=== PATIENT | female | born 1970 | race Caucasian/White ===

== ENCOUNTER 2024-01-16 22:45 | Inpatient (IN) | payer BC, SELFPAY ==
[2024-01-16 18:53] VITALS: BP 130/67
--- NOTE | 2024-01-16 19:43 | ED.GENMED ---
History of Present Illness
General
Chief Complaint: Breathing Problem
Source: patient and family
Time Seen by Provider: 01/16/24 19:30
Travel History
Have you had any contact with someone who has COVID-19?: No
Do you have any symptoms of coronavirus? Fever > 100 degrees, chills, cough, shortness of breath, sore throat, loss of taste or smell, muscle aches, or headache?: No
History of Present Illness
History of Present Illness:
53-year-old female with past medical history of hypertension, pancreatitis, anxiety presenting to the emergency department for evaluation after she started feeling unwell over the weekend with URI-like symptoms, the last 2 days has had 2 separate
episodes of transient shortness of breath stating that yesterday she was walking outside trying to avoid heavy rain fall when she started to feel the shortness of breath and lasted for about 10 minutes or so and then resolved. Again today patient
experiences symptoms again while she was sitting on a bench with symptoms lasting again for a few minutes and then resolving. Patient notes a persistent cough without any sputum production but does feel as if she is wheezing often. Patient has not
attempted any medications for relief. She has no known history of asthma/COPD. Does note a previous history of pneumonia following a surgical procedure due to aspiration. Social history was significant for smoking 1 pack/day for at least 10
years. Patient denies any chest pain, palpitations, diaphoresis, exertional dyspnea, orthopnea, lower extremity edema.
Past History
Past History
ED Past Medical History: HTN and Other (chronic abdominal pain; pancreatitis, )
ED Past Surgical History: Cholecystectomy and Other (gastric bypass, hernia)
Social History
Tobacco: Non-smoker
Alcohol: None
Drug: None
Personal:
Living: with family
Review of Systems
Review of Systems
All Other Systems: ROS reviewed and negative except as documented in HPI and ROS
Phy Exam
Physical Exam
Physical Exam:
GENERAL: Alert , in no apparent distress
EYE: conjunctiva clear
NECK: Supple, no significant adenopathy.
ENT: o/p clr, mmm.
CARDIAC: Regular rate and rhythm
LUNGS: End expiratory phase wheeze mid bilateral posterior lung barraza. Rhonchorous lung sounds right mid to lower lung zone as well. No accessory muscle use. Speaking full sentences. No acute respiratory distress.
NEUROLOGICAL: Alert and oriented
SKIN: Warm and dry, skin intact.
MUSCULOSKELETAL: well perfused.
PSYCH: Normal and appropriate interaction.
Scores
Heart Failure Risk
Heart Failure Risk Score: Not Applicable
Heart Score for Chest Pain Patients
STEMI patient?: Not applicable
Withdrawal Assessment of Alcohol
Withdrawal Assessment Completed?: Not applicable
Course
Orders/Labs/Results
Orders:
Orders
01/16/24 18:56
EKG [Electrocardiogram (*1)] Urgent
Reason for Study: Shortness of Breath
EKG- Treatment ONCE
01/16/24 19:40
Ipratropium/Albuterol Sulfate [Duoneb] 3 ml INH R NOW ONE
Prednisone [Deltasone] 50 mg PO NOW STA
CR Chest - 2 Views Urgent
Comment:
Reason For Exam: URI like symptoms, cough, no fever
01/16/24 21:24
Albuterol Sulfate [Ventolin Nebules] 10 mg INH R NOW STA
01/16/24 21:42
Basic Metabolic Panel Urgent
COVID-19 Antigen Urgent
Source: Nasal Swab
Complete Blood Count/With Diff Urgent
Influenza A+B Rapid Molecular Urgent
GERALD Source: Nasal Swab
Specimen Description:
01/16/24 21:58
Azithromycin [Zithromax] 500 mg PO NOW STA
CefTRIAXone [Rocephin] 1,000 mg IV NOW STA
01/16/24 22:03
Sterile Water [Sterile Water For Injection] 10 ml .ROUTE .STK-MED ONE
01/16/24 22:29
Admit/Transfer Patient As Directed
Co-Sign Provider:
Level of Care: Inpatient admission
Assign to:: Medical/Surgical
Physician / Group: leia
Diagnosis: pneumonia
Reason for Hospitalization: pneumonia
Expected length of stay greater than two midnights?: Yes
ELOS- Estimated Length of Stay in days: 2
I certify the patient meets the requirements for IP care: Yes
01/16/24 22:30
Code Status As Directed
Resuscitation Status: Full Code
Abnormal Lab Results
01/16/24
21:42
Hgb 11.5 L g/dL
(12.0-16.0)
Hct 34.9 L %
(37.0-47.0)
MPV 11.0 H fL
(7.4-10.4)
Absolute Neuts (auto) 8.9 H 10^3/uL
(1.4-6.5)
Neutrophils % 83.1 H %
(42.2-75.2)
Lymphocytes % 12.0 L %
(20.5-51.1)
Sodium 129 L mmol/L
(135-145)
Chloride 97 L mmol/L
(98-107)
Glucose 144 H mg/dl
(70-99)
01/16/24 21:42
01/16/24 21:42
Vital Signs
Initial and Last Documented VS:
Initial Vital Signs
Temp Pulse Resp BP Pulse Ox
98.9 F 95 22 130/67 97
01/16/24 18:53 01/16/24 18:53 01/16/24 18:53 01/16/24 18:53 01/16/24 18:53
Last Documented Vital Signs
Temp Pulse Resp BP Pulse Ox
98.9 F 91 22 122/70 86
01/16/24 18:53 01/16/24 21:45 01/16/24 21:45 01/16/24 21:00 01/16/24 21:45
MDM/Problems Addressed
Differential Diagnosis Includes:
Pneumonia, viral URI, bronchitis, undiagnosed asthma/COPD exacerbation given patient's smoking history
MDM/Problems Addressed:
53-year-old female presenting to the emergency department for evaluation following a recent upper respiratory infection, now with lingering cough. Wheezing noted on exam but no acute respiratory distress will obtain chest x-ray to rule out
pneumonia. Will order DuoNeb and prednisone. Reassessment following with ENT discharge home. Also of note, Patient is currently taking amoxicillin for an infected tooth as part of recent dental work.
*Radiology
Radiology exam reviewed: radiology read reviewed
*Pulse Oximetry
Patient hypoxic: yes
*EKG
Interpreted by ED Provider?: Yes
Heart Rate: 93
Rate: normal
Rhythm: sinus
Ischemia: no ischemia
*Hand Painter Interpretation
Rate: normal
Rhythm: sinus
*Critical Care Note
Total Time (30-74mins, 75-104mins- exclusive of procedures): Not Applicable
Comment
Comment:
Prior to receiving the DuoNeb informed by nurse that patient's oxygen saturation went down to 87% while she was in room with patient and was placed on 2 L via nasal cannula with good response to 97%. Patient completed DuoNeb without much difficulty
however she remains with wheezing and rhonchi on reevaluation. Chest x-ray was read by radiology as subtle bilateral infiltrates. Will treat with additional albuterol nebulizer given her continued wheezing and reassess following. If patient
remains hypoxic she will require admission.
Patient Management
Discussion with other providers: Hospitalist
Escalation/DeEscalation of care consider admission/obs:
Patient's oxygen off of 2 L via nasal cannula dropped again into the mid to upper 80s. This was turned back on and decision was ultimately made to admit patient due to her pneumonia with mild hypoxia. Patient is in agreement with this plan.
Rocephin and Zithromax ordered for community-acquired pneumonia. She is continuing on her continuous albuterol neb at present. Hospitalist team is aware and accepts for continued evaluation and treatment.
ED Attending Note
-
Portions of this chart may have been created with voice recognition software.� Occasional wrong word or��sound alike� substitutions may have occurred due to the inherent limitations of voice recognition software.
Discharge Plan
Departure
Patient Disposition: Admit
Date of Disposition: 01/16/24
Time of Disposition: 21:58
Presentation/result/management discussed w/ accepting MD/DO: Hospitalist
Discharge Problem:
Pneumonia, Hypoxia
Prescriptions:
No Action
amoxicillin 500 mg Capsule
500 mg PO TID
Patient Comments:
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
atorvastatin [Lipitor] 40 mg Tablet
40 mg PO DAILY
clonazepam 0.5 mg Tablet
0.5 mg PO HS
clonazepam 0.5 mg Tablet
0.5 mg PO DAILYPRN PRN (Reason: anxiety)
lisinopril 10 mg Tablet
10 mg PO DAILY
escitalopram oxalate [Lexapro] 20 mg Tablet
20 mg PO DAILY
Referrals:
Cassius Cruz DO [Family Provider] -
Interventions
Interventions:
*Risk Screen - Suicide Last Done: 01/16/24 18:53
*General Assessment Last Done: 01/16/24 18:53
*Neglect/Abuse Screening Last Done: 01/16/24 18:53
*ED COVID-19 Vaccine History Last Done: 01/16/24 18:53
ED- Cardiac Assessment Last Done: 01/16/24 20:20
ED- Pulmonary Assessment Last Done: 01/16/24 20:20
Discharge Date and Time
Print Language: POLISH
[2024-01-16] MEDS: DUONEB 3 ML INH (20:13)
[2024-01-16] MEDS: DELTASONE 50 MG PO (20:13)
[2024-01-16 20:15] VITALS: BP 109/64
[2024-01-16 21:00] VITALS: BP 122/70
[2024-01-16] MEDS: VENTOLIN NEBULES 10 MG INH (21:43)
[2024-01-16 21:53] LABS: % Basophils 0.3 % (0-2); % Eosinophils 0.7 % (0-6); % Immature Granulocytes 0.4 % (0-0.5); % Monocytes 3.5 % (1.7-9.3); % Neutrophils 83.1 % (42.2-75.2); Absolute Eosinophils 0.1 10^3/uL (0-0.7); Absolute Lymphocytes 1.3 10^3/uL (1.2-3.4); Absolute Monocytes 0.4 10^3/uL (0.1-0.6); Absolute Neutrophils 8.9 10^3/uL (1.4-6.5); Hematocrit 34.9 % (37.0-47.0); Hemoglobin 11.5 g/dL (12.0-16.0); Mean Corpuscular Hgb 27.1 pg (27.0-31.0); Mean Corpuscular Volume 82.1 fL (81.0-99.0); Nucleated Red Blood Cells % 0 %; Platelet Count 180 10^3/uL (130-400); Red Blood Cell Count 4.25 10^6/uL (4.20-5.40); Red Cell Dist. Width 14.2 % (11.5-14.5); White Blood Cell Count 10.7 10^3/uL (4.8-10.8)
[2024-01-16] MEDS: ZITHROMAX 500 MG PO (22:10)
[2024-01-16] MEDS: ROCEPHIN 1000 MG IV (22:10)
[2024-01-16 22:11] LABS: COVID-19 Antigen Negative (Negative)
[2024-01-16 22:12] LABS: Blood Urea Nitrogen 13 mg/dl (7-17); Calcium 8.4 mg/dl (8.4-10.2); Carbon Dioxide 22 mmol/L (22-30); Chloride 97 mmol/L (98-107); Glucose 144 mg/dl (70-99); Potassium 4.2 mmol/L (3.5-5.1); Sodium 129 mmol/L (135-145); eGFR > 60.00
--- NOTE | 2024-01-16 22:34 | HPS.HSE ---
Family Physician
-
Family Physician: Cassius Cruz
Chief Complaint
-
shortness of breath
History of Present Illness
53-year-old female past medical history of hypertension, pancreatitis, anxiety, gastric bypass, presented to the emergency room after having URI-like symptoms over the weekend. She has been having cough over the past 3 days without sputum
production but with wheezing. Denies sore throat or runny nose. She has had transient shortness of breath while she was walking yesterday lasted 10 minutes and then resolved. Today she had similar symptoms while she was sitting lasting a few
minutes and then resolved. Today she had severe charley horses all over her body. She has not taken any medications. She denies any chest pain, fevers or chills. She has chronic lower extremity edema. She did have some nausea but denies any
vomiting. Patient's family notes that she has been more confused and lethargic today.
She had tooth removal 3 days ago and since then she has been taking amoxicillin. She did have an episode of diarrhea today.
She smokes a pack of cigarettes a day. She denies alcohol use.
Medical History
Past Medical History
Past Medical History: Reports Other ( hypertension, pancreatitis, anxiety, gastric bypass,)
Past Surgical History: Reports Other (Cholecystectomy, hernia repair, gastric bypass, breast reduction surgery, bilateral shoulder surgeries, tonsillectomy, rummy tuck )
Social History
Tobacco: Smoker
Alcohol: None
Drug: None
Family History
Family History: Not pertinent
Allergies / Home Medications
Allergies reflects when Allergies were last updated in [employer].
Home Medications with original date entered in [employer]
Allergy/Medication List:
Allergies
Allergy/AdvReac Type Severity Reaction Status Date / Time
ciprofloxacin [From Cipro] Allergy Rash Verified 12/07/22 21:58
Home Medications
amoxicillin 500 mg capsule 500 mg PO TID 01/16/24
atorvastatin 40 mg tablet (Lipitor) 40 mg PO DAILY 01/16/24
clonazepam 0.5 mg tablet 0.5 mg PO DAILYPRN PRN anxiety 01/16/24
clonazepam 0.5 mg tablet 0.5 mg PO HS 01/16/24
escitalopram oxalate 20 mg tablet (Lexapro) 20 mg PO DAILY 01/16/24
lisinopril 10 mg tablet 10 mg PO DAILY 01/16/24
Review of Systems
-
History Source: Patient
A 12 point ROS was completed and negative except as noted: Yes
Constitutional: Reports No Symptoms
EENT: Reports No Symptoms
Respiratory: Reports See HPI
Cardiac: Reports No Symptoms
Abdomen/GI: Reports No Symptoms
: Reports No Symptoms
Musculoskeletal: Reports No Symptoms
Skin: Reports No Symptoms
Neurological: Reports No Symptoms
Endocrine: Reports No Symptoms
Hematologic/Lymphatic: Reports No Symptoms
Psych: Reports No Symptoms
Physical Exam
Vital Signs
Vital Signs
Temp Pulse Resp BP Pulse Ox
98.9 F 91 22 122/70 86
01/16/24 18:53 01/16/24 21:45 01/16/24 21:45 01/16/24 21:00 01/16/24 21:45
Physical Exam
General: Well Developed, Well Nourished and No Apparent Distress
HEENT: NormoCephalic, Moist mucous membranes and Atraumatic
Respiratory: Wheezes
Cardiac: S1/S2 and Regular Rhythm; No Murmur or Rub
GI: Soft, Non Tender, Non Distended and Normal Bowel Sounds; No Organomegaly
Rectal: Deferred by Provider
Musculoskeletal: No Clubbing, No Cyanosis and No Edema
Skin: No Rash
Neuro: Nonfocal/grossly intact
Laboratory Results
-
01/16/24 21:42
01/16/24 21:42
Data Reviewed
-
Lab Data: Labs Reviewed by me
Old Records: Reviewed
Impression/Plan
-
IMPRESSION:
PLAN:
# Community-acquired pneumonia
-COVID-negative
-Influenza negative
-IV fluids
-Ceftriaxone/azithromycin
-Significant bilateral wheezing on examination
-DuoNebs every 6 hours
-Prednisone 40 mg daily
-Mucinex
# Antibiotic associated diarrhea
-Check C. difficile, stool culture, norovirus if recurrent diarrhea although appears to have resolved
# Hyponatremia likely due to GI loss/poor p.o. intake
-Monitor with IV fluid
# Recent tooth extraction
-Stop amoxicillin while on IV antibiotics
Essential hypertension
-Continue lisinopril
Chronic venous insufficiency
-Swelling stable
Anxiety
-Continue Lexapro, clonazepam
Hyperlipidemia
-Continue statin
History of gastric bypass
History of pancreatitis
Active smoker
-Nicotine patch
Full code
DVT prophylaxis�heparin
Regular diet
[2024-01-16] MEDS: NSS 1000 IV (23:40)
[2024-01-17] MEDS: KLONOPIN 0.5 MG PO ×3 (00:31→22:43)
[2024-01-17] MEDS: LEXAPRO 20 MG PO ×2 (00:31→08:30)
[2024-01-17 06:13] LABS: % Basophils 0.1 % (0-2); % Immature Granulocytes 0.4 % (0-0.5); % Lymphocytes 7.5 % (20.5-51.1); Absolute Lymphocytes 0.5 10^3/uL (1.2-3.4); Absolute Monocytes 0.1 10^3/uL (0.1-0.6); Absolute Neutrophils 6.5 10^3/uL (1.4-6.5); Hematocrit 33.3 % (37.0-47.0); Hemoglobin 11.2 g/dL (12.0-16.0); Mean Corp Hgb Conc. 33.6 g/dL (33.0-37.0); Mean Corpuscular Hgb 27.3 pg (27.0-31.0); Mean Platelet Volume 11.2 fL (7.4-10.4); Nucleated Red Blood Cells % 0 %; Platelet Count 173 10^3/uL (130-400); Red Blood Cell Count 4.11 10^6/uL (4.20-5.40); Red Cell Dist. Width 14.4 % (11.5-14.5); White Blood Cell Count 7.2 10^3/uL (4.8-10.8)
[2024-01-17 06:45] LABS: Blood Urea Nitrogen 13 mg/dl (7-17); Calcium 8.1 mg/dl (8.4-10.2); Carbon Dioxide 20 mmol/L (22-30); Chloride 103 mmol/L (98-107); Glucose 295 mg/dl (70-99); Potassium 4.5 mmol/L (3.5-5.1); Sodium 130 mmol/L (135-145); eGFR > 60.00
[2024-01-17] MEDS: DUONEB 3 ML INH ×4 (08:29→20:34)
[2024-01-17] MEDS: DELTASONE 40 MG PO (08:30)
[2024-01-17] MEDS: MUCINEX 600 MG PO ×2 (08:30→11:23)
[2024-01-17] MEDS: LIPITOR 40 MG PO (08:30)
[2024-01-17] MEDS: ZESTRIL 10 MG PO (08:32)
[2024-01-17] MEDS: HEPARIN 5000 UNITS SC ×2 (08:32→19:43)
[2024-01-17] MEDS: NICODERM TRANSDERMAL TRANSDERM (08:34)
[2024-01-17 08:35] VITALS: BP 111/76
--- NOTE | 2024-01-17 09:45 | W.PN.HOSP.TC ---
Today's Communication/Plan
-
..
Assessment / Plan
Assessment / Plan
Physical Exam
General: Well Developed, Well Nourished and No Apparent Distress
HEENT: NormoCephalic, Moist mucous membranes and Atraumatic
Respiratory: Wheezes
Cardiac: S1/S2 and Regular Rhythm; No Murmur or Rub
GI: Soft, Non Tender, Non Distended and Normal Bowel Sounds; No Organomegaly
Rectal: Deferred by Provider
Musculoskeletal: No Clubbing, No Cyanosis and No Edema
Skin: No Rash
Neuro: Nonfocal/grossly intact
# Community-acquired pneumonia
-COVID-negative
-Influenza negative
-IV fluids
-Check urine for Legionella
-Ceftriaxone/azithromycin
-Significant bilateral wheezing on examination
-DuoNeb every 6 hours
-Start the patient on IV steroid
-Mucinex
-Appreciate pulmonary input
# Acute hypoxic respiratory failure. SaO2 86 on room air and 92% on 2 L sometimes dropped to 89% while talking
Continue to treat pneumonia and COPD exacerbation
# Hyponatremia
Mild. No confusion
#Suspected COPD/asthma with acute exacerbation
Continue steroid therapy, nebulizer, oxygen
Counseled to avoid smoking
# hyperglycemia, possibly induced by steroid. Will start the patient on insulin sign scale. Check hemoglobin A1c
# Antibiotic associated diarrhea
-Check C. difficile, stool culture, norovirus if recurrent diarrhea although appears to have resolved
# Hyponatremia likely due to GI loss/poor p.o. intake
-Monitor with IV fluid
# Recent tooth extraction
-Stop amoxicillin while on IV antibiotics
Essential hypertension
-Continue lisinopril
Chronic venous insufficiency
-Swelling stable
Anxiety
-Continue Lexapro, clonazepam
Hyperlipidemia
-Continue statin
History of gastric bypass
History of pancreatitis
Active smoker
-Nicotine patch
Full code
DVT prophylaxis�heparin
Regular diet
Total time spent to see the patient, examine the patient on the floor, review data and lab results, discuss treatment plan with patient, nursing staff around 55 minutes.
Anticipated Discharge: 24 - 48 hours
Subjective/Interval History
-
Date of Service: January 17, 2024
She feels better but still weak
less cough and sob
Objective Data
-
Labs:
Laboratory Results
01/16/24 01/17/24
21:42 05:58
WBC 10.7 7.2
Hgb 11.5 L 11.2 L
Hct 34.9 L 33.3 L
Plt Count 180 173
Sodium 129 L 130 L
Potassium 4.2 4.5
Chloride 97 L 103
Carbon Dioxide 22 20 L
BUN 13 13
Creatinine 0.9 0.8
Glucose 144 H 295 H
Calcium 8.4 8.1 L
Vital Signs:
Vital Signs
Temp Pulse Resp BP Pulse Ox
98.9 F 72 16 122/70 94
01/16/24 18:53 01/17/24 08:30 01/17/24 08:30 01/16/24 21:00 01/17/24 08:30
I&O
01/16/24 01/17/24 01/18/24
06:59 06:59 06:59
Intake Total 1120 / 1120
Balance 1120 / 1120
--- NOTE | 2024-01-17 09:49 | CON.PUL ---
Consultation
Consultation Request
Date/Time Consultation Requested: 01/17/2024-7 AM
Date/Time Consultation Performed: 01/17/2024-8 AM
Requesting Provider: Hospitalist
Performing Provider: Dr. Cerrato
Reason for Consultation: Pneumonia
Medical History
-
Chief Complaint: Shortness of breath
History of Present Illness:
53-year-old obese smoking female with history of hypertension, pancreatitis, gastric bypass, anxiety who has had covid twice in the past the last time a couple months ago presents with upper respiratory tract symptoms with progressive shortness of
breath, cough over the last 5 days-pulmonary consulted for pneumonia and shortness of breath 01/17/24. Patient states that her son gave her a respiratory tract infection last weekend. She had progressive nasal congestion but eventually chest
congestion. She had a nonproductive cough. No fevers chills or night sweats. She admitted to increasing shortness of breath, wheezing, and cough. She continues to smoke a pack of cigarettes daily. She has chronic mild lower extremity edema
which is not worsened. She did not complain of any abdominal pain nausea vomiting weakness or numbness. She has gained 60 pounds in the last 1 year. She does snore at nighttime.
Past Medical History
Past Medical History: None (Hypertension. Obesity-history of gastric bypass. History of pancreatitis. Anxiety. Cholecystectomy. Hernia repair. Breast reduction. Bilateral shoulder surgeries. Tummy tuck. Tonsillectomy.)
Social History
Tobacco: Smoker (1 pack/day x 35 years)
Alcohol: None
Drug: None
Personal:
Living: With Family
Occupational Exposures: No known asbestos exposure
Environmental Exposures: No known tuberculosis exposure
Family History
Family History: Reviewed & Not Pertinent
Allergies / Home Medications
Allergies
Allergy/AdvReac Type Severity Reaction Status Date / Time
ciprofloxacin [From Cipro] Allergy Rash Verified 12/07/22 21:58
Home Medications
�Medication �Instructions �Recorded �Confirmed �Last Taken �Type
amoxicillin 500 mg capsule 500 mg PO TID 01/16/24 01/16/24 01/16/24 History
atorvastatin 40 mg tablet (Lipitor) 40 mg PO DAILY 01/16/24 01/16/24 01/15/24 History
clonazepam 0.5 mg tablet 0.5 mg PO DAILYPRN PRN anxiety 01/16/24 01/16/24 01/16/24 History
clonazepam 0.5 mg tablet 0.5 mg PO HS 01/16/24 01/16/24 Unknown History
escitalopram oxalate 20 mg tablet 20 mg PO DAILY 01/16/24 01/16/24 01/15/24 History
(Lexapro)
lisinopril 10 mg tablet 10 mg PO DAILY 01/16/24 01/16/24 01/15/24 History
Review of Systems
-
Unable to Obtain full review of systems at this time due to: Other (Per HPI)
Vitals / Labs / Diagnostic Testing
Vital Signs
Temp Pulse Resp BP Pulse Ox
98.9 F 72 16 122/70 94
01/16/24 18:53 01/17/24 08:30 01/17/24 08:30 01/16/24 21:00 01/17/24 08:30
Lab Data
01/17/24 05:58
01/17/24 05:58
Microbiology
01/16/24 21:42 Nasal Swab Influenza Types A & B (GWENDOLYN) - Final
Negative for Influenza A & B, NAAT
Negative results must be combined with clinical observations
and patient history.
Nucleic Acid Amplification test (NAAT)performed on the
[employer] platform.
Diagnostic Testing:
Physical Exam
-
Exam:
Well-nourished and well-developed in no apparent distress
HEENT-atraumatic, normocephalic, thick neck
Neck-supple, no JVD, no bruit
Heart-regular rate and rhythm-no murmurs, rubs or gallops
Chest with diminished breath sounds, prolonged expiratory time, expiratory wheezes and rhonchi with crackles at both bases
Back without CVA tenderness
Abdomen-soft, nontender, nondistended, no hepatosplenomegaly
Extremities-no cyanosis, clubbing, trace lower extremity edema
Integument-intact, no rashes, lesions or ecchymosis
Neurology-alert and oriented, nonfocal motor and sensory exam
Assessment
-
53-year-old obese smoking female with history of hypertension, pancreatitis, gastric bypass, anxiety who has had covid twice in the past the last time a couple months ago presents with upper respiratory tract symptoms with progressive shortness of
breath, cough over the last 5 days-pulmonary consulted for pneumonia and shortness of breath 01/17/24.
Community-acquired pneumonia
Suspected COPD/asthma with acute exacerbation
Antibiotic associated diarrhea
Hyponatremia-serum sodium 129
Recent tooth extraction-treated with amoxicillin
Ljbtaw-wuzzlovvpc-ebmlyyazoe 11.2
Hyperglycemia-blood sugar 295
At risk for obstructive sleep apnea
Conditions present prior to admission:
Hypertension.
Obesity-history of gastric bypass-recently gained 60 pounds / 1 year
History of pancreatitis.
Anxiety.
Cholecystectomy. Hernia repair. Breast reduction. Bilateral shoulder surgeries. Tummy tuck. Tonsillectomy.
Plan
Respiratory decompensation likely related to respiratory tract infection and COPD/asthma exacerbation-significant wheezing on exam
Supplemental oxygen as needed
High flow oxygen if needed
Nebulizers
Mucolytic's
Placed on prednisone-try Decadron Decadron
Aspiration precautions
Check cultures
Urine Legionella and streptococcal antigen
Empiric antibiotics-Rocephin and azithromycin initiated
Replace electrolytes
Monitor hemoglobin
Monitor blood sugar
Insulin supplementation as needed
Smoking cessation counseling provided and will be ongoing
Nicotine patch
DVT prophylaxis-on subcu heparin
Nutrition
Early mobilization
Outpatient pulmonary/sleep disorders [id number], smoking cessation counseling, low-dose lung cancer screening CAT scans, etc.
Diagnostic data:
Chest x-ray 01/16/24-subtle pneumonia seen bilaterally
Data Reviewed
-
EKG: Report reviewed by me
Radiology: Image personally visualized and interpreted and Report reviewed by me
Medical Tests (Nuc Med, Echo etc): Report reviewed by me
Labs: Labs reviewed by me
Old Records: Reviewed
Total Time Spent with Patient (in minutes): 65
[2024-01-17] MEDS: DECADRON 4 MG IV ×2 (11:23→19:45)
[2024-01-17] MEDS: NSS 1000 IV ×2 (11:30→23:21)
[2024-01-17 12:07] LABS: Glucose - Point of Care 281 mg/dl (70-99)
[2024-01-17 15:05] VITALS: BP 88/53
[2024-01-17 17:34] LABS: Glucose - Point of Care 341 mg/dl (70-99)
[2024-01-17] MEDS: NOVOLOG FLEXPEN-MODERATE RESISTANCE 7 UNITS SC (18:01)
[2024-01-17] MEDS: MUCINEX 1200 MG PO (19:43)
[2024-01-17 19:55] VITALS: BP 111/65
[2024-01-17 22:33] LABS: Glucose - Point of Care 299 mg/dl (70-99)
[2024-01-17] MEDS: ROCEPHIN 1000 MG IV (22:43)
[2024-01-17] MEDS: STERILE WATER FOR INJECTION 10 ML IV (22:44)
[2024-01-17 23:00] VITALS: BP 132/70
[2024-01-17] MEDS: ZITHROMAX INFUSION 250 IV (23:20)
[2024-01-18] MEDS: PROTONIX 40 MG PO (00:55)
[2024-01-18] MEDS: KLONOPIN 0.5 MG PO ×2 (00:56→21:17)
--- NOTE | 2024-01-18 01:13 | PTCARENOTE ---
Pt reported feeling of 'heart burn,' pointing to center of chest and upward toward throat. Pt also reported feeling of a 'panic attack.' Pt stated they take 'clonazepam' for 'panic attacks.' Notified RODOLFO Uriarte. New orders placed.
Administered daily PRN clonazepam. Plan of care ongoing.
[2024-01-18] MEDS: DECADRON 4 MG IV (04:59)
[2024-01-18 07:00] VITALS: BP 111/67
[2024-01-18 07:16] LABS: Glucose - Point of Care 264 mg/dl (70-99)
[2024-01-18] MEDS: LIPITOR 40 MG PO (07:25)
[2024-01-18] MEDS: LEXAPRO 20 MG PO (07:25)
[2024-01-18] MEDS: MUCINEX 1200 MG PO ×2 (07:25→21:16)
[2024-01-18] MEDS: NOVOLOG FLEXPEN-MODERATE RESISTANCE 5 UNITS SC ×2 (07:26→12:14)
[2024-01-18] MEDS: NICODERM TRANSDERMAL 14 MG TRANSDERM (07:26)
[2024-01-18] MEDS: HEPARIN 5000 UNITS SC ×2 (07:26→21:16)
[2024-01-18] MEDS: ZESTRIL 10 MG PO (07:36)
[2024-01-18] MEDS: DUONEB 3 ML INH ×4 (08:14→21:42)
[2024-01-18 08:19] LABS: Blood Urea Nitrogen 19 mg/dl (7-17); Calcium 8.9 mg/dl (8.4-10.2); Carbon Dioxide 25 mmol/L (22-30); Chloride 104 mmol/L (98-107); Glucose 256 mg/dl (70-99); Potassium 5.3 mmol/L (3.5-5.1); Sodium 134 mmol/L (135-145); eGFR > 60.00
--- NOTE | 2024-01-18 10:35 | W.PN.HOSP.TC ---
Today's Communication/Plan
-
.
Assessment / Plan
Assessment / Plan
Physical Exam
General: Well Developed, Well Nourished and No Apparent Distress
HEENT: NormoCephalic, Moist mucous membranes and Atraumatic
Respiratory: much less wheezes
Cardiac: S1/S2 and Regular Rhythm; No Murmur or Rub
GI: Soft, Non Tender, Non Distended and Normal Bowel Sounds; No Organomegaly
Rectal: Deferred by Provider
Musculoskeletal: No Clubbing, No Cyanosis and No Edema
Skin: No Rash
Neuro: Nonfocal/grossly intact
# Community-acquired pneumonia
se is feeling better, less cough
trial to wean off O2 today
-COVID-negative
-Influenza negative
- no need for more IV fluids
-C/w Ceftriaxone/azithromycin
-DuoNeb every 6 hours
- IV steroid
-Mucinex
-Appreciate pulmonary input
# Acute hypoxic respiratory failure. SaO2 86 on room air with distress, sob and tachypnea/tachycardia and 92% on 2 L sometimes dropped to 89% while talking
Continue to treat pneumonia and COPD exacerbation
# Hyperkalemia
Already got lisinopril today, hold further doses.
will give Lokelma
# Hyponatremia, better today at 134
Mild. No confusion
#Suspected COPD/asthma with acute exacerbation
Continue steroid therapy, nebulizer, oxygen
Counseled to avoid smoking
# hyperglycemia, possibly induced by steroid. AM BS 264
Add Lantus at 10 units
c/w insulin sign scale. Check hemoglobin A1c
# Antibiotic associated diarrhea
-No diarrhea
No abd pain
# Recent tooth extraction
-Stop amoxicillin while on IV antibiotics
Essential hypertension
-Low normal
holding lisinopril with high K
Chronic venous insufficiency
-Swelling stable
Anxiety
-Continue Lexapro, clonazepam
Hyperlipidemia
-Continue statin
History of gastric bypass
History of pancreatitis
Active smoker
-Nicotine patch
Full code
DVT prophylaxis�heparin
Regular diet
Total time spent to see the patient, examine the patient on the floor, review data and lab results, discuss treatment plan with patient, nursing staff around 57 minutes.
Anticipated Discharge: 24 - 48 hours
Subjective/Interval History
-
Date of Service: January 18, 2024
She feels better
no fevers
less cough
trial of weaning off nasal O2
Objective Data
-
Labs:
Laboratory Results
01/18/24
07:08
Sodium 134 L
Potassium 5.3 H
Chloride 104
Carbon Dioxide 25
BUN 19 H
Creatinine 0.8
Glucose 256 H
Calcium 8.9
Vital Signs:
Vital Signs
Temp Pulse Resp BP Pulse Ox
97.5 F 73 16 111/67 96
01/18/24 07:00 01/18/24 08:15 01/18/24 08:15 01/18/24 07:36 01/18/24 08:15
I&O
01/17/24 01/18/24 01/19/24
06:59 06:59 06:59
Intake Total 1120 / 1120 1330 / 1330
Balance 1120 / 1120 1330 / 1330
[2024-01-18 11:05] LABS: Glycohemoglobin (HgbA1c) 7.7 % (4.0-5.6)
[2024-01-18 11:50] LABS: Glucose - Point of Care 297 mg/dl (70-99)
[2024-01-18] MEDS: LOKELMA 10 GRAM PO (12:06)
[2024-01-18] MEDS: NSS 1000 IV (13:07)
--- NOTE | 2024-01-18 14:39 | W.PN.PUL3 ---
Today's Communication / Plan
-
Transition to prednisone
Continue antibiotics
Continue nebulizer while in the hospital
Mucolytic's
Increase activity as able
Assessment
-
53-year-old obese smoking female with history of hypertension, pancreatitis, gastric bypass, anxiety who has had covid twice in the past the last time a couple months ago presents with upper respiratory tract symptoms with progressive shortness of
breath, cough over the last 5 days-pulmonary consulted for pneumonia and shortness of breath 01/17/24.
Community-acquired pneumonia
Suspected COPD/asthma with acute exacerbation
Antibiotic associated diarrhea
Hyponatremia-serum sodium 129
Recent tooth extraction-treated with amoxicillin
Rqqnlp-fkekkkbgfc-szculyhcai 11.2
Hyperglycemia-blood sugar 295
At risk for obstructive sleep apnea
Conditions present prior to admission:
Hypertension.
Obesity-history of gastric bypass-recently gained 60 pounds / 1 year
History of pancreatitis.
Anxiety.
Cholecystectomy. Hernia repair. Breast reduction. Bilateral shoulder surgeries. Tummy tuck. Tonsillectomy.
Plan
Respiratory decompensation likely related to respiratory tract infection and COPD/asthma exacerbation-significant wheezing on exam.
-
Not requiring oxygen
Nebulizers sfcidb-fwy-ryzsy continue while in the hospital
Mucolytic's
Transition to prednisone 30 mg. Not bronchospastic on exam 01/18/2024. Patient hyperglycemic as well. Decrease by 10 mg every 72 hours to off
Aspiration precautions
Check cultures negative so far
No sputum available.
Urine Legionella and streptococcal antigen negative so far
Empiric antibiotics-Rocephin and azithromycin continue for now. Hopefully can transition to oral antibiotics in the next 24 hours.
Monitor blood sugar, particularly on high-dose of steroids
Insulin supplementation as needed
Smoking cessation counseling provided and will be ongoing
Nicotine patch
DVT prophylaxis-on subcu heparin
Outpatient pulmonary/sleep disorders jocrti-gw-[id number], smoking cessation counseling, low-dose lung cancer screening CAT scans, etc.
If improved from the pulmonary perspective possible discharge tomorrow.
Diagnostic data:
Chest x-ray 01/16/24-subtle pneumonia seen bilaterally
Subjective Data
-
Date of Service:
Date of Service: January 18, 2024
Chief Complaint: Pulmonary Follow Up (Acute exacerbation COPD/pneumonia)
Subjective:
Patient feels much better, was able to ambulate around the levin without significant symptoms
No longer has any wheezing
No significant phlegm production
Denies hemoptysis
Review of Systems
Cardiopulmonary: Dyspnea on Exertion (n), Cough, Sputum Production (n) and Hemoptysis (n)
GI: Abdominal Pain (n), Nausea (n) and Vomiting (n)
Objective Data
Data Reviewed
Vital Signs / I&O / Oxygen:
Vital Signs
Temp Pulse Resp BP Pulse Ox
97.5 F 62 16 111/67 96
01/18/24 07:00 01/18/24 11:21 01/18/24 11:21 01/18/24 07:36 01/18/24 11:21
Intake and Output
01/17/24 01/18/24 01/19/24
06:59 06:59 06:59
Intake Total 1120 / 1120 1330 / 1330
Balance 1120 / 1120 1330 / 1330
SaO2 96
Nasal Cannula flow liters per 2
minute
Physical Exam
General: Respiratory Distress (n)
HEENT: Normocephalic
Cardiovascular: S1-S2 and Regular Rhythm
Respiratory: Wheeze and Non-Labored Respirations
GI: Soft and Non Distended
Neurology: Awake, Alert, Oriented and AO x 3
Skin: Warm
Labs/Micro/Reports
Lab Data
01/17/24 05:58
01/18/24 07:08
Microbiology
01/16/24 21:42 Nasal Swab Influenza Types A & B (GWENDOLYN) - Final
Negative for Influenza A & B, NAAT
Negative results must be combined with clinical observations
and patient history.
Nucleic Acid Amplification test (NAAT)performed on the
[employer] platform.
[2024-01-18 15:00] VITALS: BP 142/76
--- NOTE | 2024-01-18 15:13 | CM ---
Patient seen bedside, spouse present but left the room, initial assessment completed. Patient reports she lives with her and two sons in a multiple story home, 5 steps to enter. Patient denies DME, VN, or SNF. Patient confirms PCP Cassius
Anthony, pharmacy [facility], confirms she has prescription coverage. CM will continue to follow for discharge planning needs.
Plan; home no needs likely.
[2024-01-18 17:00] LABS: Glucose - Point of Care 348 mg/dl (70-99)
[2024-01-18] MEDS: MONISTAT-3 (MICONAZOLE) 200 MG VAG (17:18)
[2024-01-18] MEDS: NOVOLOG FLEXPEN-MODERATE RESISTANCE 9 UNITS SC (17:19)
[2024-01-18 21:17] LABS: Glucose - Point of Care 243 mg/dl (70-99)
[2024-01-18] MEDS: LANTUS 0.100000000000000006 UNITS SC (21:18)
[2024-01-18] MEDS: STERILE WATER FOR INJECTION 10 ML IV (21:19)
[2024-01-18] MEDS: ZITHROMAX INFUSION 250 IV (21:19)
[2024-01-18] MEDS: ROCEPHIN 1000 MG IV (21:19)
[2024-01-18 23:00] VITALS: BP 107/52
[2024-01-19 07:00] VITALS: BP 106/65
[2024-01-19 07:13] LABS: Blood Urea Nitrogen 20 mg/dl (7-17); Calcium 8.5 mg/dl (8.4-10.2); Chloride 109 mmol/L (98-107); Glucose 159 mg/dl (70-99); Potassium 4.2 mmol/L (3.5-5.1); Sodium 134 mmol/L (135-145); eGFR > 60.00
[2024-01-19 07:23] LABS: Carbon Dioxide 22 mmol/L (22-30)
[2024-01-19] MEDS: DUONEB 3 ML INH (07:26)
[2024-01-19 07:57] LABS: Glucose - Point of Care 153 mg/dl (70-99)
[2024-01-19] MEDS: NOVOLOG FLEXPEN-MODERATE RESISTANCE 1 UNITS SC ×2 (08:48→12:08)
[2024-01-19] MEDS: MUCINEX 1200 MG PO (08:49)
[2024-01-19] MEDS: DELTASONE 30 MG PO (08:49)
[2024-01-19] MEDS: LIPITOR 40 MG PO (08:49)
[2024-01-19] MEDS: LEXAPRO 20 MG PO (08:49)
[2024-01-19] MEDS: LANTUS 0.100000000000000006 UNITS SC (08:50)
[2024-01-19] MEDS: HEPARIN 5000 UNITS SC (08:51)
[2024-01-19] MEDS: NICODERM TRANSDERMAL TRANSDERM (08:52)
--- NOTE | 2024-01-19 09:26 | W.PN.HOSP.TC ---
Today's Communication/Plan
-
.
Assessment / Plan
Assessment / Plan
Physical Exam
General: Well Developed, Well Nourished and No Apparent Distress
HEENT: NormoCephalic, Moist mucous membranes and Atraumatic
Respiratory: much less wheezes
Cardiac: S1/S2 and Regular Rhythm; No Murmur or Rub
GI: Soft, Non Tender, Non Distended and Normal Bowel Sounds; No Organomegaly
Rectal: Deferred by Provider
Musculoskeletal: No Clubbing, No Cyanosis and No Edema
Skin: No Rash
Neuro: Nonfocal/grossly intact
# Community-acquired pneumonia
se is feeling better, less cough
SaO2 94-96% on RA while resting but dropped to 87% upon ambulation
-COVID-negative
-Influenza negative
- no need for more IV fluids
-C/w Ceftriaxone/azithromycin
-DuoNeb every 6 hours
- IV steroid, changed to oral prednisone and taper.
-Mucinex
-Appreciate pulmonary input
# Newly diagnosed DM
HGB A1c 7.7
Hx of gestation diabetes in past
Will start the patient on Metformin
c/w Accu-checks, AM BS 153. Taper steroid quickly.
Consult computer systems hardware analyst on Saturday.
# Acute hypoxic respiratory failure. SaO2 86 on room air with distress, sob and tachypnea/tachycardia and 92% on 2 L sometimes dropped to 89% while talking
Continue to treat pneumonia and COPD exacerbation
# Hyperkalemia, resolved
holding lisinopril today,
Lokelma given 4/
# Hyponatremia, better today at 134
Mild. No confusion
#Suspected COPD/asthma with acute exacerbation
Continue steroid therapy, nebulizer, oxygen
Counseled to avoid smoking
# hyperglycemia, possibly induced by steroid. AM BS 264
Add Lantus at 10 units
c/w insulin sign scale. Check hemoglobin A1c
# Antibiotic associated diarrhea
-No diarrhea
No abd pain
# Recent tooth extraction
-Stopped amoxicillin while on IV antibiotics
Essential hypertension
-Low normal. AM BP 106/65
Chronic venous insufficiency
-Swelling stable
Anxiety
-Continue Lexapro, clonazepam
Hyperlipidemia
-Continue statin
History of gastric bypass
History of pancreatitis
Active smoker
-Nicotine patch
Full code
DVT prophylaxis�heparin
Regular diet
Total time spent to see the patient, examine the patient on the floor, review data and lab results, discuss treatment plan with patient, nursing staff around 59 minutes.
Anticipated Discharge: 24 - 48 hours
Subjective/Interval History
-
Date of Service: January 19, 2024
No chest pain
No sob
Less cough
Objective Data
-
Labs:
Laboratory Results
01/19/24
06:18
Sodium 134 L
Potassium 4.2
Chloride 109 H
Carbon Dioxide 22
BUN 20 H
Creatinine 0.9
Glucose 159 H
Calcium 8.5
Vital Signs:
Vital Signs
Temp Pulse Resp BP Pulse Ox
97.7 F 62 16 106/65 94
01/19/24 07:00 01/19/24 07:27 01/19/24 07:27 01/19/24 07:00 01/19/24 07:27
I&O
01/18/24 01/19/24 01/20/24
06:59 06:59 06:59
Intake Total 1330 / 1330 1800 / 1800 1010 / 1010
Balance 1330 / 1330 1800 / 1800 1010 / 1010
[2024-01-19 12:01] LABS: Glucose - Point of Care 165 mg/dl (70-99)
--- NOTE | 2024-01-19 13:02 | W.PN.UPDATE ---
Update Note
Progress Note Update
the patient came and wanted to talk to me to discharge the patient home today
I went up to see the patient and her . They would like to go home and not wait for breastfeeding educator. Explained reasoning to stay in addition to diabetic education, we can monitor blood sugar while using new medicine that was introduced
today, metformin. Patient expressed her wishes to go home and felt safe to do that. She reported that she was going to get an appointment with her primary care doctor tomorrow on Saturday as primary care office is usually accommodating to her.
Patient was given work note to be off work for 2 days which will help her follow-up with her primary care doctor. She was given instructions and prescription for glucometer. Home oxygen evaluation showed good oxygenation with no need for home
oxygen.
Discussed with nursing staff
Total discharge time spent to see the patient, examine the patient on the floor, review data and lab results, discuss discharge plan with patient, nursing staff around 65 minutes.
--- NOTE | 2024-01-19 13:10 | CM ---
CM reviewed chart, patient discharging home with , no needs. Home O2 evaluation completed, does not require home O2. CM will continue to follow for discharge planning needs.
Plan; home no needs.
[2024-01-19 13:34] VITALS: BP 110/75
--- NOTE | 2024-01-19 13:44 | W.DCSUMMARY ---
Discharge Summary
Discharge Data
Date of Admission: 01/16/24
Date of Discharge: 01/19/24
-
Pending Results: No
Hospital Course
53 years old female presented with cough and shortness of breath. Patient was found to have community-acquired pneumonia, with small parenchymal bilateral opacity seen on chest radiography. She had elevated white count. She did not have fevers.
Patient was evaluated by pulmonary doctor. Patient had history of tobacco use. She possibly had underlying chronic obstructive pulmonary disease/asthma exacerbation. Patient had mild hyponatremia without confusion. She had mild hyperkalemia and
was treated with Lokelma. Patient was started on intravenous antibiotic in addition to steroid therapy and nebulizer therapy. She had hypoxia but resolved. She started to improve with resolution of shortness of breath. Cough became less
prominent and she was able to sleep and eat well. Patient was found to have hyperglycemia. She had history of gestational diabetes. Hemoglobin A1c came back 7.7. Patient was treated with insulin sliding scale and was started on metformin
therapy. Patient expressed her wishes to avoid insulin therapy. Patient wanted to follow-up with her primary care doctor and did not want to stay further in the hospital to monitor blood glucose while on oral diabetic medication. Patient was
offered to to meet with clinical educator on Saturday. Patient wanted to go home. Pulmonary doctor recommended outpatient follow-up. Patient was advised to avoid to smoking. Home oxygen therapy revealed no need for oxygen. Patient was ambulating
independently without shortness of breath or dizziness. She remained hemodynamically stable. Patient was discharged in a stable condition. Patient was going to make appointment with her primary care doctor next day for further management of
diabetes and blood work.
Discharge Plan
-
Patient Disposition: Home (Routine Discharge)
Discharge Diagnosis/Procedures: Community-acquired pneumonia. You received intravenous antibiotics. Finish the course of antibiotic at home.
Suspected COPD/asthma with acute exacerbation. You are given an inhaler and prednisone to finish the course. Please follow with pulmonary doctor. Avoid tobacco use.
Antibiotic associated diarrhea
Hyponatremia, sodium at 134. Improved.
Hyperkalemia, resolved
Recent tooth extraction-treated with amoxicillin
Bhgelt-ojtrrcokvz-uzxgtnmttj 11.2
Hyperglycemia- Hemoglobin A1C 7.7 , you were started on Metformin. Please follow with your family doctor for further management.
Diet: As tolerated and Diabetic, Carb Controlled
Activity: No restrictions
Bathing Restrictions: None
Referrals:
Cassius Cruz DO [Family Provider] - in one day
Harlan Cerrato MD [Active] - in one to two weeks (Dr. Cerrato or [facility]-needs PFTs, smoking cessation counseling, home sleep study)
Prescriptions:
New
metformin 1,000 mg Tablet
1,000 mg PO BID@0800,1700 Qty: 60 0RF
guaifenesin 600 mg Tablet Extended Release 12hr
1,200 mg PO Q12 Qty: 8 0RF
nicotine 14 mg/24 hr Patch 24 Hour
14 mg transdermal DAILY Qty: 30 0RF
budesonide-formoterol [Symbicort] 160-4.5 mcg/actuation Hfa Aerosol Inhaler
2 puff inhalation R BID Qty: 10.2 0RF
cefdinir 300 mg capsule
300 mg PO BID Qty: 8 0RF
prednisone 20 mg tablet
20 mg PO DAILY Qty: 2 0RF
Continued
atorvastatin [Lipitor] 40 mg Tablet
40 mg PO DAILY
clonazepam 0.5 mg Tablet
0.5 mg PO HS
clonazepam 0.5 mg Tablet
0.5 mg PO DAILYPRN PRN (Reason: anxiety)
lisinopril 10 mg Tablet
10 mg PO DAILY
escitalopram oxalate [Lexapro] 20 mg Tablet
20 mg PO DAILY
Discontinued
amoxicillin 500 mg Capsule
500 mg PO TID
Patient Comments:
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
Discharge Orders:
Discharge Patient (As Directed); Ordered 01/19/24
Ordered By: Teodoro Mcwilliams
Discharge Date and Time
Discharge Date/Time: 01/19/24 13:42
Print Language: SOMALI
--- NOTE | 2024-01-21 11:32 | PTCARENOTE ---
Diabetes Education- Spoke with Chen this morning to offer diabetes education/glucometer instructions. She had her PCP appointment yesterday and has purchased an Accu-Chek Guide Me glucometer. Chen had hx of GDM and feels that she will be
able to self teach on this meter. Discussed testing pattern and expected results. Will send her information on outpt DSME classes for Jun. She is aware to call if she has trouble with the glucometer.
== END 2024-01-19 13:42 | disposition home or self-care (01) | DRG 193 ==
LOC: 4 WEST ACU 22:45
PROVIDERS: Physician Assistant Medical; ADMITTING PHYSICIAN Hospitalist; ATTENDING PHYSICIAN Internal Medicine; CONSULT PHYSICIAN Internal Medicine Critical Care Medicine; EMERGENCY PHYSICIAN Emergency Medicine; FAMILY PHYSICIAN Family Medicine Adult Medicine
DX: J18.9 Pneumonia, unspecified organism (principal); J96.01 Acute respiratory failure with hypoxia; K52.1 Toxic gastroenteritis and colitis; E87.1 Hypo-osmolality and hyponatremia; J44.0 Chronic obstructive pulmonary disease with (acute) lower respiratory infection; J45.901 Unspecified asthma with (acute) exacerbation; J44.1 Chronic obstructive pulmonary disease with (acute) exacerbation; I10 Essential (primary) hypertension; F41.9 Anxiety disorder, unspecified; F17.210 Nicotine dependence, cigarettes, uncomplicated; K04.7 Periapical abscess without sinus; E11.65 Type 2 diabetes mellitus with hyperglycemia; E87.5 Hyperkalemia; T36.95XA Adverse effect of unspecified systemic antibiotic, initial encounter; E78.5 Hyperlipidemia, unspecified; I87.2 Venous insufficiency (chronic) (peripheral); Z98.84 Bariatric surgery status; Z87.01 Personal history of pneumonia (recurrent); Z88.1 Allergy status to other antibiotic agents; Z11.52 Encounter for screening for COVID-19
CPT/HCPCS: 71046; 80048; 82962; 83036; 85025; 87502; 87811; 93005; 94640; 96374; 99285; 99406

== ENCOUNTER 2024-03-18 21:09 | Emergency (ER) | payer BC, SELFPAY ==
[2024-03-18 21:26] VITALS: BP 127/74
[2024-03-18 21:49] LABS: % Basophils 0.6 % (0-2); % Eosinophils 3.9 % (0-6); % Immature Granulocytes 0.3 % (0-0.5); % Lymphocytes 41.4 % (20.5-51.1); % Monocytes 7.8 % (1.7-9.3); Absolute Eosinophils 0.1 10^3/uL (0-0.7); Absolute Lymphocytes 1.4 10^3/uL (1.2-3.4); Absolute Monocytes 0.3 10^3/uL (0.1-0.6); Absolute Neutrophils 1.5 10^3/uL (1.4-6.5); Hematocrit 34.1 % (37.0-47.0); Hemoglobin 11.4 g/dL (12.0-16.0); Mean Corp Hgb Conc. 33.4 g/dL (33.0-37.0); Mean Corpuscular Hgb 27.5 pg (27.0-31.0); Mean Corpuscular Volume 82.2 fL (81.0-99.0); Mean Platelet Volume 10.7 fL (7.4-10.4); Nucleated Red Blood Cells % 0 %; Platelet Count 140 10^3/uL (130-400); Red Blood Cell Count 4.15 10^6/uL (4.20-5.40); White Blood Cell Count 3.3 10^3/uL (4.8-10.8)
[2024-03-18 21:58] LABS: Lactic Acid 1.3 mmol/L (0.7-2.0)
[2024-03-18 21:59] LABS: ALT (SGPT) 42 U/L (0-35); AST (SGOT) 46 U/L (14-36); Albumin 3.7 g/dl (3.5-5.0); Alkaline Phosphatase 109 U/L (38-126); Blood Urea Nitrogen 15 mg/dl (7-17); Calcium 8.5 mg/dl (8.4-10.2); Carbon Dioxide 25 mmol/L (22-30); Chloride 100 mmol/L (98-107); Glucose 142 mg/dl (70-99); Lipase 47 U/L (23-300); Potassium 4.4 mmol/L (3.5-5.1); Sodium 132 mmol/L (135-145); Total Bilirubin 0.4 mg/dl (0.2-1.3); Total Protein 6.2 g/dl (6.3-8.2); eGFR 59.34
[2024-03-18] MEDS: OMNIPAQUE 50 ML PO (23:09)
--- NOTE | 2024-03-18 23:12 | ED.GENMED ---
History of Present Illness
General
Chief Complaint: Abdominal Symptoms
Source: patient and family
Exam Limitations: none
Time Seen by Provider: 03/18/24 22:54
Travel History
Have you had any contact with someone who has COVID-19?: No
Do you have any symptoms of coronavirus? Fever > 100 degrees, chills, cough, shortness of breath, sore throat, loss of taste or smell, muscle aches, or headache?: No
History of Present Illness
History of Present Illness:
54-year-old female started with nausea and vomiting recently. Then developed abdominal bloating and distention. Some vague abdominal comfort. No back pain no fever. Very irregular bowel movements but this is not unusual. No urinary symptoms.
Symptoms are mild to moderate in nature.
Past History
Past History
ED Past Medical History: HTN and Other (chronic abdominal pain; pancreatitis, )
ED Past Surgical History: Cholecystectomy, Gynecological and Other (gastric bypass, hernia)
Social History
Tobacco: Non-smoker
Alcohol: None
Drug: None
Personal:
Living: with family
Phy Exam
Physical Exam
Physical Exam:
GENERAL: Alert and oriented in no apparent distress
EYE: Orbits normal.
NECK: Supple
CARDIAC: Regular rate and rhythm without any obvious murmurs.
LUNGS: Clear breath sounds,normal
ABDOMEN: Distended. Bowel sounds present but slightly hypoactive. Mildly tympanitic. No point tenderness no rebound or guarding no mass or hernia.
NEUROLOGICAL: Alert and oriented , grossly non-focal
SKIN: Warm and dry, no rash or lesion, no discoloration, skin intact.
MUSCULOSKELETAL: Chronic appearing lower extremity edema
PSYCH: Normal and appropriate interaction.
Course
Orders/Labs/Results
Orders:
Orders
03/18/24 21:37
Complete Blood Count/With Diff Urgent
Comprehensive Metabolic Panel Urgent
Lactic Acid Urgent
Lipase Urgent
03/18/24 23:04
Iohexol [Omnipaque] See Protocol PO NOW STA
03/18/24 23:05
0.9% Sodium Chloride 500 ml [Nss] 500 ml IV BOLUS
03/19/24 01:00
CT Abd/pel W Iv And Oral Contr Urgent
Reason For Exam: Pain/distention/gastric bypass
03/19/24 02:14
EKG [Electrocardiogram (*1)] Urgent
Reason for Study: Abdominal Pain
03/19/24 02:15
EKG- Treatment ONCE
0.9% Sodium Chloride 1000 ml [Nss] 1,000 ml IV BOLUS
03/19/24 02:20
Urinalysis Reflex To Culture Urgent
Date Specimen was Collected: 03/19/24
Time Specimen was Collected: 02:19
03/19/24 02:31
Add On- LAB Urgent
Comments:: tsh refles t4
Tests Added?: tsh reflex t4
Abnormal Lab Results
03/18/24
21:37
WBC 3.3 L 10^3/uL
(4.8-10.8)
RBC 4.15 L 10^6/uL
(4.20-5.40)
Hgb 11.4 L g/dL
(12.0-16.0)
Hct 34.1 L %
(37.0-47.0)
RDW 16.0 H %
(11.5-14.5)
MPV 10.7 H fL
(7.4-10.4)
Sodium 132 L mmol/L
(135-145)
Creatinine 1.1 H mg/dL
(0.6-1.0)
Glucose 142 H mg/dl
(70-99)
AST 46 H U/L
(14-36)
ALT 42 H U/L
(0-35)
Total Protein 6.2 L g/dl
(6.3-8.2)
03/18/24 21:37
03/18/24 21:37
Vital Signs
Initial and Last Documented VS:
Initial Vital Signs
Temp Pulse Resp BP Pulse Ox
98.3 F 78 18 127/74 98
03/18/24 21:26 03/18/24 21:26 03/18/24 21:26 03/18/24 21:26 03/18/24 21:26
Last Documented Vital Signs
Temp Pulse Resp BP Pulse Ox
98.3 F 78 18 116/58 96
03/18/24 21:26 03/18/24 21:26 03/18/24 21:26 03/19/24 02:33 03/19/24 02:33
MDM/Problems Addressed
Differential Diagnosis Includes:
Differential would include enteritis/partial SBO. Doubt full SBO. Internal hernia. Sigmoid volvulus. Labs are stable. CT scan pending.
*Radiology
Radiology exam reviewed: radiology read reviewed (No acute findings thank you yeah just polyp.)
*Pulse Oximetry
Patient hypoxic: no
*EKG
Interpreted by ED Provider?: Yes
Interpretation: normal
Comparison EKG: no changes
Heart Rate: 78
Rate: normal
Rhythm: sinus
Independence: normal axis
Interval: long QT
QRS Pattern: normal QRS
Ischemia: non-specific ST changes
Data Reviewed
Review of Other/Old Records Reveals: Labs, Testing and Discharge Summary
Update Note
Update Note:
0210.... Patient CT is unremarkable. She has a slightly low white count but have a relatively normal differential. Mild elevation in LFTs. Would be most consistent with a viral syndrome. She has a nonsurgical abdomen. Her blood pressure is
reading low on the monitor however manual blood pressure was 110/70. We will give her another liter of fluids send her urinalysis for completeness and get an EKG although clinically very low suspicion for cardiac. She clearly is describing
abdominal symptoms. If all this is stable I see no indication for admission and patient is comfortable with light diet and close follow-up with her primary care
ED Attending Note
-
Portions of this chart may have been created with voice recognition software.� Occasional wrong word or��sound alike� substitutions may have occurred due to the inherent limitations of voice recognition software.
Discharge Plan
Departure
Patient with high blood pressure during this ER visit?: No
Discharge Problem:
Abdominal pain/distention, Mildly long QT interval
Instructions: Abdominal Pain
Prescriptions:
No Action
atorvastatin [Lipitor] 40 mg Tablet
40 mg PO DAILY
clonazepam 0.5 mg Tablet
0.5 mg PO HS
clonazepam 0.5 mg Tablet
0.5 mg PO DAILYPRN PRN (Reason: anxiety)
lisinopril 10 mg Tablet
10 mg PO DAILY
escitalopram oxalate [Lexapro] 20 mg Tablet
20 mg PO DAILY
metformin 1,000 mg Tablet
1,000 mg PO BID@0800,1700 Qty: 60 0RF
guaifenesin 600 mg Tablet Extended Release 12hr
1,200 mg PO Q12 Qty: 8 0RF
nicotine 14 mg/24 hr Patch 24 Hour
14 mg transdermal DAILY Qty: 30 0RF
budesonide-formoterol [Symbicort] 160-4.5 mcg/actuation Hfa Aerosol Inhaler
2 puff inhalation R BID Qty: 10.2 0RF
cefdinir 300 mg capsule
300 mg PO BID Qty: 8 0RF
prednisone 20 mg tablet
20 mg PO DAILY Qty: 2 0RF
Referrals:
Cassius Cruz DO [Family Provider] - Follow up in 2-3 days
Activity Restrictions/Additional Instructions:
Your QT interval under EKG is minimally lengthened. This would have nothing to do with your abdominal symptoms. However if you are started on medications you should mention that this interval is minimally elevated.
Return sooner with worsening symptoms including progressive distention abdominal pain vomiting fever or any other concerning symptoms
Interventions
Interventions:
*Risk Screen - Suicide Last Done: 03/18/24 21:26
*General Assessment Last Done: 03/18/24 21:26
*Neglect/Abuse Screening Last Done: 03/18/24 21:26
ED- Fall Risk Assessment Last Done: 03/18/24 23:13
*ED COVID-19 Vaccine History Last Done: 03/18/24 23:13
FA-Xwmmut-Qballpucca Assessment Last Done: 03/18/24 23:13
Discharge Date and Time
Print Language: HUNGARIAN
[2024-03-18 23:13] VITALS: BMI 42.3
[2024-03-18 23:19] VITALS: BP 105/68
[2024-03-18] MEDS: NSS 500 IV (23:31)
[2024-03-19] VITALS: BP 94/61
[2024-03-19 02:06] VITALS: BP 95/74
[2024-03-19] MEDS: NSS 1000 IV (02:24)
[2024-03-19 02:33] VITALS: BP 116/58
[2024-03-19 02:33] LABS: Urine Albumin Negative (Neg - Trace); Urine Bilirubin Negative (Negative); Urine Character Clear (Clear); Urine Color Yellow; Urine Glucose Negative (Negative); Urine Ketone Negative (Negative); Urine Leukocyte Negative (Negative); Urine Nitrite Negative (Negative); Urine Occult Blood Negative (Negative); Urine Urobilinogen Negative (Neg - 1+)
[2024-03-19 03:07] VITALS: BP 126/71
[2024-03-19 04:00] VITALS: BP 133/73
[2024-03-19 04:12] LABS: TSH Reflex To Free T4 2.22 uIU/ml (0.47-4.68)
[2024-03-19 04:21] VITALS: BP 128/81
== END 2024-03-19 04:31 | disposition home or self-care (01) ==
LOC: EMR 21:09
PROVIDERS: EMERGENCY PHYSICIAN Emergency Medicine; FAMILY PHYSICIAN Family Medicine Adult Medicine
DX: R10.9 Unspecified abdominal pain (principal); R14.0 Abdominal distension (gaseous); I45.81 Long QT syndrome; I10 Essential (primary) hypertension; Z98.84 Bariatric surgery status
CPT/HCPCS: 99284; 96360; 74177; 80053; 81003; 83605; 83690; 84443; 85025; 93005; Q9967

== ENCOUNTER 2025-01-16 16:21 | Emergency (ER) | payer BC, SELFPAY ==
[2025-01-16 16:27] VITALS: BP 132/82
[2025-01-16 16:50] LABS: Hematocrit 34.4 % (37.0-47.0); Mean Corp Hgb Conc. 34.9 g/dL (33.0-37.0); Mean Corpuscular Hgb 28.9 pg (27.0-31.0); Mean Corpuscular Volume 82.9 fL (81.0-99.0); Mean Platelet Volume 10.6 fL (7.4-10.4); Platelet Count 197 10^3/uL (130-400); Red Blood Cell Count 4.15 10^6/uL (4.20-5.40); Red Cell Dist. Width 14.6 % (11.5-14.5); White Blood Cell Count 6.2 10^3/uL (4.8-10.8)
[2025-01-16 16:57] LABS: ALT (SGPT) 17 U/L (0-35); AST (SGOT) 21 U/L (14-36); Albumin 3.2 g/dl (3.5-5.0); Alkaline Phosphatase 131 U/L (38-126); Blood Urea Nitrogen 10 mg/dl (7-17); Carbon Dioxide 25 mmol/L (22-30); Chloride 103 mmol/L (98-107); Glucose 95 mg/dl (70-99); Potassium 2.9 mmol/L (3.5-5.1); Sodium 135 mmol/L (135-145); Total Protein 5.6 g/dl (6.3-8.2); eGFR 44.43
[2025-01-16 17:27] LABS: % Basophils 0.6 % (0-2); % Eosinophils 1.1 % (0-6); % Immature Granulocytes 0.3 % (0-0.5); % Lymphocytes 30.9 % (20.5-51.1); % Monocytes 3.7 % (1.7-9.3); % Neutrophils 63.4 % (42.2-75.2); Absolute Eosinophils 0.1 10^3/uL (0-0.7); Absolute Lymphocytes 1.9 10^3/uL (1.2-3.4); Absolute Monocytes 0.2 10^3/uL (0.1-0.6); Nucleated Red Blood Cells % 0 %
[2025-01-16 20:18] VITALS: BP 119/76
[2025-01-16 20:21] VITALS: BMI 29.6
--- NOTE | 2025-01-16 20:27 | EDRN ---
Pt complains of 'extreme' nausea and says she cannot eat 'any time I put something in my mouth, including medications, I throw it up. There's a lot of dry heaving going on.' Pt has not eaten in a 'long time.' says it has been about 2
months, pt says it has not been that long. Pt denies cp, sob, abd pain, fever/chills/cough, urinary symptoms, dizziness, weakness. Pt notes her potassium level has been low recently. Pt adds when mounjaro was increased to 10mg her symptoms
started so she called her doctor and it was decreased to 7.5mg.
--- NOTE | 2025-01-16 20:28 | ED.GENMED ---
History of Present Illness
General
Chief Complaint: Abdominal Symptoms
Source: patient and spouse
Exam Limitations: none
Time Seen by Provider: 01/16/25 20:19
Nursing documentation reviewed up to this point in time: agreed with
History of Present Illness
History of Present Illness:
54-year-old female presents with nausea decreased p.o. intake 100 pound weight loss status post gastric bypass in 2003 she takes Mounjaro, atorvastatin, Lexapro,
Send her gallbladder out, she believes that her symptoms started after oral surgery she started losing her teeth for 5 months ago, she sips on soda, her dose of Mounjaro has been decreased recently from 10-7.5 denies any abdominal pain, she had
outpatient blood work showed potassium was low
Past History
Past History
ED Past Medical History: HTN and Other (chronic abdominal pain; pancreatitis, )
ED Past Surgical History: Cholecystectomy, Gynecological and Other (gastric bypass, hernia)
Social History
Tobacco: Non-smoker
Alcohol: None
Drug: None
Personal:
Living: with family
Review of Systems
Review of Systems
All Other Systems: Not applicable
Constitutional: Reports fatigue; Denies fever
EENT: Reports no symptoms
Respiratory: Reports no symptoms
ABD/GI: Reports nausea; Denies abdominal pain, diarrhea or black stools
: Reports no symptoms
Musculoskeletal: Reports no symptoms
Skin: Reports no symptoms
Neurological: Reports weakness
Phy Exam
Physical Exam
Physical Exam:
Physical Exam
General: 54 female somewhat chronically ill-appearing
Neck: Dry lips
Heart: s1/s2 regular rate and rhythm, no murmur. equal radial pulses.
Lungs: no acute respiratory distress. clear bilaterally
Abdomen: Nontender
Neuro: alert and oriented. no focal neurological deficits
Skin: no rash
Psychiatric: well kept. interactive and cooperative
Extremities: no edema.
Course
Orders/Labs/Results
Orders:
Orders
01/16/25 16:33
Complete Blood Count/With Diff Urgent
Comprehensive Metabolic Panel Urgent
Lipase Urgent
Comment: ADD ON
Magnesium Urgent
Comment: ADD ON
01/16/25 20:19
Add On- LAB Urgent
Tests Added?: MAGNESIUM
01/16/25 20:26
Pantoprazole [Protonix IV] 40 mg IV NOW STA
Potassium Chloride 10% Elixir [KCl Elixir] 40 meq PO NOW STA
01/16/25 20:27
Electrocardiogram (*1) Urgent
Reason for Study: QTc Monitoring
01/16/25 20:28
EKG- Treatment ONCE
01/16/25 20:31
Add On- LAB Urgent
Tests Added?: Lipase
01/16/25 20:53
Promethazine [Phenergan] 25 mg 0.9% Sodium Chloride 50 ml [Nss] 50 ml IV NOW
01/16/25 22:41
0.9% Sodium Chloride 1000 ml [Nss] 1,000 ml IV BOLUS
Potassium Chloride [KCl] 40 meq PO NOW STA
Abnormal Lab Results
01/16/25
16:33
RBC 4.15 L 10^6/uL
(4.20-5.40)
Hct 34.4 L %
(37.0-47.0)
RDW 14.6 H %
(11.5-14.5)
MPV 10.6 H fL
(7.4-10.4)
Potassium 2.9 L mmol/L
(3.5-5.1)
Creatinine 1.4 H mg/dL
(0.6-1.0)
Alkaline Phosphatase 131 H U/L
(38-126)
Total Protein 5.6 L g/dl
(6.3-8.2)
Albumin 3.2 L g/dl
(3.5-5.0)
01/16/25 16:33
01/16/25 16:33
Vital Signs
Initial and Last Documented VS:
Initial Vital Signs
Temp Pulse Resp BP Pulse Ox
98.2 F 68 16 132/82 95
01/16/25 16:27 01/16/25 16:27 01/16/25 16:27 01/16/25 16:27 01/16/25 16:27
Last Documented Vital Signs
Temp Pulse Resp BP Pulse Ox
97.4 F 67 16 113/72 95
01/16/25 20:21 01/17/25 00:00 01/17/25 00:00 01/17/25 00:00 01/16/25 16:27
MDM/Problems Addressed
Differential Diagnosis Includes:
Gastritis, duodenitis, medication effect psychiatric affect, other
MDM/Problems Addressed:
Weight loss nausea
Chronic conditions affecting care: Previous abdomnial surgery
Acute Exacerbation and/or Progression of Chronic Illness: Previous abdomnial surgery
*Pulse Oximetry
Patient hypoxic: no
*EKG
Interpreted by ED Provider?: Yes
Interpretation: normal
Comparison EKG: no comparison EKG present
Heart Rate: 78
Rate: normal
Rhythm: sinus
Ischemia: no ischemia
*Extruder Operator Helper Interpretation
Rate: normal
Interpretation: normal
Heart Rate: 78
Rhythm: sinus
*Critical Care Note
Total Time (30-74mins, 75-104mins- exclusive of procedures): Not Applicable
Update Note
Update Note:
Update prior records briefly reviewed prior labs noted K is down creatinine is up will check magnesium started on saline antiemetics PPI
Update 10:10 PM patient apparently refused potassium here EKG noted, downsloping T wave inversions, in the setting of hypokalemia borderline hypomagnesemia
Update patient feeling better after Phenergan, and she will now take her p.o. potassium pill as opposed to liquid
Will give her a liter saline
ED Attending Note
-
Portions of this chart may have been created with voice recognition software.� Occasional wrong word or��sound alike� substitutions may have occurred due to the inherent limitations of voice recognition software.
Discharge Plan
Departure
Patient Disposition: Home (Routine Discharge)
Date of Disposition: 01/16/25
Time of Disposition: 22:47
Patient with high blood pressure during this ER visit?: No
Condition: Good
Covid-19: Not Applicable
Discharge Problem:
Dehydration
Instructions: Hypokalemia, Dehydration, Adult (DC), Nausea and Vomiting, Adult (DC)
Prescriptions:
New
promethazine 25 mg tablet
25 mg PO QID PRN (Reason: nausea and vomiting) Qty: 10 0RF
potassium chloride 20 mEq tablet extended release
20 meq PO BID Qty: 14 0RF
No Action
clonazepam 0.5 mg Tablet
0.5 mg PO BIDPRN PRN (Reason: anxiety)
escitalopram oxalate [Lexapro] 20 mg Tablet
20 mg PO DAILY
atorvastatin 20 mg Tablet
20 mg PO DAILY
Linzess 72 mcg Capsule
72 mcg PO DAILY
Mounjaro 7.5 mg/0.5 mL Pen Injector
7.5 mg SC BLAKELY
Referrals:
UNKNOWN - PT NOT,INTERVIEWE [Unknown Provider] -
Interventions
Interventions:
*Risk Screen - Suicide Last Done: 01/16/25 16:30
*General Assessment Last Done: 01/16/25 20:21
*Neglect/Abuse Screening Last Done: 01/16/25 16:30
*ED- Fall Risk Assessment Last Done: 01/16/25 22:58
*ED COVID-19 Vaccine History Last Done: 01/16/25 20:21
*Nursing Disposition Last Done: 01/17/25 00:55
ME-Synblb-Xxxzdjisin Assessment Last Done: 01/16/25 20:21
Discharge Date and Time
Discharge Date/Time: 01/17/25 00:55
Print Language: VIETNAMESE
[2025-01-16 20:52] LABS: Lipase 26 U/L (23-300); Magnesium 1.8 mg/dl (1.6-2.3)
--- NOTE | 2025-01-16 20:52 | EDRN ---
Called pharmacy for phenergan
--- NOTE | 2025-01-16 21:04 | EDRN ---
Pt given crackers to eat with potassium drink but she states she cannot eat anything because she does not have her teeth in. This RN attempted iv access x 2 without success.
--- NOTE | 2025-01-16 21:17 | EDRN ---
Charge nurse, Morales Avelar RN attempted iv insertion without success - VAT at bedside
[2025-01-16] MEDS: PROTONIX IV 40 MG IV (21:28)
[2025-01-16] MEDS: PHENERGAN 51 MG IV (21:30)
--- NOTE | 2025-01-16 21:35 | EDRN ---
Pt was given PO potassium and offered crackers. When Kary from [facility] came out of pt room after IV insertion, she said pt will not drink the PO potassium. Pt told this RN she will not drink it because she cannot. Dr Huff informed.
[2025-01-16 22:00] VITALS: BP 125/63
[2025-01-16] MEDS: KCL 40 MEQ PO (22:50)
[2025-01-16] MEDS: NSS 1000 IV (22:50)
[2025-01-16 23:00] VITALS: BP 131/81
[2025-01-17] VITALS: BP 113/72
--- NOTE | 2025-01-17 00:44 | EDRN ---
Pt unable to determine if her nausea is gone/better or if she feels better after ivf because she says she will not know the answer until she moves around. Pt does not have nausea while sitting on stretcher.
== END 2025-01-17 00:55 | disposition home or self-care (01) ==
LOC: EMR 16:21
PROVIDERS: EMERGENCY PHYSICIAN Emergency Medicine; FAMILY PHYSICIAN Family Medicine Adult Medicine
DX: E86.0 Dehydration (principal); E83.42 Hypomagnesemia; E87.6 Hypokalemia; I10 Essential (primary) hypertension; Z98.84 Bariatric surgery status; Z79.899 Other long term (current) drug therapy
CPT/HCPCS: 96365; 96375; 96361; 99284; 80053; 83690; 83735; 85025; 93005

== ENCOUNTER 2025-05-02 00:08 | Inpatient (IN) | payer BC, SELFPAY ==
[2025-05-01 17:09] VITALS: BP 112/66
[2025-05-01 17:52] LABS: Hematocrit 33.2 % (37.0-47.0); Hemoglobin 11.7 g/dL (12.0-16.0); Mean Corp Hgb Conc. 35.2 g/dL (33.0-37.0); Mean Corpuscular Volume 85.1 fL (81.0-99.0); Nucleated Red Blood Cells % 0 %; Platelet Count 392 10^3/uL (130-400); Red Cell Dist. Width 16.1 % (11.5-14.5)
[2025-05-01 18:01] LABS: ALT (SGPT) 34 U/L (0-35); AST (SGOT) 28 U/L (14-36); Albumin 2.6 g/dl (3.5-5.0); Alkaline Phosphatase 156 U/L (38-126); Blood Urea Nitrogen 30 mg/dl (7-17); Calcium 8.1 mg/dl (8.4-10.2); Carbon Dioxide 37 mmol/L (22-30); Chloride 86 mmol/L (98-107); Glucose 97 mg/dl (70-99); Lipase 14 U/L (23-300); Potassium 2.8 mmol/L (3.5-5.1); Sodium 126 mmol/L (135-145); Total Protein 5.5 g/dl (6.3-8.2); eGFR 34.98
[2025-05-01 20:07] LABS: Magnesium 1.9 mg/dl (1.6-2.3)
[2025-05-01 21:05] LABS: TSH 2.39 uIU/ml (0.47-4.68)
[2025-05-01 21:40] LABS: Folate 3.9 ng/ml (2.76-20); Vitamin B12 888 pg/ml (239-931)
[2025-05-01] MEDS: KCL 270 MEQ IV (21:45)
[2025-05-01] MEDS: NSS 1000 IV (21:45)
--- NOTE | 2025-05-01 22:13 | ED.GENMED ---
History of Present Illness
General
Chief Complaint: Failure to Thrive
Source: patient and spouse
Time Seen by Provider: 05/01/25 19:23
History of Present Illness
History of Present Illness:
Note:
CHIEF COMPLAINT(S)
Significant and unexplained weight loss, weakness, difficulty walking, and inability to eat.
HISTORY OF PRESENT ILLNESS
The patient is a 55-year-old female presenting with significant and unexplained weight loss of approximately 150 pounds over less than a year. This weight loss has been accompanied by an inability to eat, weakness, impaired balance, and difficulty
walking, to the extent that the patient cannot climb stairs or comfortably get in and out of a car. The patient has experienced poor concentration and mental capacity, reporting difficulty forming cohesive thoughts. She mentions attempting to
consume nutritional shakes (Ensure) over the past two weeks without improvement. The patient sees a Primary Care Provider (PCP) who had previously halted her Monjaro (tirzepatide) treatment, as the weight loss had become excessively rapid. Since
stopping Monjaro, weight loss continued at an alarming rate. The patient reports extensive dental issues leading to her edentulous state over the past year and a half. She also reports nausea, vomiting, and swallowing difficulties contributing to
her inability to eat, live on her couch due to exhaustion, and poor sleep. She has previously undergone gastric bypass surgery several years ago, leading to past weight loss, but never as severe as the current episode. Medications were adjusted by
her PCP, but improvement was not noted. Recent lab work showed kidney function aberrations and low potassium levels. It is noted that the patient has experienced peripheral edema, which was discussed with her cast associate who reported normal blood
pressure and cardiac status.
ADDITIONAL HISTORY OBTAINED FROM SOURCES OTHER THAN THE PATIENT
Her spouse provided additional information regarding her poor appetite, lack of eating despite knowing the need to consume food, and significant decline in ability to function leading to her inability to work or drive.
CHRONIC MEDICAL CONDITIONS SIGNIFICANTLY AFFECTING CARE
Includes a history of gastric bypass surgery.
SOCIAL HISTORY
The patient ceased the use of opioids such as Percocet with the assistance of a treatment program where she underwent treatment with Suboxone (buprenorphine) and Sublocade (buprenorphine injection) one year ago. She has not resumed opioid use
outside of a brief postoperative course after dental procedures.
MEDICATIONS
- Losartan 25 mg
- Hydroxyzine 20 mg
- Omeprazole (for gastric protection post-bypass surgery)
- Monjaro (tirzepatide) is discontinued approximately eight months to a year ago.
REVIEW OF SYSTEMS
- General: Severe unexplained weight loss.
- Neurological: Difficulty with concentration, mental capacity, and motor function.
- Musculoskeletal: Impaired balance, weakness, difficulty in ambulation.
- Gastrointestinal: Nausea, vomiting, dysphagia.
- Psychiatric: Poor appetite, inability to initiate eating despite hunger awareness.
- Nutritional: Details appetite issues and nutritional deficits highlighted by poor intake.
PHYSICAL EXAM
General: Cachectic appearance observed.
CONSTITUTIONAL Patient alert and oriented to person, place and time. Well-appearing. Vital signs reviewed.
HEAD atraumatic, normocephalic.
EYES eyelids normal to inspection, Extraocular muscles intact, Conjunctiva normal, Sclera normal.
NECK normal range of motion, Trachea midline, no jugular venous distention.
RESPIRATORY CHEST No respiratory distress noted, Chest expansion equal, Bilateral breath sounds clear.
CARDIOVASCULAR regular rate and rhythm, Heart sounds normal.
ABDOMEN abdomen nontender, Bowel sounds normal. No distention.
BACK normal inspection, no obvious deformities
UPPER EXTREMITY range of motion normal, Motor strength normal, no cyanosis, no edema.
LOWER EXTREMITY range of motion normal, Motor strength normal, no cyanosis, bilateral edema noted.
NEURO Speech normal, No focal motor deficits, [place] coma scale 15, Memory normal, Cranial Nerves intact to screening exam.
SKIN skin warm, dry, and normal in color.
PROBLEM LIST
Acute Problems:
- Unexplained significant weight loss
- Severe weakness and motor impairment
- Inability to sustain adequate nutritional intake
- Electrolyte imbalances (low potassium)
PLAN
1. Hospital admission for overnight observation to correct electrolyte imbalances, including potassium levels, which are critically low.
2. Administer IV fluids to address dehydration and replenishment of essential electrolytes.
3. Conduct further laboratory tests including vitamin levels and electrolyte panels to ascertain deficiencies.
4. Obtain a urine sample to assess for proteins and further investigate potential renal dysfunction.
5. Consider EKG due to low potassium levels impacting cardiac function.
6. Monitor and manage symptoms with a multifaceted approach, allowing for evaluation by GI if gastritis or other anatomical concerns persist. Plan for potential endoscopy pending stabilization.
DIFFERENTIAL DIAGNOSIS
The Differential Diagnosis includes, in no particular order and is not limited to:
1. Malabsorption syndrome
2. Hyperthyroidism
3. Chronic gastrointestinal disease or post-surgical complications
4. Eating disorder or severe nutritional deficiency
5. Depression leading to anorexia
6. Chronic kidney disease
7. Occult malignancy
8. Severe anemia
9. Medication side effects, notably from prior Monjaro use
10. Neurological disorder impacting feeding and balance
Disposition:
SUMMARY OF ENCOUNTER
The patient, a 55-year-old female with a history including gastric bypass surgery and past treatment with tirzepatide, presented with significant and progressive weight loss. She was found to have critical electrolyte imbalances including
hypokalemia, with a potassium level leading to a prolonged QT interval on EKG. Additionally, an acute kidney injury was noted with a creatinine level of 1.7. Other lab results indicated low sodium at 126, low chloride at 86, mild alkalosis with
bicarbonate at 37, and hypoalbuminemia with albumin at 2.6. A chest x-ray independently interpreted showed patchy opacity on the left, but the patient was afebrile with no respiratory symptoms. Given her smoking history and weight loss, further
evaluation is considered necessary. Antibiotics were withheld pending further assessment, and QT-prolonging medications were avoided.
PLAN
The plan includes correcting the hypokalemia and monitoring electrolyte levels closely. Consideration for further workup of the chest x-ray findings is noted. Medications that could prolong the QT interval are to be held, and potassium levels
addressed immediately.
INDEPENDENT REVIEW OF LABS AND INTERPRETATION OF TESTS
My independent review of EKG shows normal sinus rhythm with non-specific ST and T-wave changes and a QTC of 644.
My independent review of the BMP reveals acute kidney injury with a creatinine of 1.7, hypokalemia (value not specifically mentioned in transcripts), low sodium at 126, and low chloride at 86.
My independent review of the CBC indicates mild anemia with hemoglobin at 11.7.
My independent chest x-ray interpretation shows patchy opacity on the left side.
MEDICAL DECISION MAKING
-Complexity of Data Reviewed: Chronic conditions affecting care including history of gastric bypass surgery and previous treatment with tirzepatide. Differential diagnosis includes malabsorption syndrome, hyperthyroidism, chronic gastrointestinal
disease or post-surgical complications, eating disorder or severe nutritional deficiency, depression leading to anorexia, chronic kidney disease, occult malignancy, severe anemia, medication side effects, and neurological disorder.
-Data:
Category 1
Non-emergency department records reviewed, revealing a prior potassium of 2.9 and creatinine of 1.4 from three months ago.
Clinical information was obtained from an independent historian (spouse provided additional information regarding poor appetite and functionality).
Category 2
My independent interpretation of chest x-ray shows patchy opacity on the left.
EKG shows normal sinus rhythm with non-specific ST and T-wave changes, with a QTC of 644.
-Risk:
Care is significantly affected by social determinants due to the patients history of opioid cessation with buprenorphine treatment and significant difficulty with nutritional intake and daily functioning.
DIAGNOSIS
1. Acute kidney injury (ICD-10: N17.9)
2. Hypokalemia (ICD-10: E87.6)
3. Unexplained weight loss (ICD-10: R63.4)
4. Hypoalbuminemia (ICD-10: E88.09)
5. Anemia, unspecified (ICD-10: D64.9)
Past History
Past History
ED Past Medical History: HTN and Other (chronic abdominal pain; pancreatitis, )
ED Past Surgical History: Cholecystectomy, Gynecological and Other (gastric bypass, hernia)
Social History
Tobacco: Non-smoker
Alcohol: None
Drug: None
Personal:
Living: with family
Phy Exam
Physical Exam
Physical Exam:
.
Course
Orders/Labs/Results
Orders:
Orders
05/01/25 17:26
Complete Blood Count/With Diff Urgent
Comprehensive Metabolic Panel Urgent
Folate Urgent
Comment: ADD ON
Lipase Urgent
Magnesium Urgent
Comment: ADD ON
Phosphorus Urgent
Comment: ADD ON
TSH Urgent
Comment: ADD ON
Vitamin B12 Urgent
Comment: ADD ON
05/01/25 19:26
Add On- LAB Urgent
Tests Added?: magnesium
05/01/25 20:18
Add On- LAB Urgent
Tests Added?: B12, Folate, TSH
Urinalysis Reflex To Culture Urgent
Urine Drug Abuse Screen Urgent
05/01/25 20:19
Electrocardiogram (*1) Urgent
Reason for Study: QTc Monitoring
EKG- Treatment ONCE
05/01/25 21:00
Add On- LAB Urgent
Tests Added?: phos
0.9% Sodium Chloride 1000 ml [Nss] 1,000 ml IV BOLUS
Potassium Chloride [KCl] 40 meq 0.9% Sodium Chloride 250 ml [Nss] 250 ml IV NOW
05/01/25 21:03
CR Chest - 2 Views Urgent
Comment:
Reason For Exam: weakness
05/01/25 21:11
Potassium Chloride [KCl] 40 meq 0.9% Sodium Chloride 250 ml [Nss] 250 ml IV NOW
Abnormal Lab Results
05/01/25
17:26
RBC 3.90 L 10^6/uL
(4.20-5.40)
Hgb 11.7 L g/dL
(12.0-16.0)
Hct 33.2 L %
(37.0-47.0)
RDW 16.1 H %
(11.5-14.5)
Abs Immat Gran (auto) 0.1 H 10^3/uL
(0-0.05)
Absolute Neuts (auto) 8.8 H 10^3/uL
(1.4-6.5)
Immature Gran % 0.6 H %
(0-0.5)
Neutrophils % 81.3 H %
(42.2-75.2)
Lymphocytes % 13.5 L %
(20.5-51.1)
Sodium 126 L mmol/L
(135-145)
Potassium 2.8 L mmol/L
(3.5-5.1)
Chloride 86 L mmol/L
(98-107)
Carbon Dioxide 37 H mmol/L
(22-30)
BUN 30 H mg/dl
(7-17)
Creatinine 1.7 H mg/dL
(0.6-1.0)
Calcium 8.1 L mg/dl
(8.4-10.2)
Total Bilirubin 2.3 H mg/dl
(0.2-1.3)
Alkaline Phosphatase 156 H U/L
(38-126)
Total Protein 5.5 L g/dl
(6.3-8.2)
Albumin 2.6 L g/dl
(3.5-5.0)
Lipase 14 L U/L
(23-300)
05/01/25 17:26
05/01/25 17:26
Vital Signs
Initial and Last Documented VS:
Initial Vital Signs
Temp Pulse Resp BP Pulse Ox
98.5 F 84 16 112/66 98
05/01/25 17:09 05/01/25 17:09 05/01/25 17:09 05/01/25 17:09 05/01/25 17:09
Last Documented Vital Signs
Temp Pulse Resp BP Pulse Ox
98.5 F 84 16 112/66 98
05/01/25 17:09 05/01/25 17:09 05/01/25 17:09 05/01/25 17:09 05/01/25 17:09
*Pulse Oximetry
SaO2: 98
Oxygen Mode of Delivery: Room air
Patient hypoxic: no
*Critical Care Note
Total Time (30-74mins, 75-104mins- exclusive of procedures): Not Applicable
ED Attending Note
-
Portions of this chart may have been created with voice recognition software.� Occasional wrong word or��sound alike� substitutions may have occurred due to the inherent limitations of voice recognition software.
Discharge Plan
Departure
Patient Disposition: Admit
Date of Disposition: 05/01/25
Time of Disposition: 22:16
Admit to: Telemetry
Presentation/result/management discussed w/ accepting MD/DO: Hospitalist
Discharge Problem:
Cachexia, Acute hypokalemia, Long QT interval, Hypoalbuminemia, Abnormal chest x-ray
Prescriptions:
No Action
clonazepam 0.5 mg Tablet
0.5 mg PO BIDPRN PRN (Reason: anxiety)
escitalopram oxalate [Lexapro] 20 mg Tablet
20 mg PO DAILY
atorvastatin 20 mg Tablet
20 mg PO DAILY
Linzess 72 mcg Capsule
72 mcg PO DAILY
Mounjaro 7.5 mg/0.5 mL Pen Injector
7.5 mg SC BLAKELY
promethazine 25 mg tablet
25 mg PO QID PRN (Reason: nausea and vomiting) Qty: 10 0RF
potassium chloride 20 mEq tablet extended release
20 meq PO BID Qty: 14 0RF
Referrals:
Cassius Cruz DO [Family Provider, Family Practice]
Interventions
Interventions:
*Risk Screen - Suicide Last Done: 05/01/25 17:09
*General Assessment Last Done: 05/01/25 17:09
*Neglect/Abuse Screening Last Done: 05/01/25 17:09
*ED- Fall Risk Assessment Last Done: 05/01/25 17:09
*ED COVID-19 Vaccine History Last Done: 05/01/25 17:09
Discharge Date and Time
Print Language: UZBEK
[2025-05-01 22:21] VITALS: BP 96/65
--- NOTE | 2025-05-01 23:03 | HPS.HSE ---
Family Physician
-
Family Physician: Cassius Cruz
Chief Complaint
-
Failure to thrive
History of Present Illness
This is a 55-year-old female with past medical history significant for abs-aymxbwf-pbljeksvp diabetes, history of gastric bypass and weight loss, questionable history of asthma/COPD presenting to the emergency department with failure to thrive and
at 150 pound weight loss over the last 1 year.
Patient reported that weight loss began initially in the setting of Mounjaro use. She was on 7.5 for the Mounjaro and this was doubled at some point. He had intensive weight loss and when he followed up with PCP she was told to discontinue the
Mounjaro. Despite discontinued Mounjaro the patient still continued to have rapid weight loss. She states she is lost about more and 50 pounds over the last 1 year and this is the lowest weight she has ever been. At the same time she has had
significant dental issues and had extraction of all of her teeth. She has been having trouble chewing and swallowing secondary to this dental issues. She has also developed intermittent nausea and vomiting and decreased appetite. She attempts to
cook but she is unable to eat the food and then when she tries to eat he has nausea and vomiting.
She has been seen by GI and has had a gastric emptying study, EGD which showed no acute findings. She states that she was supposed to get a PET scan but has not been able to get this. She is a smoker but denies any history of malignancy. She
reported that earlier on she did have diarrhea but this was markedly diminished and despite improvement in her diarrhea she still has ongoing weight loss.
Patient reported that she has had episodes of lower extremity edema in the past and has had them again in the last few days. She reports that she is only taking as needed diuretic once in the last 2 weeks denies taking diuretics on a regular basis.
She reports decreased concentration and difficulty to walk. She has stopped antihypertensives.
She denies any cough. She denies any fevers or chills. She denies any urinary symptoms. There has been no night sweats.
In the emergency department blood pressure was 96/60 with a pulse of 70 and she was satting 98% on room air.
Chest x-ray shows patchy lingular opacification. CBC was unremarkable. Electrolytes notable for sodium of 126, potassium of 2.8, BUN of 30 and creatinine of 1.7. Magnesium was 1.9 total bili 2.3. Total albumin 1 was 2.6 with alk phos of 180.
ECG shows a normal sinus rhythm at a rate of 68 with QTc of 644.
TSH, B12 and folate in the normal range.
Medical History
Past Medical History
Past Medical History: Reports Other ( hypertension, pancreatitis, anxiety, gastric bypass,)
Past Surgical History: Reports Other (Cholecystectomy, hernia repair, gastric bypass, breast reduction surgery, bilateral shoulder surgeries, tonsillectomy, rummy tuck )
Social History
Tobacco: Smoker
Alcohol: None
Drug: None
Family History
Family History: Not pertinent
Allergies / Home Medications
Allergies reflects when Allergies were last updated in [employer].
Home Medications with original date entered in [employer]
Allergy/Medication List:
Allergies
Allergy/AdvReac Type Severity Reaction Status Date / Time
ciprofloxacin (From Cipro) Allergy Rash Verified 01/16/25 20:25
Home Medications
clonazepam 0.5 mg tablet 0.5 mg PO BIDPRN PRN anxiety 01/16/24
escitalopram oxalate 20 mg tablet (Lexapro) 20 mg PO DAILY Mental Health/Anxiety 01/16/24
atorvastatin 20 mg tablet 20 mg PO DAILY 01/16/25
linaclotide 72 mcg capsule (Linzess) 72 mcg PO DAILY 01/16/25
potassium chloride 20 mEq tablet,extended release 20 meq PO BID #14 tabs 01/16/25
promethazine 25 mg tablet 25 mg PO QID PRN nausea and vomiting #10 tabs 01/16/25
tirzepatide 7.5 mg/0.5 mL subcutaneous pen injector (Mounjaro) 7.5 mg SC BLAKELY 01/16/25
Review of Systems
-
Constitutional: Reports Weight Loss and Sleep Disturbance
EENT: Reports No Symptoms
Respiratory: Reports No Symptoms
Cardiac: Reports No Symptoms
Abdomen/GI: Reports Nausea, Vomiting and Anorexia
: Reports No Symptoms
Musculoskeletal: Reports No Symptoms
Skin: Reports No Symptoms
Neurological: Reports Weakness
Endocrine: Reports No Symptoms
Hematologic/Lymphatic: Reports No Symptoms
Psych: Reports No Symptoms
Physical Exam
Vital Signs
Vital Signs
Temp Pulse Resp BP Pulse Ox
98.5 F 70 18 96/65 98
05/01/25 17:09 05/01/25 22:21 05/01/25 22:21 05/01/25 22:21 05/01/25 22:21
Physical Exam
General: Well Developed, Well Nourished and No Apparent Distress
HEENT: NormoCephalic, Moist mucous membranes and Atraumatic
Respiratory: Wheezes
Cardiac: S1/S2 and Regular Rhythm; No Murmur or Rub
GI: Soft, Non Tender, Non Distended and Normal Bowel Sounds; No Organomegaly
Rectal: Deferred by Provider
Musculoskeletal: No Clubbing, No Cyanosis, Edema, Left Lower Extremity and Edema, Right Lower Extremity
Skin: No Rash
Neuro: AO x 3 and Nonfocal/grossly intact
Psych: Calm
Laboratory Results
-
05/01/25 17:26
05/01/25 17:26
Laboratory Results
Total Bilirubin 2.3 mg/dl (0.2-1.3) H 05/01/25 17:26
AST 28 U/L (14-36) 05/01/25 17:26
ALT 34 U/L (0-35) 05/01/25 17:26
Alkaline Phosphatase 156 U/L (38-126) H 05/01/25 17:26
Lipase 14 U/L (23-300) L 05/01/25 17:26
Data Reviewed
-
Diagnostic Radiology: Image Personally Visualized and interpreted
Medical Tests (Nuc Med, Echo, EKG etc): Image Personally Visualized and interpreted
Lab Data: Labs Reviewed by me
Old Records: Reviewed
Impression/Plan
-
IMPRESSION:
55-year-old with past medical history significant for anxiety/depression, hyperlipidemia, history of diabetes and obesity at 1 point will is undergone Mounjaro treatment and has been having weight loss over the last 1 month now with associated
nausea vomiting trouble with p.o. intake and episode of diarrhea. She comes into the Emergency Department with weakness and was found to be significantly hyponatremic and hypokalemic. She also has KAREN with a creatinine of 1.7. She does appear to
have some cachexia.
PLAN:
1. Hyponatremia - Na 126, low BPs, h/o weightloss and poor po intake. Suspect hypovolemic hyponatremia. TSH wnl. KAREN. Denies diuretics. On lexapro.
- admit to telemetry
- fluid resuscitation with NS for now, 100ml/hr + 20 kcl
- orthostatic vs
- urine osm and sodium
- check am cortisol
- holding escitalopram for now
- nephrology consult
2. Hypokalemia w/ metabolic alkalosis- Hypokalemia, alkalosis suggest GI losses or diuretic use surreptitiously. Denies etoh. Again h/o weightloss and poor oral intake. Denies diuretics. Complicated by Qtc prolongation
- replete K as above also to correct alkalosis
- hold qt prolonging meds
- 1 g magsulfate
- vbg in am
- ecg daily
3. KAREN - Prerenal azotemia suspected. Hypoalbuminemia
- u/a and protein/cr ratio
- iv fluids as above
- monitor i/os
4. N/V/Weightloss - Unclear if functional. Hx of significant GI outpatient w/u
- antiemetics
- nutritional supplemenation
- check pre-albumin
- GI consult
5. Patchy lingula opacity. No cough, wheezing, sob or hypoxia. Afebrile
- no abx indicated, monitor
DVT PPX - heparin sq
Code status - Full Code
[2025-05-02] VITALS (38 sets, daily range): BP systolic 67–109; BP diastolic 47–89; PULSE 66; BMI 27.8
[2025-05-02] MEDS: HEPARIN SC (01:42)
[2025-05-02] MEDS: MAGNESIUM SULFATE 102 GRAMS IV (01:52)
[2025-05-02] MEDS: KCL 1010 MEQ IV ×3 (02:41→22:47)
[2025-05-02] MEDS: NSS 500 IV (03:43)
[2025-05-02] MEDS: FLEXBUMIN 100 IV ×3 (05:03→22:07)
[2025-05-02] MEDS: LEVOPHED 250 IV (06:09)
[2025-05-02 07:12] LABS: Venous Blood Gas B.E. 13.3 mmol/L (-4 to +4); Venous Blood Gas O2 Sat % 71.6 %
--- NOTE | 2025-05-02 07:25 | W.PN.HOSP.TC ---
Today's Communication/Plan
-
wean pressor support as tolerated
replete K
IVF support
avoid QT prolonging agents
Hep gtt
diet as per GI
Assessment / Plan
Assessment / Plan
Physical Exam
General: No acute distress, appears comfortable at this time.
HEENT: NormoCephalic, Moist mucous membranes and Atraumatic
Respiratory: Clear to auscultation b/l, stable respiratory status on room air
Cardiac: S1/S2 and Regular Rhythm; No Murmur or Rub
GI: Soft, Non Tender, Non Distended and Normal Bowel Sounds; No Organomegaly
Musculoskeletal: +2 pitting edema lower ext's b/l
Skin: No Rash
Neuro: AO x 3 Conversant coherent
Psych: Calm
55F anxiety/depression, hyperlipidemia, history of diabetes and hx obesity significant wt loss following gastric bypass and Mounjaro treatment since developed intermittent nausea vomiting trouble with p.o. intake and episodes of diarrhea for past
month. Profound weakness, ED eval significant for hyponatremia, hypokalemia, and KAREN. Venous Doppler evaluation LE's would also find acute DVT RLE.
PLAN:
# Hyponatremia low BPs, h/o weightloss and poor po intake. Suspect hypovolemic hyponatremia. TSH wnl. KAREN. Denies diuretics. On lexapro.
#Hypoalbuminemia likely due to malnutrition poor oral intake
#Requiring low dose pressor support
- IMU admit
- fluid resuscitation with NS 100ml/hr + 20 kcl
- urine osm and sodium
- am cortisol wnl
- holding escitalopram for now
- nephrology consult
-wean off pressor support as tolerated
-IV albumin infusions
# Hypokalemia w/ metabolic alkalosis- Hypokalemia, alkalosis suggest GI losses or diuretic use surreptitiously. Denies etoh. Again h/o weightloss and poor oral intake. Denies diuretics. Complicated by Qtc prolongation
- monitor and replete K as necessary
- hold/avoid qt prolonging meds
- Mg supplemented
- vbg relatively unremarkable
- ecg daily
# KAREN - Prerenal azotemia suspected. Hypoalbuminemia
- u/a and protein/cr ratio
- iv fluids as above
- monitor i/os
-nephro eval
#N/V/Weightloss - Unclear if functional. Hx of significant GI outpatient w/u
- antiemetics prn (Tigan prn at this time due to significant QT prolongation)
- nutritional supplemenation
- check pre-albumin
- GI consult
#LE swelling likely edema 2/2 hypoalbuminemia
#RLE confirmed DVT as noted on Venous duplex
hep gtt for now, avoiding Lovenox d/t karen, eventual transition to DOAC
# Patchy lingula opacity. No cough, wheezing, sob or hypoxia. Afebrile
- no abx indicated, monitor
PT/OT appreciated SNF rehab
DVT PPX - heparin gtt
Code status - Full Code
Discussed with patient and patient's sons Jesus and Tim at bedside
I spent a total of 55 minutes with the patient or on the floor. More than 50% of this time involved counseling and coordination of care.
Anticipated Discharge: > 48 hours
Subjective/Interval History
-
Date of Service: May 02, 2025
No acute distress, sitting up comfortably in bed, overall reports feeling well though appetite remains poor. Denies current pain nausea.
Objective Data
-
Labs:
Laboratory Results
05/02/25
06:51
WBC Pending
Hgb Pending
Hct Pending
Plt Count Pending
Sodium Pending
Potassium Pending
Chloride Pending
Carbon Dioxide Pending
BUN Pending
Creatinine Pending
Glucose Pending
Calcium Pending
Vital Signs:
Vital Signs
Temp Pulse Resp BP Pulse Ox
98.5 F 66 13 92/55 100
05/01/25 17:09 05/02/25 06:45 05/02/25 06:45 05/02/25 06:45 05/02/25 06:30
[2025-05-02 07:35] LABS: Prealbumin (Transthyretin) 3.3 mg/dl (17.6-36.0)
[2025-05-02 07:41] LABS: Blood Urea Nitrogen 25 mg/dl (7-17); Calcium 7.4 mg/dl (8.4-10.2); Carbon Dioxide 36 mmol/L (22-30); Chloride 90 mmol/L (98-107); Glucose 75 mg/dl (70-99); Magnesium 2.5 mg/dl (1.6-2.3); Potassium 2.7 mmol/L (3.5-5.1); Sodium 131 mmol/L (135-145); eGFR 34.98
[2025-05-02 07:43] LABS: Hematocrit 28.3 % (37.0-47.0); Hemoglobin 9.5 g/dL (12.0-16.0); Mean Corp Hgb Conc. 33.6 g/dL (33.0-37.0); Mean Corpuscular Volume 87.6 fL (81.0-99.0); Platelet Count 312 10^3/uL (130-400); Red Cell Dist. Width 16.2 % (11.5-14.5)
[2025-05-02 07:56] LABS: Procalcitonin 0.12 ng/ml (0.0-0.25)
[2025-05-02 08:06] LABS: Cortisol, Random 9.9 ug/dl
[2025-05-02] MEDS: KCL ELIXIR 40 MEQ PO (08:20)
[2025-05-02] MEDS: HEPARIN 5000 UNITS SC (08:20)
--- NOTE | 2025-05-02 09:07 | W.CON.NEPH ---
Consultation
-
Date/Time Consultation Requested: 05/02/2025 7:30 AM
Date/Time Consultation Performed: 05/02/2025 9:00 AM
Requesting Provider: Dr. Mahan
Performing Provider: Dr. Weber
Reason for Consultation: Acute kidney injury hyponatremia
Medical History
-
Chief Complaint: Acute kidney injury hyponatremia
History of Present Illness:
The patient is a 55-year-old female with an apparent history of CKD as noted by creatinine of 1.4 from 01/16/2025. She has a history of dyslipidemia maintained on statin therapy and is maintained on Lexapro for anxiety. She also is maintained on
intermittent diuretic therapy for edema.She has past medical history significant for eqh-bqwlukh-idefujejt diabetes, history of gastric bypass and weight loss, questionable history of asthma/COPD presenting to the emergency department with failure
to thrive and at 150 pound weight loss over the last 1 year.
Patient reported that weight loss began initially in the setting of Mounjaro use. She was on 7.5 for the Mounjaro and this was doubled at some point. He had intensive weight loss and when he followed up with PCP she was told to discontinue the
Mounjaro. Despite discontinued Mounjaro the patient still continued to have rapid weight loss. She states she is lost about more and 50 pounds over the last 1 year and this is the lowest weight she has ever been. At the same time she has had
significant dental issues and had extraction of all of her teeth. She has been having trouble chewing and swallowing secondary to this dental issues. She has also developed intermittent nausea and vomiting and decreased appetite. She attempts to
cook but she is unable to eat the food and then when she tries to eat he has nausea and vomiting.
She has been seen by GI and has had a gastric emptying study, EGD which showed no acute findings. She states that she was supposed to get a PET scan but has not been able to get this. She is a smoker but denies any history of malignancy. She
reported that earlier on she did have diarrhea but this was markedly diminished and despite improvement in her diarrhea she still has ongoing weight loss.
Patient reported that she has had episodes of lower extremity edema in the past and has had them again in the last few days. She reports that she is only taking as needed diuretic once in the last 2 weeks denies taking diuretics on a regular basis.
She reports decreased concentration and difficulty to walk. She has stopped antihypertensives.
She denies any cough. She denies any fevers or chills. She denies any urinary symptoms. There has been no night sweats.
In the emergency department blood pressure was 96/60 with a pulse of 70 and she was satting 98% on room air.
Past Medical History
Past Medical History: Reports Other ( hypertension, pancreatitis, anxiety, gastric bypass,)
Past Surgical History: Reports Other (Cholecystectomy, hernia repair, gastric bypass, breast reduction surgery, bilateral shoulder surgeries, tonsillectomy, tummby tuck )
Social History
Tobacco: Smoker
Alcohol: None
Drug: None
Allergies / Home Medications
Allergy/AdvReac Type Severity Reaction Status Date / Time
ciprofloxacin (From Cipro) Allergy Rash Verified 01/16/25 20:25
�Medication �Instructions �Recorded �Confirmed �Type
clonazepam 0.5 mg tablet 0.5 mg PO BIDPRN PRN anxiety 01/16/24 05/02/25 History
escitalopram oxalate 20 mg tablet 20 mg PO DAILY Mental 01/16/24 05/02/25 History
(Lexapro) Health/Anxiety
atorvastatin 20 mg tablet 20 mg PO DAILY 01/16/25 05/02/25 History
potassium chloride 20 mEq 20 meq PO BID #14 tabs 01/16/25 05/02/25 Rx
tablet,extended release
brexpiprazole 2 mg tablet (Rexulti) 2 mg PO DAILY 05/02/25 05/02/25 History
famotidine 40 mg tablet 40 mg PO DAILY 05/02/25 05/02/25 History
furosemide 80 mg tablet 80 mg PO DAILY 05/02/25 05/02/25 History
omeprazole 40 mg capsule,delayed 40 mg PO DAILY 05/02/25 05/02/25 History
release
ondansetron HCl 4 mg tablet 4 mg PO Q8H PRN nausea 05/02/25 05/02/25 History
Review of Systems
-
History Source: Patient
All other systems: Negative unless noted
Constitutional: Weight Loss and Fatigue
Abdomen/GI: Anorexia
Musculoskeletal: Edema
Hematologic/Lymphatic: No Symptoms
Physical Exam
Vital Signs
Vital Signs
Temp Pulse Resp BP Pulse Ox
98.5 F 66 14 94/60 98
05/01/25 17:09 05/02/25 08:15 05/02/25 08:15 05/02/25 08:15 05/02/25 08:00
Lab Results
05/02/25 06:51
WBC 7.9 10^3/uL (4.8-10.8) 05/02/25 06:51
RBC 3.23 10^6/uL (4.20-5.40) L 05/02/25 06:51
Hgb 9.5 g/dL (12.0-16.0) L 05/02/25 06:51
Hct 28.3 % (37.0-47.0) L 05/02/25 06:51
Plt Count 312 10^3/uL (130-400) D 05/02/25 06:51
eGFR 34.98 05/02/25 06:51
Albumin 2.6 g/dl (3.5-5.0) L 05/01/25 17:26
Physical Exam
General: AOx3, Nontoxic , cachexia
HEENT: PERRL, EOMI, Anicteric, Conjunctivae Clear, Ear/Nose Intact, Hearing Normal, Oropharynx Clear/Moist, Dentition Intact, Facial Symmetry, Neck Supple, Neck: Trachea Midline, No JVD and No Thyromegaly, no Bruits
Respiratory: Clear to auscultation bilaterally with normal lung exersion
Cardiac: S1/S2 and Regular Rate/Rhythm
Breast: Deferred by me
Abdomen: Soft, Nontender, Nondistended, Normal Bowel Sounds and No Hepatosplenomegaly
Rectal: Deferred by Provider
Genito-urinary: No Costovertebral Tenderness
Extremities: No Clubbing, No Cyanosis and plus one edema
Skin: No Rash or open lesions
Neuro: Nonfocal/Grossly Intact, CN II-XII (Intact) and Strength (Musculoskeletal exam 5 out of 5 both upper and lower extremities)
Hematologic/Lymphatic: No Cervical Lymphadenopathy, No Submandibular Lymphadenopathy and No Supraclavicular Lymphadenopathy
Psych: Mood/afflect pleasant, Insight/judgement good and Appropriate
Vascular: plus 2 pedal and radial pulses
Data Reviewed
-
Radiology: Image Personally Visualized and interpreted (Chest x-ray personally reviewed by myself I did not appreciate an infiltrate or congestive heart failure)
Labs: Labs Reviewed by me (BMP CBC urinalysis)
Old Records: Reviewed (Old labs previously reviewed from date 01/16/2025 in electronic medical record creatinine 1.4)
Assessment/Plan
-
Impression:
KAREN
CKD 3a (1.4)
Hyponatremia
Hypokalemia
Metabolic alkalosis
Hypoalbuminemia
Admission for nausea vomiting/ weightloss
Plan:
-Concur with IV fluid resuscitation and electrolyte replacement K
-IVfs to support hypotension
-Suspect acute kidney injury is likely prerenally mediated in setting of hypoalbuminemia and compromised volume status
- Follow-up urine sodium urine creatinine urine osmolality re: KAREN and hyponatremia
- withhold diiuretics
-Hypokalemia exacerbated by likely underlying contraction alkalosis
-recheck UA, urine sodium and urine creatinine
[2025-05-02] MEDS: KCL 270 MEQ IV (09:37)
[2025-05-02 10:14] LABS: Urine Character Clear (Clear)
[2025-05-02 10:39] LABS: Urine Red Blood Cell 0-2 /HPF (0-2); Urine Squamous Cell 16-20 /LPF (Few)
[2025-05-02 12:09] LABS: Iron 36 ug/dl (37-170)
[2025-05-02 12:23] LABS: Total Iron Binding Capacity 101 ug/dl (265-497)
[2025-05-02] MEDS: THERAGRAN 1 TABLET PO (12:27)
[2025-05-02 12:48] LABS: Ferritin 358.0 ng/ml (11.1-264.0)
[2025-05-02 12:51] LABS: APTT 31.7 Sec (23.4-35.0)
--- NOTE | 2025-05-02 13:06 | PTCARENOTE ---
Pt arrived to floor in stretcher from ED. IVF & Levo infusing into RAC; LFA int unable to flush - IV removed. Pt denies pain/nausea. AAO x 3, slow speech; [facility]. Lungs CTA; Small skin tear noted on LFA and abrasion on L
great toe; Pt children at bedside. Pt oriented to room, call merino within reach. WIll continue to monitor and assess.
[2025-05-02 13:14] LABS: Blood Urea Nitrogen 24 mg/dl (7-17); Calcium 7.8 mg/dl (8.4-10.2); Carbon Dioxide 38 mmol/L (22-30); Chloride 94 mmol/L (98-107); Estimated Creatinine Clearance 41 ml/min; Glucose 93 mg/dl (70-99); Magnesium 2.3 mg/dl (1.6-2.3); Potassium 3.4 mmol/L (3.5-5.1); Sodium 131 mmol/L (135-145); eGFR 37.62
--- NOTE | 2025-05-02 13:30 | CON.GI ---
Addendum entered and electronically signed by Arelis Avelar Do, MD 05/02/25 15:34:
I saw and evaluated the patient. I reviewed the resident�s note and agree with findings and plan as documented in the resident�s note.
Chen is a 55yo W with h/o RNY gastric bypass, chronic pain previously on suboxone, and DM who presents with poor PO intake, nausea and electrolyte abnormalities. She states her normal weight is 170-190. She was on GLP1 for DM and wt loss. She
lost weight stopped GLP1 7 months ago but continues to have poor appetite. She had extensive GI workup in [facility] including EGD/colon and UGI series. Gastric emptying study not able to be done due to her gastric bypass history. She also recently
lost all her teeth. She does not wear dentures because they do not fit her well. She also has baseline constipation. She is not on linzess due to diarrhea. Vitals stable. Exam appears much older than stated age, LE edema, NTTP, hypoactive BS.
Labs reviewed anemia with mix iron panel.
Impression
- Weight loss and poor oral intake
Extensive GI workup at [facility] per pt includes EGD/colon and UGI
Suspect recent loss of all teeth, constipation and gastroparesis may be contributor
- Electrolyte abnormalities
- Recent loss of all teeth
- Recent GLP1 use last 6mo ago
- Chronic constipation
- H/o RNY gastric bypass 20yrs ago
- KAREN
- H/o opioid abuse on suboxone
- HTN
- H/o pancreatitis
- Anxiety
- s/p CYY
Recommendations
- Per RN eating 100% of mechanical soft diet without issue
- Adv to regular diet
- Recommend she bring in dentures
- C/w PPI IV
- Miralax daily basis
- Discussed trial of reglan but given improvement in oral intake so quickly would hold on that for now
- Per pt she has PET scheduled OP basis
Will follow with you
Original Note:
Consultation
-
Date/Time Consultation Requested: 05/02/2025
Date/Time Consultation Performed: 05/02/2025
Medical History
Chief Complaint / HPI
Chief Complaint: Failure to thrive
History of Present Illness:
Patient is a 55-year-old female with history of gastric bypass surgery, chronic opioid use, constipation, diabetes mellitus, history of GLP agonist use who presents to the ER with early satiety, nausea and decrease in appetite. She had a gastric
bypass surgery 20 years ago, following that she had chronic back ache and pain which she was started on opioids, followed by opioid dependence and treatment with Suboxone and Sublocade, as per the patient she came off Percocet about 2 years ago. In
addition, she started having dental issues with a lot of extractions and now she has noted which has affected her eating habits as well.. She also had chronic constipation for which she was started on Linzess. About 2 years ago she was gaining
weight and was started on Mounjaro for diabetes with weight gain. She came off Mounjaro about 7 months ago but ever since she had issues with appetite and early satiety. She has lost 156 pounds in the last year.
She denies any NSAID use, supplement use, heartburn, indigestion, reflux. She had upper and lower GI scopes done that did not reveal any cause. She could not do gastric emptying study because of her gastric bypass surgery but she is supposed to
have a PET scan that was scheduled by her terrapin fisher. She has had an upper GI series for which the report is pending .
Past Medical History
Past Medical History: Other (hypertension, pancreatitis, anxiety, gastric bypass, chronic opioid dependence, diabetes mellitus)
Past Surgical History: Other (Cholecystectomy, hernia repair, gastric bypass, breast reduction surgery, bilateral shoulder surgeries, tonsillectomy, rummy tuck)
Social History
Tobacco: Smoker
Alcohol: Occasional
Drug: None
Living: With Family
Family History
Family History: Reviewed & Not Pertinent (Denies any family history of colon cancer, gastric cancer, IBD)
Allergies / Home Medications
Allergy/AdvReac Type Severity Reaction Status Date / Time
ciprofloxacin (From Cipro) Allergy Rash Verified 01/16/25 20:25
�Medication �Instructions �Recorded
clonazepam 0.5 mg tablet 0.5 mg PO BIDPRN PRN anxiety 01/16/24
escitalopram oxalate 20 mg tablet 20 mg PO DAILY Mental 01/16/24
(Lexapro) Health/Anxiety
atorvastatin 20 mg tablet 20 mg PO DAILY 01/16/25
potassium chloride 20 mEq 20 meq PO BID #14 tabs 01/16/25
tablet,extended release
brexpiprazole 2 mg tablet (Rexulti) 2 mg PO DAILY 05/02/25
famotidine 40 mg tablet 40 mg PO DAILY 05/02/25
furosemide 80 mg tablet 80 mg PO DAILY 05/02/25
omeprazole 40 mg capsule,delayed 40 mg PO DAILY 05/02/25
release
ondansetron HCl 4 mg tablet 4 mg PO Q8H PRN nausea 05/02/25
Review of Systems
-
All other systems: A 12 pt ROS was Negative except as stated above in HPI
Vital Signs
Temp Pulse Resp BP Pulse Ox
98.5 F 70 16 95/60 98
05/01/25 17:09 05/02/25 09:45 05/02/25 09:45 05/02/25 08:45 05/02/25 08:00
Physical Exam
Exam
General: Other (Appears cachectic, chronically ill and pale appearing)
HEENT: Other (Dry mucous membranes)
Respiratory: Clear
Cardiac: S1/S2 and Regular Rhythm
GI: Soft, Non Tender, Non Distended and Normal Bowel Sounds
Musculoskeletal: Other (Bilateral pedal edema)
Skin: Warm and Dry
Neuro: Awake and Oriented
Psych: Calm
Results
WBC 7.9 10^3/uL (4.8-10.8) 05/02/25 06:51
Hgb 9.5 g/dL (12.0-16.0) L 05/02/25 06:51
Hct 28.3 % (37.0-47.0) L 05/02/25 06:51
MCV 87.6 fL (81.0-99.0) 05/02/25 06:51
Plt Count 312 10^3/uL (130-400) D 05/02/25 06:51
Absolute Neuts (auto) 8.8 10^3/uL (1.4-6.5) H 05/01/25 17:26
APTT 31.7 Sec (23.4-35.0) 05/02/25 12:32
Sodium 131 mmol/L (135-145) L 05/02/25 12:32
Potassium 3.4 mmol/L (3.5-5.1) L D 05/02/25 12:32
Chloride 94 mmol/L (98-107) L 05/02/25 12:32
Carbon Dioxide 38 mmol/L (22-30) H 05/02/25 12:32
BUN 24 mg/dl (7-17) H 05/02/25 12:32
Creatinine 1.6 mg/dL (0.6-1.0) H 05/02/25 12:32
Calcium 7.8 mg/dl (8.4-10.2) L 05/02/25 12:32
Total Bilirubin 2.3 mg/dl (0.2-1.3) H 05/01/25 17:26
AST 28 U/L (14-36) 05/01/25 17:26
ALT 34 U/L (0-35) 05/01/25 17:26
Alkaline Phosphatase 156 U/L (38-126) H 05/01/25 17:26
Lipase 14 U/L (23-300) L 05/01/25 17:26
Diagnostic Image Results:
Peripheral vascular ultrasound 05/02/2025
IMPRESSION: Occlusive thrombus in the right peroneal and posterior tibial veins.
No findings to suggest deep venous thrombosis of the left lower extremity.
Abdomen/pelvis CT 03/19/2024
Abdomen and pelvis: The liver, spleen, gallbladder and pancreas are unremarkable aside from hepatic fatty infiltration. There is postsurgical change about the stomach consistent with previous gastric bypass surgery The adrenal glands and kidneys are
unremarkable. The abdominal aorta is normal caliber. No significant lymphadenopathy is noted. Bowel loops are normal caliber. The terminal ileum and appendix are within normal limits. There is moderate fecal material throughout the colon.
Prior GI Procedures:
EGD:
Done at [place] in 2023-normal as per the patient
Colonoscopy:
Done at [place] 2023-polyps as per the patient
Assessment / Plan
-
Impression
Gastroparesis
History of diabetes, GLP agonist use, and gastric bypass surgery
History of cholecystectomy
Hyperlipidemia
Anxiety
Chronic constipation-on Linzess 72 mcg
Hypokalemia
Hyponatremia
Hypoalbuminemia
KAREN
On heparin infusion for occlusive thrombus in right peroneal and posterior tibial veins
Assessment/plan
Most likely patient has no gastric obstruction as her endoscopy was normal-try to get records from [place]
Gastric emptying study cannot be done in the patient due to gastric bypass surgery
Start clear liquid diet
Replete electrolytes
Add Reglan before meals to help with gastric motility
GI will continue to follow
-
-
Thank you for consultation and allowing me to participate in the patient's care. Please call the sanitation engineer GI physician during the after hours with any questions or concerns.
[2025-05-02] MEDS: HEPARIN 25000 UNITS/250 ML IV (15:32)
--- NOTE | 2025-05-02 17:22 | VATNOTE ---
Rt. Picc inserted today, tip read as atrium. Per Radiology, tip retracted 4 cm's per policy to place tip SVC. hog trader aware.
[2025-05-02] MEDS: REGLAN 5 MG IV ×2 (18:06→22:47)
[2025-05-02] MEDS: POTASSIUM PHOSPHATE 259.0909 MEQ IV (18:07)
[2025-05-02 22:10] LABS: APTT 62.9 Sec (23.4-35.0)
[2025-05-03] VITALS (48 sets, daily range): BP systolic 75–138; BP diastolic 45–99; BMI 25.1
[2025-05-03] MEDS: LEVOPHED 250 IV ×2 (00:36→14:16)
--- NOTE | 2025-05-03 00:43 | PTCARENOTE ---
assisted pt to [facility] - he had a large formed bm mixed with urine- levo and hep gtts per orders. fluids through picc- picc with good return. sinus afebrile- ax3 but sometimes slow to respond but overall good understanding of her currently situation
regarding health
[2025-05-03 04:59] LABS: Hematocrit 24.7 % (37.0-47.0); Hemoglobin 8.5 g/dL (12.0-16.0); Mean Corp Hgb Conc. 34.4 g/dL (33.0-37.0); Mean Corpuscular Volume 87.6 fL (81.0-99.0); Platelet Count 340 10^3/uL (130-400); Red Cell Dist. Width 17.3 % (11.5-14.5)
[2025-05-03] MEDS: FLEXBUMIN 100 IV ×3 (05:02→20:51)
[2025-05-03 05:17] LABS: APTT > 200 Sec (23.4-35.0)
[2025-05-03 05:29] LABS: ALT (SGPT) 21 U/L (0-35); AST (SGOT) 20 U/L (14-36); Albumin 2.7 g/dl (3.5-5.0); Alkaline Phosphatase 110 U/L (38-126); Blood Urea Nitrogen 18 mg/dl (7-17); Calcium 7.3 mg/dl (8.4-10.2); Carbon Dioxide 30 mmol/L (22-30); Chloride 99 mmol/L (98-107); Estimated Creatinine Clearance 39 ml/min; Glucose 123 mg/dl (70-99); Magnesium 2.1 mg/dl (1.6-2.3); Potassium 3.1 mmol/L (3.5-5.1); Sodium 134 mmol/L (135-145); Total Protein 4.7 g/dl (6.3-8.2); eGFR 40.65
--- NOTE | 2025-05-03 05:37 | PTCARENOTE ---
hep gtt stopped for high ptt- to be restarted at 0730 at 1400 units/hr
--- NOTE | 2025-05-03 05:43 | PTCARENOTE ---
am k is 3.1- inpatient services rn ordered po k and k rider see mar
[2025-05-03] MEDS: KCL 40 MEQ PO (05:54)
[2025-05-03] MEDS: KCL 1010 MEQ IV (08:25)
[2025-05-03] MEDS: PROTONIX 40 MG PO (08:26)
[2025-05-03] MEDS: KCL ELIXIR 40 MEQ PO (08:26)
[2025-05-03] MEDS: THERAGRAN 1 TABLET PO (08:26)
--- NOTE | 2025-05-03 08:47 | W.PN.GI.CBS2 ---
Today's Communication / Plan
-
Tolerating regular diet and denies any active GI complaints
GI will sign off please call for ?
Assessment / Plan
-
Chen is a 55yo W with h/o RNY gastric bypass, chronic pain previously on suboxone, and DM who presents with poor PO intake, nausea and electrolyte abnormalities. She states her normal weight is 170-190. She was on GLP1 for DM and wt loss. She
lost weight stopped GLP1 7 months ago but continues to have poor appetite. She had extensive GI workup in [facility] including EGD/colon and UGI series. Gastric emptying study not able to be done due to her gastric bypass history. She also recently
lost all her teeth. She does not wear dentures because they do not fit her well. She also has baseline constipation.
Impression
- Weight loss and poor oral intake
Extensive GI workup at [facility] per pt includes EGD/colon and UGI
Suspect recent loss of all teeth, constipation and gastroparesis may be contributor
- Electrolyte abnormalities
- Recent loss of all teeth
- Recent GLP1 use last 6mo ago
- Chronic constipation
- H/o RNY gastric bypass 20yrs ago
- KAREN
- H/o opioid abuse on suboxone
- HTN
- H/o pancreatitis
- Anxiety
- s/p CYY
Recommendations
- Per RN eating 100% of mechanical soft diet and now regular without issue
- Recommend she bring in dentures
- C/w PPI IV
- Miralax daily basis
- Discussed trial of reglan but given improvement in oral intake so quickly would hold on that for now
- Per pt she has PET scheduled OP basis
- Given recent EGD/colon UGI done by her GI outpatient basis and rapid improvement with correction of electrolytes would not repeat EGD at this juncture
GI will sign off please call for ?
She will FU with her GI in [facility]
Subjective
Subjective
Date of Service: May 03, 2025
Per RN ate 100% of puree diet then regular meal. She denies abd pain nausea or vomiting. Passed large non bloody BM yesterday
Objective
Data Reviewed
Laboratory Data:
Laboratory Results
05/03/25 04:36
05/03/25 04:36
Laboratory Results
APTT > 200 Sec (23.4-35.0) H* 05/03/25 04:36
Phosphorus 3.7 mg/dl (2.5-4.5) 05/03/25 04:36
Magnesium 2.1 mg/dl (1.6-2.3) 05/03/25 04:36
Total Bilirubin 2.0 mg/dl (0.2-1.3) H 05/03/25 04:36
AST 20 U/L (14-36) 05/03/25 04:36
ALT 21 U/L (0-35) 05/03/25 04:36
Alkaline Phosphatase 110 U/L (38-126) 05/03/25 04:36
Lipase 14 U/L (23-300) L 05/01/25 17:26
Vital Signs and I&O:
Vital Signs
Temp Pulse Resp BP Pulse Ox
98.0 F 63 15 113/68 95
05/03/25 07:41 05/03/25 06:00 05/03/25 06:00 05/03/25 06:00 05/02/25 16:34
I&O
05/02/25 05/03/25 05/04/25
06:59 06:59 06:59
Intake Total 2410 / 2410
Output Total 600 / 600
Balance 1809 / 1809
Physical Exam
Physical Exam
GEN: No acute distress, appears older than stated age.
HEENT: anicteric, extraocular movements intact, clear oropharynx without exudates
GI: soft, obese mildly-distended, not tender to palpation, normal active bowel sounds, no hepatosplenomegaly
EXT: warm, well perfused, trace edema bilaterally
NEURO: AAOx3, non-focal
--- NOTE | 2025-05-03 09:13 | W.PN.HOSP.TC ---
Addendum entered and electronically signed by Ziyad Mahan MD 05/04/25 12:55:
Likely anemia of chronic disease
Possible hemodilution contributing to current anemia, on IVF
monitor H&H, Type and screen
Original Note:
Today's Communication/Plan
-
see a/p
Assessment / Plan
Assessment / Plan
Physical Exam
General: No acute distress, appears comfortable at this time.
HEENT: NormoCephalic, Moist mucous membranes and Atraumatic
Respiratory: Clear to auscultation b/l, stable respiratory status on room air
Cardiac: S1/S2 and Regular Rhythm; No Murmur or Rub
GI: Soft, Non Tender, Non Distended and Normal Bowel Sounds; No Organomegaly
Musculoskeletal: +2 pitting edema lower ext's b/l
Skin: No Rash
Neuro: AO x 3 Conversant coherent
Psych: Calm
55F anxiety/depression, hyperlipidemia, history of diabetes and hx obesity significant wt loss following gastric bypass and Mounjaro treatment since developed intermittent nausea vomiting trouble with p.o. intake and episodes of diarrhea for past
month. Profound weakness, ED eval significant for hyponatremia, hypokalemia, and KAREN. Venous Doppler evaluation LE's would also find acute DVT RLE.
PLAN:
# Hyponatremia low BPs, h/o weightloss and poor po intake. Suspect hypovolemic hyponatremia. TSH wnl. KAREN. Denies diuretics. On lexapro.
#Hypoalbuminemia likely due to malnutrition poor oral intake
#Requiring low dose pressor support
- IMU admit
- fluid resuscitation with NS 100ml/hr + 20 kcl
- urine osm and sodium
- am cortisol wnl
- nephrology consult appreciated
-wean off pressor support as tolerated
-IV albumin infusions
-Scheduled Midodrine w/ holding parameters started
# Hypokalemia w/ metabolic alkalosis- Hypokalemia, alkalosis suggest GI losses or diuretic use surreptitiously. Denies etoh. Again h/o weightloss and poor oral intake. Denies diuretics. Complicated by Qtc prolongation
- monitor and replete K as necessary
- QT prolongation since improved
- Mg supplemented
- vbg relatively unremarkable
- cont patient monitor
-minimize use QT prolonging medications
# KAREN - Prerenal azotemia suspected. Hypoalbuminemia
#Suspect underlying CKD III
- iv fluids as above
- monitor i/os
-nephro eval
-Cr improved since admission, initial 1.7 trended down
#N/V/Weightloss - Unclear if functional. Hx of significant GI outpatient w/u
- antiemetics prn (Tigan prn at this time due to significant QT prolongation)
- nutritional supplementation
- GI consult appreciated
#LE swelling likely edema 2/2 hypoalbuminemia
#RLE confirmed DVT as noted on Venous duplex
avoided Lovenox d/t karen
hep gtt to transition to Eliquis tonight
# Patchy lingula opacity. No cough, wheezing, sob or hypoxia. Afebrile
- no abx indicated, monitor
PT/OT appreciated SNF rehab
DVT PPX - heparin gtt
Code status - Full Code
Discussed with patient and patient's son Jesus at bedside and patient's sister Tish over phone
I spent a total of 50 minutes with the patient or on the floor. More than 50% of this time involved counseling and coordination of care.
Anticipated Discharge: > 48 hours
Subjective/Interval History
-
Date of Service: May 03, 2025
No acute distress sitting up comfortably in bed. Denies significant pain at this time. Tolerating diet.
Objective Data
-
Labs:
Laboratory Results
05/02/25 05/02/25 05/03/25
21:35 21:51 04:36
WBC 10.2
Hgb 8.5 L
Hct 24.7 L
Plt Count 340
APTT Cancelled 62.9 H > 200 H*
Sodium 134 L
Potassium 3.1 L
Chloride 99
Carbon Dioxide 30
BUN 18 H
Creatinine 1.5 H
Glucose 123 H
Calcium 7.3 L
Total Bilirubin 2.0 H
AST 20
ALT 21
Alkaline Phosphatase 110
05/03/25
13:30
WBC
Hgb
Hct
Plt Count
APTT Pending
Sodium
Potassium
Chloride
Carbon Dioxide
BUN
Creatinine
Glucose
Calcium
Total Bilirubin
AST
ALT
Alkaline Phosphatase
Vital Signs:
Vital Signs
Temp Pulse Resp BP Pulse Ox
98.0 F 63 15 113/68 95
05/03/25 07:41 05/03/25 06:00 05/03/25 06:00 05/03/25 06:00 05/02/25 16:34
I&O
05/02/25 05/03/25 05/04/25
06:59 06:59 06:59
Intake Total 2410 / 2410
Output Total 600 / 600
Balance 1810 / 1810
[2025-05-03 09:20] LABS: Vitamin D, 25-OH*** < 12.8 ng/mL (30-80)
--- NOTE | 2025-05-03 10:47 | W.PN.NEPH.PH ---
Today's Communication / Plan
-
IV fluids/albumin
Assessment/Plan
-
Impression:
KAREN
CKD 3a (1.4)
Hyponatremia
Hypokalemia
Metabolic alkalosis
Hypoalbuminemia
Admission for nausea vomiting/ weightloss
Plan:
-Concur with IV fluid resuscitation and electrolyte replacement K
-IVfs to support hypotension
-Suspect acute kidney injury is likely prerenally mediated in setting of hypoalbuminemia and compromised volume status
- albumin support
-Hypokalemia exacerbated by likely underlying contraction alkalosis
-recheck UA, urine sodium and urine creatinine= consistent with decreased effective arterial blood volume
-
-
Date of Service: May 03, 2025
CC / HPI / ROS
-
Chief Complaint:
Acute kidney injury
History of Present Illness:
Acute kidney injury on CKD failure to thrive decreased p.o. intake hypoalbuminemia
Review of Systems:.
No chest pain or shortness of breath
Labs
-
Labs:
WBC 10.2 10^3/uL (4.8-10.8) 05/03/25 04:36
RBC 2.82 10^6/uL (4.20-5.40) L 05/03/25 04:36
Hgb 8.5 g/dL (12.0-16.0) L 05/03/25 04:36
Hct 24.7 % (37.0-47.0) L 05/03/25 04:36
Plt Count 340 10^3/uL (130-400) 05/03/25 04:36
Sodium 134 mmol/L (135-145) L 05/03/25 04:36
Potassium 3.1 mmol/L (3.5-5.1) L 05/03/25 04:36
Chloride 99 mmol/L (98-107) 05/03/25 04:36
Carbon Dioxide 30 mmol/L (22-30) 05/03/25 04:36
BUN 18 mg/dl (7-17) H 05/03/25 04:36
Creatinine 1.5 mg/dL (0.6-1.0) H 05/03/25 04:36
eGFR 40.65 05/03/25 04:36
Glucose 123 mg/dl (70-99) H 05/03/25 04:36
Calcium 7.3 mg/dl (8.4-10.2) L 05/03/25 04:36
Phosphorus 3.7 mg/dl (2.5-4.5) 05/03/25 04:36
Albumin 2.7 g/dl (3.5-5.0) L 05/03/25 04:36
Physical Exam
-
Vital Signs:
Vital Signs
Temp Pulse Resp BP Pulse Ox
98.0 F 73 27 138/95 95
05/03/25 07:41 05/03/25 09:00 05/03/25 09:00 05/03/25 09:00 05/02/25 16:34
Respiratory:: Bilateral: CTA
Lung Excursion:: Normal
Abdomen:: Soft
Bowel Sounds:: Normal
Extremity Edema:: +1: Bilateral:
Vega Catheter: No
[2025-05-03] MEDS: HEPARIN 25000 UNITS/250 ML IV (11:36)
--- NOTE | 2025-05-03 12:21 | CM ---
Initial assessment completed with patient and son. Patient lives with her and 2 sons (21, 25 y/o) in a 2 story plus basement home with B/B on 2nd and 1/2 bath on 1st, 3 steps to enter. For the past 5 months SOLE BLACKER, patient had become extremely
weak, unable to eat and having difficulty ambulating due to malnourishment and excessive weight loss (150 lbs in less than 1 year). Patient does drive. She recently purchased a 4 prong cane. No other DME. No in home services. No HC-POA. No
psychiatric hospitalizations, no service. PCP is Dr. Cassius Cruz. Pharmacy is [facility] in [place]. Discharge POC: TBD. Anticipate home with no needs vs home with HH RN, PT/OT vs SNF.
CM consult for moreira of Eliquis 5mg BID. CM called [facility] ([phone]). Patient does not have a co-pay. Cost is zero.
[2025-05-03] MEDS: LEXAPRO 20 MG PO (12:30)
--- NOTE | 2025-05-03 14:58 | PN.CDI ---
CDI
- -
CDI:
Physician Documentation Request
Admit Date: 05/02/25 00:08
Dear Doctor Kalli,
Please review the following and provide your response in the progress notes.
Clinical Indicators:
hawk missile air defense artillery, 05/03
#Current BW: (05/03) 155 lbs 6.814 oz BMI: 25.1 (overweight).
#...Weight history (03/18/24) 269 lbs. This is a 42.4% BW loss over 13 months (significant).
#...meets AND and ASPEN criteria for severe protein calorie malnutrition of chronic illness
#...due to a loss of more than 20% BW in one year and
#...less than 75% of estimated nutrient needs met for over one month.
Based on the above information and your assessment, which of the following most accurately represents the patient's nutritional status?
Severe Protein Calorie Malnutrition of chronic illness
Other (please specify)
[place] Criteria (ACP Hospitalist 2017)
2 or more criteria must be present for either
non severe or severe malnutrition
Note that the criteria differs related to the
presence of an acute or chronic illness
Chronic Illness
Energy Intake Non Severe: <75% for >1 month
Severe: <75% for >1 month
Weight Loss Non Severe: 5% over 1 month
7.5% over 3 months
10% over 6 months
20% over 1 year
Severe: >5% over 1 month
>7.5% over 3 months
>10% over 6 months
>20% over 1 year
Body Fat Non Severe: Mild Loss
Severe: Severe Loss
Muscle Mass Non Severe: Mild Loss
Severe: Severe Loss
Use of terms such as suspected, likely, concern for, or probable (associated with a specific diagnosis that is being evaluated, monitored, or treated as if it exists) are acceptable and can be coded in the inpatient setting, when documented at the
time of discharge.
Thank you,
Radha Rodney RN BSN CCDS
CDI Specialist
Please contact via tiger text
Please use your independent medical judgment in providing your response.
--- NOTE | 2025-05-03 15:03 | PN.CDI ---
CDI
- -
CDI:
Physician Documentation Request
Admit Date: 05/02/25 00:08
Dear Doctor Kalli,
Please review the following and provide your response in the progress notes.
Clinical Indicators:
PN, 05/02
#LE swelling likely edema 2/2 hypoalbuminemia
#RLE confirmed DVT as noted on Venous duplex
#...hep gtt for now, avoiding Lovenox d/t mayra, eventual transition to DOAC
Please clarify which of the following accurately represents the acuity of the RLE DVT:
Acute RLE DVT
Acute on Chronic RLE DVT
Chronic RLE DVT
Other(please specify)
Use of terms such as suspected, likely, concern for, or probable (associated with a specific diagnosis that is being evaluated, monitored, or treated as if it exists) are acceptable and can be coded in the inpatient setting, when documented at the
time of discharge.
Thank you,
Radha Rodney RN BSN CCDS
CDI Specialist
Please contact via tiger text
Please use your independent medical judgment in providing your response.
--- NOTE | 2025-05-03 15:06 | PN.CDI ---
CDI
- -
CDI:
Physician Documentation Request
Admit Date: 05/02/25 00:08
Dear Doctor Kalli,
Please review the following and provide your response in the progress notes.
Current documentation includes a diagnosis of hypotension.
Clinical Indicators:
PN, 05/02
#Requiring low dose pressor support
#...- IMU admit
#...- fluid resuscitation with NS 100ml/hr + 20 kcl
Please clarify which of the following is the most likely etiology of the above symptoms and treatment rendered:
Hypovolemic shock - indicate if due to surgery, trauma or other etiology
Shock, unknown type
Hypotension - indicate type/etiology, such as idiopathic, neurogenic or orthostatic, post-procedural, postoperative, due to hemodialysis, chronic, drug induced (indicate drug), etc.
Hypotension - unknown type/etiology
Other(please specify)
Use of terms such as suspected, likely, concern for, or probable (associated with a specific diagnosis that is being evaluated, monitored, or treated as if it exists) are acceptable and can be coded in the inpatient setting, when documented at the
time of discharge.
Thank you,
Radha Rodney RN BSN CCDS
CDI Specialist
Please contact via tiger text
Please use your independent medical judgment in providing your response.
--- NOTE | 2025-05-03 15:10 | PN.CDI ---
CDI
- -
CDI:
Physician Documentation Request
Admit Date: 05/02/25 00:08
Dear Doctor Kalli,
Please review the following and provide your response in the progress notes.
Clinical Indicators:
Laboratory Tests
05/01/25 05/02/25 05/03/25
17:26 06:51 04:36
Hgb 11.7 L 9.5 L 8.5 L
Hct 33.2 L 28.3 L 24.7 L
Based on the above and your clinical assessment,please clarify the most likely condition/diagnosis evaluated, monitored and/or treated?
Acute blood loss anemia
Acute blood loss anemia with baseline chronic anemia (Specify type)
Anemia of chronic disease - indicate if neoplastic disease, CKD or other
Precipitous drop in hematocrit
Abnormal lab value, clinically insignificant
Other(please specify)
Use of terms such as suspected, likely, concern for, or probable (associated with a specific diagnosis that is being evaluated, monitored, or treated as if it exists) are acceptable and can be coded in the inpatient setting, when documented at the
time of discharge.
Thank you,
Radha Rodney RN BSN CCDS
CDI Specialist
Please contact via tiger text
Please use your independent medical judgment in providing your response.
[2025-05-03 15:34] LABS: APTT 134.9 Sec (23.4-35.0)
[2025-05-03] MEDS: DRISDOL (VITAMIN D2) 50000 UNITS PO (16:39)
[2025-05-03] MEDS: NSS with KCL 20 MEQ 1000 IV (16:40)
[2025-05-03 16:58] LABS: Blood Urea Nitrogen 15 mg/dl (7-17); Calcium 7.6 mg/dl (8.4-10.2); Carbon Dioxide 29 mmol/L (22-30); Chloride 100 mmol/L (98-107); Estimated Creatinine Clearance 45 ml/min; Glucose 208 mg/dl (70-99); Magnesium 2.0 mg/dl (1.6-2.3); Potassium 4.1 mmol/L (3.5-5.1); Sodium 130 mmol/L (135-145); eGFR 48.26
[2025-05-03] MEDS: VITAMIN B1 100 MG PO (20:51)
[2025-05-03] MEDS: ELIQUIS 10 MG PO (20:51)
[2025-05-03] MEDS: PEPCID 20 MG PO (20:53)
--- NOTE | 2025-05-03 22:59 | PTCARENOTE ---
Pt remains AAOx3, but drowsy. Denies complaints at this time. Heparin gtt d/c'd per MD orders. First dose eliquis given per DEC. Maintained on levo, see worklist for titrations. IVF maintained per MAR. Pt able to take medications whole in applesauce
without complications. Call merino within reach. Care ongoing.
[2025-05-04] VITALS (49 sets, daily range): BP systolic 83–109; BP diastolic 48–81; PULSE 62–63; O2SAT 99; BMI 25.9
[2025-05-04] MEDS: NSS with KCL 20 MEQ 1000 IV (04:02)
[2025-05-04] MEDS: FLEXBUMIN 100 IV (04:05)
[2025-05-04 04:25] LABS: Hematocrit 23.4 % (37.0-47.0); Hemoglobin 7.9 g/dL (12.0-16.0); Mean Corp Hgb Conc. 33.8 g/dL (33.0-37.0); Mean Corpuscular Volume 90.0 fL (81.0-99.0); Platelet Count 287 10^3/uL (130-400); Red Cell Dist. Width 17.5 % (11.5-14.5)
[2025-05-04 04:49] LABS: ALT (SGPT) 17 U/L (0-35); AST (SGOT) 16 U/L (14-36); Albumin 3.0 g/dl (3.5-5.0); Alkaline Phosphatase 97 U/L (38-126); Blood Urea Nitrogen 13 mg/dl (7-17); Calcium 8.1 mg/dl (8.4-10.2); Carbon Dioxide 28 mmol/L (22-30); Chloride 103 mmol/L (98-107); Estimated Creatinine Clearance 45 ml/min; Glucose 118 mg/dl (70-99); Magnesium 1.9 mg/dl (1.6-2.3); Potassium 4.3 mmol/L (3.5-5.1); Sodium 134 mmol/L (135-145); Total Protein 4.8 g/dl (6.3-8.2); eGFR 48.26
[2025-05-04] MEDS: LR 1000 IV ×2 (06:36→17:08)
[2025-05-04] MEDS: LEVOPHED 250 IV (06:43)
[2025-05-04] MEDS: ELIQUIS 10 MG PO ×2 (09:11→19:21)
[2025-05-04] MEDS: LEXAPRO 20 MG PO (09:11)
[2025-05-04] MEDS: PROTONIX 40 MG PO (09:11)
[2025-05-04] MEDS: THERAGRAN 1 TABLET PO (09:11)
[2025-05-04] MEDS: KCL ELIXIR 40 MEQ PO (09:11)
[2025-05-04] MEDS: VITAMIN B1 100 MG PO ×2 (09:11→19:21)
--- NOTE | 2025-05-04 09:41 | W.PN.HOSP.TC ---
Today's Communication/Plan
-
wean pressor support as tolerated
midodrine increased to 5 mg TID
IVF switched to LR
PT/OT
Eliquis
monitor H&H
Assessment / Plan
Assessment / Plan
Physical Exam
General: No acute distress, appears comfortable at this time.
HEENT: NormoCephalic, Moist mucous membranes and Atraumatic
Respiratory: Clear to auscultation b/l, stable respiratory status on room air
Cardiac: S1/S2 and Regular Rhythm; No Murmur or Rub
GI: Soft, Non Tender, Non Distended and Normal Bowel Sounds; No Organomegaly
Musculoskeletal: +1 pitting edema lower ext's b/l
Skin: No Rash
Neuro: AO x 3 Conversant coherent
Psych: Calm
55F anxiety/depression, hyperlipidemia, history of diabetes and hx obesity significant wt loss following gastric bypass and Mounjaro treatment since developed intermittent nausea vomiting trouble with p.o. intake and episodes of diarrhea for past
month. Profound weakness, ED eval significant for hyponatremia, hypokalemia, and KAREN. Venous Doppler evaluation LE's would also find acute DVT RLE.
PLAN:
# Hyponatremia low BPs, h/o weightloss and poor po intake. Suspect hypovolemic hyponatremia. TSH wnl. KAREN. Denies diuretics. On lexapro.
#Requiring low dose pressor support, Hypovolemic shock suspect d/t poor oral intake, malnourishment, hypoalbuminemia
#Severe Protein Calorie Malnutrition of chronic illness
- IMU admit
- fluid resuscitation with NS 100ml/hr + 20 kcl, hypokalemia since resolved, IVF switched to LR
- urine osm and sodium
- am cortisol wnl
- nephrology consult appreciated
-wean pressor support as tolerated
-IV albumin infusions
-Scheduled Midodrine w/ holding parameters started titrated up to 5 mg TID
-Multivitamin, thiamine supplementation
-nutrition eval appreciated
# Hypokalemia w/ metabolic alkalosis- Hypokalemia, alkalosis suggest GI losses or diuretic use surreptitiously. Denies etoh. Again h/o weight loss and poor oral intake.
#mild hypophosphatemia
#QT prolongation
- monitor and replete K as necessary
- Neutra-phos Powder Packets [facility]
- QT prolongation since improved
- Mg supplemented
- vbg relatively unremarkable
- cont case monitor
- minimize use QT prolonging medications
#Likely anemia of chronic disease
Possible hemodilution contributing to current anemia, on IVF
monitor H&H, Type and screen
# KAREN - Prerenal azotemia suspected. Hypoalbuminemia
#Suspect underlying CKD III
- iv fluids as above
- monitor i/os
-nephro eval
-Cr improved since admission, initial 1.7 trended down
#N/V/Weightloss - Unclear if functional. Hx of significant GI outpatient w/u
- antiemetics prn compazine (QT prolongation improved), Tigan
- nutritional supplementation
- GI consult appreciated
#LE swelling likely edema 2/2 hypoalbuminemia
#Probable Acute RLE DVT noted on Venous Duplex
avoided Lovenox d/t karen
hep gtt to transition to Eliquis 10 mg BID 7 days loading dose started evening 05/03 to cont through 05/10 morning then reduce to maintenance dose 5 mg BID
# Patchy lingula opacity. No cough, wheezing, sob or hypoxia. Afebrile
- no abx indicated, monitor
PT/OT appreciated SNF rehab
DVT PPX - Eliquis
Code status - Full Code
Discussed with patient and patient's sister Tish
I spent a total of 45 minutes with the patient or on the floor. More than 50% of this time involved counseling and coordination of care.
Anticipated Discharge: > 48 hours
Subjective/Interval History
-
Date of Service: May 04, 2025
Seen and examined at bedside in no acute distress sitting up comfortably bed. Overall reports feeling well. Tolerating diet, limited by lack of dentures.
Objective Data
-
Labs:
Laboratory Results
05/04/25
04:13
WBC 10.1
Hgb 7.9 L
Hct 23.4 L
Plt Count 287
Sodium 134 L
Potassium 4.3
Chloride 103
Carbon Dioxide 28
BUN 13
Creatinine 1.3 H
Glucose 118 H
Calcium 8.1 L
Total Bilirubin 1.2
AST 16
ALT 17
Alkaline Phosphatase 97
Vital Signs:
Vital Signs
Temp Pulse Resp BP Pulse Ox
98.0 F 63 14 92/61 99
05/04/25 07:25 05/04/25 09:00 05/04/25 09:00 05/04/25 09:10 05/04/25 09:00
I&O
05/03/25 05/04/25 05/05/25
06:59 06:59 06:59
Intake Total 2410 / 2410 2940 / 2940
Output Total 600 / 600 225 / 225
Balance 1810 / 1810 2715 / 2715
--- NOTE | 2025-05-04 10:11 | PTCARENOTE ---
Pt received from material handler 1st shift RN. She is Ox3 and appropriate, slightly drowsy this morning but quickly perked up. NSR on tele. Generalized edema, trace in the R arm, +2 in the L arm, +2 in the LLE and +3 in the RLE. She is 100% on RA. Urinating
without issue. She feels that her appetite iis better but still has room for improvement. She has been a one person assist to get onto the [facility], had a BM last night. R DL PICC intact. Pt makes needs known.
--- NOTE | 2025-05-04 10:50 | W.PN.NEPH.PH ---
Today's Communication / Plan
-
Continue LR
Assessment/Plan
-
Impression:
KAREN
CKD 3a (1.4)
Hyponatremia
Hypokalemia
Metabolic alkalosis
Hypoalbuminemia
Admission for nausea vomiting/ weightloss
Plan:
-Concur with IV fluid resuscitation and electrolyte replacement K
-Suspect acute kidney injury is likely prerenally mediated in setting of hypoalbuminemia and compromised volume status
- albumin support discontinue
-Hypokalemia normalized
-recheck UA, urine sodium and urine creatinine= consistent with decreased effective arterial blood volume
Creatinine stable at 1.3 based
Midodrine
Remains on low-dose Levophed
On standing order of potassium
Continue LR
-
-
Date of Service: May 04, 2025
CC / HPI / ROS
-
Chief Complaint:
Acute kidney injury
History of Present Illness:
Acute kidney injury on CKD failure to thrive decreased p.o. intake hypoalbuminemia
Review of Systems:.
No chest pain or shortness of breath
Labs
-
Labs:
WBC 10.1 10^3/uL (4.8-10.8) 05/04/25 04:13
RBC 2.60 10^6/uL (4.20-5.40) L 05/04/25 04:13
Plt Count 287 10^3/uL (130-400) 05/04/25 04:13
Sodium 134 mmol/L (135-145) L 05/04/25 04:13
Potassium 4.3 mmol/L (3.5-5.1) 05/04/25 04:13
Chloride 103 mmol/L (98-107) 05/04/25 04:13
Carbon Dioxide 28 mmol/L (22-30) 05/04/25 04:13
BUN 13 mg/dl (7-17) 05/04/25 04:13
Creatinine 1.3 mg/dL (0.6-1.0) H 05/04/25 04:13
eGFR 48.26 05/04/25 04:13
Glucose 118 mg/dl (70-99) H 05/04/25 04:13
Calcium 8.1 mg/dl (8.4-10.2) L 05/04/25 04:13
Phosphorus 2.4 mg/dl (2.5-4.5) L 05/04/25 04:13
Albumin 3.0 g/dl (3.5-5.0) L 05/04/25 04:13
Physical Exam
-
Vital Signs:
Vital Signs
Temp Pulse Resp BP Pulse Ox
98.0 F 63 14 92/61 99
05/04/25 07:25 05/04/25 09:00 05/04/25 09:00 05/04/25 09:10 05/04/25 09:00
Respiratory:: Bilateral: CTA
Lung Excursion:: Normal
Abdomen:: Soft
Bowel Sounds:: Normal
Extremity Edema:: +1: Bilateral:
Vega Catheter: No
[2025-05-04] MEDS: NEUTRA-PHOS POWDER PACKET 250 MG PO ×4 (11:03→21:07)
[2025-05-04 11:04] LABS: Hematocrit 24.3 % (37.0-47.0); Hemoglobin 8.2 g/dL (12.0-16.0)
[2025-05-04] MEDS: NON-FORMULARY ITEM 2 MG PO (17:08)
--- NOTE | 2025-05-04 19:05 | VATNOTE ---
called due to picc line somewhat kinked and pump occluding. Pt bending right arm and on the bend, the 4cm ecl is bending/kinking too. redirected picc and stat lock and redressed with 4cm ecl going different direction. PCN, Pat, at bedside while
this VAT RN redressed.
[2025-05-04] MEDS: PEPCID 20 MG PO (21:07)
--- NOTE | 2025-05-04 23:20 | PTCARENOTE ---
Levophed gtt maintained, unable to titrate down at this time d/t borderline SBPs. Will continue to assess throughout shift. Pt remains drowsy, but arouses to verbal stimuli. R duel lumen PICC maintained. IVF maintained. Call merino within reach. Care
ongoing
[2025-05-05] VITALS (46 sets, daily range): BP systolic 75–132; BP diastolic 49–91; BMI 28.0
[2025-05-05] MEDS: LR 1000 IV ×3 (02:53→22:25)
[2025-05-05 04:42] LABS: Hematocrit 23.6 % (37.0-47.0); Hemoglobin 7.9 g/dL (12.0-16.0); Mean Corp Hgb Conc. 33.5 g/dL (33.0-37.0); Mean Corpuscular Volume 90.8 fL (81.0-99.0); Platelet Count 257 10^3/uL (130-400); Red Cell Dist. Width 17.8 % (11.5-14.5)
[2025-05-05 05:05] LABS: ALT (SGPT) 16 U/L (0-35); AST (SGOT) 16 U/L (14-36); Albumin 2.6 g/dl (3.5-5.0); Alkaline Phosphatase 74 U/L (38-126); Blood Urea Nitrogen 13 mg/dl (7-17); Calcium 8.1 mg/dl (8.4-10.2); Carbon Dioxide 28 mmol/L (22-30); Chloride 104 mmol/L (98-107); Estimated Creatinine Clearance 51 ml/min; Glucose 84 mg/dl (70-99); Magnesium 1.6 mg/dl (1.6-2.3); Potassium 4.8 mmol/L (3.5-5.1); Sodium 132 mmol/L (135-145); Total Protein 4.3 g/dl (6.3-8.2); eGFR 48.26
[2025-05-05 05:35] LABS: Cortisol, Random 9.2 ug/dl
--- NOTE | 2025-05-05 07:25 | W.PN.HOSP.TC ---
Today's Communication/Plan
-
wean pressor as tolerated
Midodrine titrated up to 10 mg TID
Albumin supplementation
cont Eliquis loading dose
monitor H&H
Neutra-phos completed monitor off
PT/OT
Assessment / Plan
Assessment / Plan
Physical Exam
General: No acute distress, appears comfortable at this time.
HEENT: NormoCephalic, Moist mucous membranes and Atraumatic
Respiratory: Clear to auscultation b/l, stable respiratory status on room air
Cardiac: S1/S2 and Regular Rhythm; No Murmur or Rub
GI: Soft, Non Tender, Non Distended and Normal Bowel Sounds; No Organomegaly
Musculoskeletal: +1 pitting edema lower ext's b/l
Skin: No Rash
Neuro: AO x 3 Conversant coherent
Psych: Calm
55F anxiety/depression, hyperlipidemia, history of diabetes and hx obesity significant wt loss following gastric bypass and Mounjaro treatment since developed intermittent nausea vomiting trouble with p.o. intake and episodes of diarrhea for past
month. Profound weakness, ED eval significant for hyponatremia, hypokalemia, and KAREN. Venous Doppler evaluation LE's would also find acute DVT RLE.
PLAN:
# Hyponatremia low BPs, h/o weightloss and poor po intake. Suspect hypovolemic hyponatremia. TSH wnl. KAREN. Denies diuretics. On lexapro.
#Requiring low dose pressor support, Hypovolemic shock suspect d/t poor oral intake, malnourishment, hypoalbuminemia
#Severe Protein Calorie Malnutrition of chronic illness
- IMU admit
- fluid resuscitation with NS 100ml/hr + 20 kcl, hypokalemia since resolved, IVF switched to LR
- urine osm and sodium
- am cortisol wnl x2
- nephrology consult appreciated
- wean pressor support as tolerated
- IV albumin infusions
- Scheduled Midodrine w/ holding parameters started titrated up to 10 mg TID
- Multivitamin, thiamine supplementation
- nutrition eval appreciated
# Hypokalemia w/ metabolic alkalosis- Hypokalemia, alkalosis suggest GI losses or diuretic use surreptitiously. Denies etoh. Again h/o weight loss and poor oral intake.
#mild hypophosphatemia
#QT prolongation
- monitor and replete K as necessary
- Mg supplemented
- QT prolongation since improved
- Neutra-phos Powder Packets [facility] completed monitor off
- vbg relatively unremarkable
- cont trawl net maker
- minimize use QT prolonging medications
#Likely anemia of chronic disease
Possible hemodilution contributing to current anemia, on IVF
monitor H&H, Type and screen
# KAREN - Prerenal azotemia suspected. Hypoalbuminemia
#Suspect underlying CKD III
- iv fluids as above
- monitor i/os
-nephro eval
-Cr improved since admission, initial 1.7 trended down
#N/V/Weightloss - Unclear if functional. Hx of significant GI outpatient w/u
- antiemetics prn compazine (QT prolongation improved), Tigan
- nutritional supplementation
- GI consult appreciated
#LE swelling likely edema 2/2 hypoalbuminemia
#Probable Acute RLE DVT noted on Venous Duplex
avoided Lovenox d/t karen
hep gtt to transition to Eliquis 10 mg BID 7 days loading dose started evening 05/03 to cont through 05/10 morning then reduce to maintenance dose 5 mg BID
# Patchy lingula opacity. No cough, wheezing, sob or hypoxia. Afebrile
- no abx indicated
-outpt follow CXR
PT/OT appreciated SNF rehab
DVT PPX - Eliquis
Code status - Full Code
Discussed with patient and patient's sister Tish
I spent a total of 45 minutes with the patient or on the floor. More than 50% of this time involved counseling and coordination of care.
Anticipated Discharge: > 48 hours
Subjective/Interval History
-
Date of Service: May 05, 2025
No acute distress, sitting up comfortably in chair. Denies new acute issues at this time.
Objective Data
-
Labs:
Laboratory Results
05/05/25 05/05/25
04:28 04:29
WBC 8.7
Hgb 7.9 L
Hct 23.6 L
Plt Count 257
Sodium 132 L
Potassium 4.8
Chloride 104
Carbon Dioxide 28
BUN 13
Creatinine 1.3 H
Glucose 84
Calcium 8.1 L
Total Bilirubin 1.1
AST 16
ALT 16
Alkaline Phosphatase 74
Vital Signs:
Vital Signs
Temp Pulse Resp BP Pulse Ox
98.1 F 67 15 95/59 99
05/05/25 03:00 05/05/25 06:30 05/05/25 06:30 05/05/25 06:30 05/04/25 20:21
I&O
05/04/25 05/05/25 05/06/25
06:59 06:59 06:59
Intake Total 2940 / 2940 1200 / 1200
Output Total 225 / 225 300 / 300
Balance 2715 / 2715 900 / 900
--- NOTE | 2025-05-05 09:57 | W.PN.NEPH.PH ---
Today's Communication / Plan
-
Follow BMP
Hyponatremia likely exacerbated by poor effective circulating volume and subsequent hemodynamic compromise
Assessment/Plan
-
Impression:
KAREN
CKD 3a (1.4)
Hyponatremia
Hypokalemia
Metabolic alkalosis
Hypoalbuminemia
Admission for nausea vomiting/ weightloss
Plan:
-Concur with IV fluid resuscitation and electrolyte replacement K
-Creatinine at baseline
-Sodium at baseline 132
-Suspect acute kidney injury is likely prerenally mediated in setting of hypoalbuminemia and compromised volume status
- albumin support discontinue
-Hypokalemia normalized
-rechecked UA, urine sodium and urine creatinine= consistent with decreased effective arterial blood volume
Creatinine stable at 1.3 based
Midodrine
Remains on low-dose Levophed
On standing order of potassium
Continue LR
-
-
Date of Service: May 05, 2025
CC / HPI / ROS
-
Chief Complaint:
Acute kidney injury
History of Present Illness:
Acute kidney injury on CKD failure to thrive decreased p.o. intake hypoalbuminemia
Creatinine down to 1 point 3
Sodium up to 132
Review of Systems:.
Urine output recorded at 300 cc
No chest pain or shortness of breath
Weights
Labs
-
Labs:
WBC 8.7 10^3/uL (4.8-10.8) 05/05/25 04:29
RBC 2.60 10^6/uL (4.20-5.40) L 05/05/25 04:29
Hgb 7.9 g/dL (12.0-16.0) L 05/05/25 04:29
Hct 23.6 % (37.0-47.0) L 05/05/25 04:29
Plt Count 257 10^3/uL (130-400) 05/05/25 04:29
Sodium 132 mmol/L (135-145) L 05/05/25 04:28
Potassium 4.8 mmol/L (3.5-5.1) 05/05/25 04:28
Chloride 104 mmol/L (98-107) 05/05/25 04:28
Carbon Dioxide 28 mmol/L (22-30) 05/05/25 04:28
BUN 13 mg/dl (7-17) 05/05/25 04:28
Creatinine 1.3 mg/dL (0.6-1.0) H 05/05/25 04:28
eGFR 48.26 05/05/25 04:28
Glucose 84 mg/dl (70-99) 05/05/25 04:28
Calcium 8.1 mg/dl (8.4-10.2) L 05/05/25 04:28
Phosphorus 3.1 mg/dl (2.5-4.5) 05/05/25 04:28
Albumin 2.6 g/dl (3.5-5.0) L 05/05/25 04:28
Physical Exam
-
Vital Signs:
Vital Signs
Temp Pulse Resp BP Pulse Ox
98.4 F 71 16 93/64 94
05/05/25 07:32 05/05/25 08:33 05/05/25 08:53 05/05/25 08:33 05/05/25 08:53
Respiratory:: Bilateral: CTA
Lung Excursion:: Normal
Abdomen:: Soft
Bowel Sounds:: Normal
Extremity Edema:: +1: Bilateral:
Vega Catheter: No
[2025-05-05] MEDS: VITAMIN B1 100 MG PO ×2 (10:58→19:57)
[2025-05-05] MEDS: THERAGRAN 1 TABLET PO (10:58)
[2025-05-05] MEDS: LEXAPRO 20 MG PO (10:58)
[2025-05-05] MEDS: ELIQUIS 10 MG PO ×2 (10:58→19:57)
[2025-05-05] MEDS: PROTONIX 40 MG PO (10:58)
[2025-05-05] MEDS: NON-FORMULARY ITEM 2 MG PO (10:59)
[2025-05-05] MEDS: NEUTRA-PHOS POWDER PACKET 250 MG PO (11:03)
[2025-05-05] MEDS: FLEXBUMIN 100 IV ×2 (12:13→19:58)
[2025-05-05] MEDS: LEVOPHED 250 IV (14:50)
--- NOTE | 2025-05-05 15:08 | PTCARENOTE ---
Pt still requires levo for SBP > 90, oob to chair for breakfast and lunch. She ate 25% of her lunch, voiding via commode. She is oriented x3 this shift, denies any pain. See MAR/flowsheets for further care details.
--- NOTE | 2025-05-05 16:26 | CM ---
Patient with Dx Hyponatremia, hypokalemia, KAREN, N/V/Weight loss, Probable Acute RLE DVT. Room air. Receiving IVF, Levophed gtt. Regular diet. PT/OT recommend skilled rehab. Per nurse; A/O.
Spoke with patient and Nilton; both are interested in short term SNF for rehab. Provided SNF list at bedside- coming in today and will review/select some facilities of interest.
Plan follow up with patient/huband tomorrow for SNF preferences.
--- NOTE | 2025-05-05 20:00 | PTCARENOTE ---
Resumed care of pt laying in bed sleeping. Pt arousable to voice, AAOx3. HR in the high 50's' SB on the monitor. POX 98% on RA. Lungs dec t/o. Hypo bowel, round abd. +3 pitting B/L LE edema. weak peripheral pulses present. Pale skin. +1 B/L UE
edema. Pt denies any complaints of pain or discomfort. Right dual picc in place infusing LR @100ml/hr and Levophed to keep SBP >90. Pt positioned per comfort. Call merino in reach. Will continue to monitor.
[2025-05-05] MEDS: PEPCID 20 MG PO (22:25)
[2025-05-06] VITALS (53 sets, daily range): BP systolic 78–124; BP diastolic 49–92; BMI 28.7
[2025-05-06] MEDS: FLEXBUMIN 100 IV (04:23)
[2025-05-06 04:26] LABS: Hematocrit 21.9 % (37.0-47.0); Hemoglobin 7.6 g/dL (12.0-16.0); Mean Corp Hgb Conc. 34.7 g/dL (33.0-37.0); Mean Corpuscular Volume 90.1 fL (81.0-99.0); Platelet Count 242 10^3/uL (130-400); Red Cell Dist. Width 17.6 % (11.5-14.5)
[2025-05-06 04:54] LABS: ALT (SGPT) 14 U/L (0-35); AST (SGOT) 16 U/L (14-36); Albumin 2.7 g/dl (3.5-5.0); Alkaline Phosphatase 72 U/L (38-126); Blood Urea Nitrogen 14 mg/dl (7-17); Calcium 8.1 mg/dl (8.4-10.2); Carbon Dioxide 28 mmol/L (22-30); Chloride 104 mmol/L (98-107); Estimated Creatinine Clearance 48 ml/min; Glucose 85 mg/dl (70-99); Magnesium 1.6 mg/dl (1.6-2.3); Potassium 4.8 mmol/L (3.5-5.1); Sodium 133 mmol/L (135-145); Total Protein 4.3 g/dl (6.3-8.2); eGFR 44.16
--- NOTE | 2025-05-06 06:50 | W.PN.HOSP.TC ---
Addendum entered and electronically signed by Ziyad Mahan MD 05/07/25 12:43:
[phone] fax discharge/packet summary attn to primary care provider Dr Cassius Cruz when patient is discharged (For future references, ostensibly not stable for discharge while requiring pressor support).
Original Note:
Today's Communication/Plan
-
wean levophed as tolerated
cont midodrine
1PRBC transfusion
PT/OT
CT chest/abd/pelvis oral contrast only
Venous duplex upper ext's
Assessment / Plan
Assessment / Plan
Physical Exam
General: No acute distress, appears comfortable at this time. Anasarca swelling upper and lower ext's
HEENT: NormoCephalic, Moist mucous membranes and Atraumatic
Respiratory: Clear to auscultation b/l, stable respiratory status on room air
Cardiac: S1/S2 and Regular Rhythm; No Murmur or Rub
GI: Soft, Non Tender, Non Distended and Normal Bowel Sounds; No Organomegaly
Musculoskeletal: +1 pitting edema lower ext's b/l
Skin: No Rash
Neuro: AO x 3 Conversant coherent
Psych: Calm
55F anxiety/depression, hyperlipidemia, history of diabetes and hx obesity significant wt loss following gastric bypass and Mounjaro treatment since developed intermittent nausea vomiting trouble with p.o. intake and episodes of diarrhea for past
month. Profound weakness, ED eval significant for hyponatremia, hypokalemia, and KAREN. Venous Doppler evaluation LE's would also find acute DVT RLE.
PLAN:
# Hyponatremia low BPs, h/o weightloss and poor po intake. Suspect hypovolemic hyponatremia. TSH wnl. KAREN. Denies diuretics. On lexapro.
#Requiring low dose pressor support, Hypovolemic shock suspect d/t poor oral intake, malnourishment, hypoalbuminemia
#Severe Protein Calorie Malnutrition of chronic illness
- IMU admit
- fluid resuscitation with NS 100ml/hr + 20 kcl, hypokalemia since resolved, IVF switched to LR
- urine osm and sodium
- am cortisol wnl x2
- nephrology consult appreciated
- wean pressor support as tolerated
- IV albumin infusions
- Scheduled Midodrine w/ holding parameters started titrated up to 10 mg TID
- Multivitamin, thiamine supplementation
- nutrition eval appreciated
-CT Chest/abd/pelvis w/ oral contrast (no IV d/t karen) 3rd spacing b/l moderate pleural effusion anasarca, severe fatty liver disease
# Hypokalemia w/ metabolic alkalosis- Hypokalemia, alkalosis suggest GI losses or diuretic use surreptitiously. Denies etoh. Again h/o weight loss and poor oral intake.
#mild hypophosphatemia
#QT prolongation
- monitor and replete K as necessary
- Mg supplemented
- QT prolongation since improved
- Neutra-phos Powder Packets [facility] completed monitor off
- vbg relatively unremarkable
- cont potline monitor
- minimize use QT prolonging medications
#Likely anemia of chronic disease
Possible hemodilution contributing to current anemia, on IVF
monitor H&H, Type and screen
1PRBC given for Hgb 7.6 slow trend down, follow up post-transfusion CBC w/ am labs
# KAREN - Prerenal azotemia suspected. Hypoalbuminemia
#Suspect underlying CKD III
- iv fluids as above
- monitor i/os
-nephro eval
-Cr improved since admission, initial 1.7 trended down
#N/V/Weightloss - Unclear if functional. Hx of significant GI outpatient w/u
- antiemetics prn compazine (QT prolongation improved), Tigan
- nutritional supplementation
- GI consult appreciated
#upper and LE's swelling likely edema 2/2 hypoalbuminemia
#Probable Acute RLE DVT noted on Venous Duplex
avoided Lovenox d/t karen
hep gtt to transition to Eliquis 10 mg BID 7 days loading dose started evening 05/03 to cont through 05/10 morning then reduce to maintenance dose 5 mg BID
venous duplex upper ext's neg for dvt
# Patchy lingula opacity. No cough, wheezing, sob or hypoxia. Afebrile
- no abx indicated
-outpt follow CXR
PT/OT appreciated SNF rehab
DVT PPX - Eliquis
Code status - Full Code
Discussed with patient and patient's Nilton
I spent a total of 45 minutes with the patient or on the floor. More than 50% of this time involved counseling and coordination of care.
Anticipated Discharge: > 48 hours
Subjective/Interval History
-
Date of Service: May 06, 2025
No acute distress resting comfortably in bed. Overall reports feeling well. Continues to require low dose levophed intermittently
Objective Data
-
Labs:
Laboratory Results
05/06/25
04:10
WBC 8.7
Hgb 7.6 L
Hct 21.9 L
Plt Count 242
Sodium 133 L
Potassium 4.8
Chloride 104
Carbon Dioxide 28
BUN 14
Creatinine 1.4 H
Glucose 85
Calcium 8.1 L
Total Bilirubin 1.2
AST 16
ALT 14
Alkaline Phosphatase 72
Vital Signs:
Vital Signs
Temp Pulse Resp BP Pulse Ox
98.0 F 54 15 94/82 96
05/06/25 03:18 05/06/25 05:00 05/06/25 05:00 05/06/25 04:51 05/06/25 05:00
I&O
05/04/25 05/05/25 05/06/25
06:59 06:59 06:59
Intake Total 2940 / 2940 1200 / 1200 3280 / 3280
Output Total 225 / 225 300 / 300
Balance 2715 / 2715 900 / 900 3280 / 3280
[2025-05-06] MEDS: PROTONIX 40 MG PO (09:28)
[2025-05-06] MEDS: ELIQUIS 10 MG PO ×2 (09:28→20:52)
[2025-05-06] MEDS: LEXAPRO 20 MG PO (09:29)
[2025-05-06] MEDS: THERAGRAN 1 TABLET PO (09:29)
[2025-05-06] MEDS: VITAMIN B1 100 MG PO ×2 (09:29→20:52)
[2025-05-06] MEDS: NON-FORMULARY ITEM 2 MG PO (09:32)
[2025-05-06] MEDS: LR 1000 IV ×2 (09:40→21:00)
[2025-05-06] MEDS: OMNIPAQUE 50 ML PO (10:58)
--- NOTE | 2025-05-06 11:03 | CM ---
Met with patient and her sons at the bedside; list of SNF options provided; she and her sons will review and identify preferences by later today or tomorrow.
Plan: Discharge to SNF when medically stable pending bed availability
[2025-05-06] MEDS: KLONOPIN 0.5 MG PO (11:29)
--- NOTE | 2025-05-06 12:20 | W.PN.NEPH.PH ---
Today's Communication / Plan
-
Sign off
Assessment/Plan
-
Impression:
KAREN
CKD 3a (1.4)
Hyponatremia
Hypokalemia
Metabolic alkalosis
Hypoalbuminemia
Admission for nausea vomiting/ weightloss
Plan:
-Creatinine stable at baseline 1.4
-Sodium up to 133
-anemia continues to worsen
-we will sign off for now
-Suspect acute kidney injury is likely prerenally mediated in setting of hypoalbuminemia and compromised volume status
- albumin support discontinue
-rechecked UA, urine sodium and urine creatinine= consistent with decreased effective arterial blood volume
Midodrine prn for hypotension
Remains on low-dose Levophed
On standing order of potassium
Continue LR
-
-
Date of Service: May 06, 2025
CC / HPI / ROS
-
Chief Complaint:
Acute kidney injury
History of Present Illness:
Acute kidney injury on CKD failure to thrive decreased p.o. intake hypoalbuminemia
Creatinine down to 1.4
Sodium up to 133
Review of Systems:.
Urine output recorded at 300 cc
No chest pain or shortness of breath
Weights up
Labs
-
Labs:
WBC 8.7 10^3/uL (4.8-10.8) 05/06/25 04:10
RBC 2.43 10^6/uL (4.20-5.40) L 05/06/25 04:10
Hgb 7.6 g/dL (12.0-16.0) L 05/06/25 04:10
Hct 21.9 % (37.0-47.0) L 05/06/25 04:10
Plt Count 242 10^3/uL (130-400) 05/06/25 04:10
Sodium 133 mmol/L (135-145) L 05/06/25 04:10
Potassium 4.8 mmol/L (3.5-5.1) 05/06/25 04:10
Chloride 104 mmol/L (98-107) 05/06/25 04:10
Carbon Dioxide 28 mmol/L (22-30) 05/06/25 04:10
BUN 14 mg/dl (7-17) 05/06/25 04:10
Creatinine 1.4 mg/dL (0.6-1.0) H 05/06/25 04:10
eGFR 44.16 05/06/25 04:10
Glucose 85 mg/dl (70-99) 05/06/25 04:10
Calcium 8.1 mg/dl (8.4-10.2) L 05/06/25 04:10
Phosphorus 3.2 mg/dl (2.5-4.5) 05/06/25 04:10
Albumin 2.7 g/dl (3.5-5.0) L 05/06/25 04:10
Physical Exam
-
Vital Signs:
Vital Signs
Temp Pulse Resp BP Pulse Ox
98.0 F 62 18 99/80 97
05/06/25 07:13 05/06/25 11:00 05/06/25 11:00 05/06/25 10:00 05/06/25 11:22
Respiratory:: Bilateral: CTA
Lung Excursion:: Normal
Abdomen:: Soft
Bowel Sounds:: Normal
Extremity Edema:: +1: Bilateral:
Vega Catheter: No
--- NOTE | 2025-05-06 15:52 | PTCARENOTE ---
Patient weaned off of levo drip. SBP's have remained greater then 95. Patient back from CT scan of abdomen and US of left arm. Currently transfusing one unit of PRBC's as per MD order. SB on monitor, spo2 99% RA, 100/61,56,17,afebrile. Will
continue to monitor frequently.
--- NOTE | 2025-05-06 18:15 | PTCARENOTE ---
Patient received one unit PRBC's without incident. IV fluids infusing as ordered.
[2025-05-06] MEDS: PEPCID 20 MG PO (20:52)
[2025-05-06] MEDS: LEVOPHED 250 IV (21:34)
--- NOTE | 2025-05-06 21:55 | PTCARENOTE ---
Assumed care of pt at aprox 1900. Pt BP running low. 87/67, 83/59. Levo restarted at 2145 at 2mcg/min through right PICC. Heart rate faheem in the 50's. Pt with no c/o of pain.
[2025-05-07] VITALS (59 sets, daily range): BP systolic 83–120; BP diastolic 49–75; BMI 29.4
[2025-05-07 05:54] LABS: Hematocrit 27.3 % (37.0-47.0); Hemoglobin 9.3 g/dL (12.0-16.0); Mean Corp Hgb Conc. 34.1 g/dL (33.0-37.0); Mean Corpuscular Volume 89.8 fL (81.0-99.0); Platelet Count 279 10^3/uL (130-400); Red Cell Dist. Width 17.5 % (11.5-14.5)
[2025-05-07 06:08] LABS: ALT (SGPT) 16 U/L (0-35); AST (SGOT) 20 U/L (14-36); Albumin 2.7 g/dl (3.5-5.0); Alkaline Phosphatase 85 U/L (38-126); Blood Urea Nitrogen 14 mg/dl (7-17); Calcium 8.3 mg/dl (8.4-10.2); Carbon Dioxide 27 mmol/L (22-30); Chloride 104 mmol/L (98-107); Estimated Creatinine Clearance 49 ml/min; Glucose 89 mg/dl (70-99); HDL Cholesterol 12 mg/dl; LDL Cholesterol, Calculated 25 mg/dl; Magnesium 1.5 mg/dl (1.6-2.3); Potassium 4.6 mmol/L (3.5-5.1); Sodium 133 mmol/L (135-145); Total Protein 4.4 g/dl (6.3-8.2); Very Low Density Lipoprotein 17 mg/dl (0-30); eGFR 44.16
[2025-05-07] MEDS: LR 1000 IV ×2 (06:14→16:38)
--- NOTE | 2025-05-07 08:35 | W.PN.HOSP.TC ---
Today's Communication/Plan
-
see a/p
Assessment / Plan
Assessment / Plan
Physical Exam
General: No acute distress, appears comfortable at this time. Anasarca swelling upper and lower ext's
HEENT: NormoCephalic, Moist mucous membranes and Atraumatic
Respiratory: Clear to auscultation b/l, stable respiratory status on room air
Cardiac: S1/S2 and Regular Rhythm; No Murmur or Rub
GI: Soft, Non Tender, Non Distended and Normal Bowel Sounds; No Organomegaly
Musculoskeletal: +1 pitting edema upper and lower ext's b/l
Skin: No Rash
Neuro: AO x 3 Conversant coherent
Psych: Calm
55F anxiety/depression, hyperlipidemia, history of diabetes and hx obesity significant wt loss following gastric bypass and Mounjaro treatment since developed intermittent nausea vomiting trouble with p.o. intake and episodes of diarrhea for past
month. Profound weakness, ED eval significant for hyponatremia, hypokalemia, and KAREN. Venous Doppler evaluation LE's would also find acute DVT RLE.
PLAN:
# Hyponatremia low BPs, h/o weightloss and poor po intake. Suspect hypovolemic hyponatremia. TSH wnl. KAREN. Denies diuretics. On lexapro.
#Requiring low dose pressor support, Hypovolemic shock suspect d/t poor oral intake, malnourishment, hypoalbuminemia
#Severe Protein Calorie Malnutrition of chronic illness
- IMU admit
- fluid resuscitation with NS 100ml/hr + 20 kcl, hypokalemia since resolved, IVF switched to LR
- urine osm and sodium
- am cortisol wnl x2
- nephrology consult appreciated
- wean pressor support as tolerated
- IV albumin infusions
- Scheduled Midodrine w/ holding parameters started titrated up to 10 mg TID
- Multivitamin, thiamine supplementation
- nutrition eval appreciated
-CT Chest/abd/pelvis w/ oral contrast (no IV d/t karen) 3rd spacing b/l moderate pleural effusion anasarca, severe fatty liver disease
-Endocrine eval appreciated
# Hypokalemia w/ metabolic alkalosis- Hypokalemia, alkalosis suggest GI losses or diuretic use surreptitiously. Denies etoh. Again h/o weight loss and poor oral intake.
#mild hypophosphatemia
#QT prolongation
- monitor and replete K as necessary
- Mg supplemented
- QT prolongation since improved
- Neutra-phos Powder Packets [facility] completed monitor off
- vbg relatively unremarkable
- cont medical sales consultant
- minimize use QT prolonging medications
#Likely anemia of chronic disease
Possible hemodilution contributing to current anemia, on IVF
monitor H&H, Type and screen
1PRBC given for Hgb 7.6 slow trend down, follow up post-transfusion CBC w/ am labs
# KAREN - Prerenal azotemia suspected. Hypoalbuminemia
#Suspect underlying CKD III
- iv fluids as above
- monitor i/os
-nephro eval
-Cr improved since admission, initial 1.7 trended down
#N/V/Weightloss - Unclear if functional. Hx of significant GI outpatient w/u
- antiemetics prn compazine (QT prolongation improved), Tigan
- nutritional supplementation
- GI consult appreciated
#upper and LE's swelling likely edema 2/2 hypoalbuminemia
#Probable Acute RLE DVT noted on Venous Duplex
avoided Lovenox d/t karen
hep gtt to transition to Eliquis 10 mg BID 7 days loading dose started evening 05/03 to cont through 05/10 morning then reduce to maintenance dose 5 mg BID
venous duplex upper ext's neg for dvt
# Patchy lingula opacity. No cough, wheezing, sob or hypoxia. Afebrile
- no abx indicated
-outpt follow CXR
#Anxiety
cont Rexulti patient's own med
Klonopin BIDprn
Lexapro dose reduced as per psych
psych eval appreciated
PT/OT appreciated SNF rehab
DVT PPX - Eliquis
Code status - Full Code
Discussed with patient and patient's [place]
I spent a total of 45 minutes with the patient or on the floor. More than 50% of this time involved counseling and coordination of care.
When patient is discharged fax discharge/packet summary [phone] attn to primary care provider Dr Cassius Cruz
Anticipated Discharge: 24 - 48 hours
Subjective/Interval History
-
Date of Service: May 07, 2025
No acute distress, sitting up comfortably in bed, denies new acute issues.
Objective Data
-
Labs:
Laboratory Results
05/07/25
05:34
WBC 10.9 H
Hgb 9.3 L D
Hct 27.3 L
Plt Count 279
Sodium 133 L
Potassium 4.6
Chloride 104
Carbon Dioxide 27
BUN 14
Creatinine 1.4 H
Glucose 89
Calcium 8.3 L
Total Bilirubin 1.5 H
AST 20
ALT 16
Alkaline Phosphatase 85
Vital Signs:
Vital Signs
Temp Pulse Resp BP Pulse Ox
97.9 F 55 15 97/57 94
05/07/25 06:55 05/07/25 06:00 05/07/25 06:00 05/07/25 06:00 05/07/25 06:00
I&O
05/06/25 05/07/25 05/08/25
06:59 06:59 06:59
Intake Total 3280 / 3280 2165 / 2165 1200 / 1200
Balance 3280 / 3280 2165 / 2165 1200 / 1200
[2025-05-07] MEDS: NON-FORMULARY ITEM 2 MG PO (09:38)
[2025-05-07] MEDS: ELIQUIS 10 MG PO ×2 (09:40→19:57)
[2025-05-07] MEDS: PROTONIX 40 MG PO (09:41)
[2025-05-07] MEDS: THERAGRAN 1 TABLET PO (09:41)
[2025-05-07] MEDS: LEXAPRO 20 MG PO (09:42)
[2025-05-07] MEDS: VITAMIN B1 100 MG PO ×2 (09:42→19:57)
--- NOTE | 2025-05-07 11:13 | CARDSERVLU ---
Echocardiogram with Lumason completed after protocol screening completed. Allergies verified.
Patent IV site: _Rt upper arm PICC____
IV site flushed with 0.9% NaCl pre and post administration.
Diluted bolus method utilized to enhance visualization of ventricular brown.
Total volume given: _1.5___ mL
Patient tolerated all procedures well without complications.
[2025-05-07] MEDS: MAGNESIUM SULFATE 100 IV (11:19)
[2025-05-07] MEDS: FLEXBUMIN 100 IV ×2 (13:03→19:58)
--- NOTE | 2025-05-07 13:38 | CON.MD ---
Consultation - Medical
-
55 y.o. woman with history of gastric bypass surgery and 150 lb weight loss in the setting of initial Mounjaro use, but with continued weight loss and now development of protein calorie malnutrition, hypotension requiring levophed and midodrine, and
hyponatremia. History of opioid use and recent loss of teeth. Concern for adrenal insufficiency prompted 2 a.m. cortisols in the 9-10 range. We might expect higher cortisol levels in this setting of stress, low BP and illness, however her protein
levels are low and undoubtedly cortisol binding globulin levels as well. I would doubt the presence of adrenal insufficiency but without satisfactory explanation of why her presentation has evolved in this manner, I would recommend a cosyntropin
stimulation test. This is best performed in the morning with 0, 30 and 60 min cortisol samples taken. I will enter orders for tomorrow morning. Thanks and please call with questions.
--- NOTE | 2025-05-07 15:43 | CON.MD ---
Consultation - Medical
-
patient seen chart reviewed. this consult is being done today may 07 2025. the patient is a 55 year old woman who comes to er w cc of 150 lb weight loss dec appetite weakness balance issues gait abnormality can't climb stairs or easily get into
a car. she also c.o poor concentration. the patient has a long hx of depression and has taken lexapro for over for about 20 years. (it came on the market in 2001) she had taken ten and over the years grad inc to 20 mg. her geophysical e logger added rexulti 2 mg
about a month ago. she also takes klonopin o.5 mg bid inc recently to one mg bid. there was ? as to whether this was impairing her concentration. it was noted that sodium was low (133) and qtc was intially high now wnl. the patient has had a lot of
stress in her life but not really recently. her ex h dx with ms and they sep in 2016 and she has been w current h seven years. she has two kids who feel abandoned by their father but she says she is devoted to them. 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 sleep is fair. not much energy. she denies that she is deliberately restricting food in fact feels very underweight at present (5'6' 145 lbs. ) it is curious that she was surrounded by numerous snacks and
called h to bring her wonton soup and pork fried rice. she has never felt suicidal. there is nothing to suggest psychosis.
past psych see above has been on and off in therapy. as she is now with geophysical e logger. no hospitalizations
medical hx see above hx gastric bypass many years ago and more recent rx w kurtis. endo has ordered testing for adrenal insuf tomorrow. patient has required pressors to stimulate bp. . hx htn hld had been anemic secondary to b12 def now wnl. hx
gerd chronic pain hx cristian shoulder and eye durgery hx pneumonia gi bypass pancreatitis cholycystectomy breast reduction surgery and tummy tuck. tsh folate wnl. tox buprenorphine
substance abuse period of opiate abuse some years ago . went on buprenorphine . attended iop. had not been taking it lately says she but see tox screen
fh denied
social lives w second h two kids has + supportive friends see above re working hx for many years will ask patient tomorrow re early years trauma hx
mse alert ox3 x cooperative patient manner of speaking is rather slow..almost like a drawl without the southern accent. . thought process generally goal oriented although at times a bit rambling. mood is neutral affect a bit consticted no si
above aver intelligence insight judgment seem ok
dx unspecified depression hx opiate abuse in the distant past
recommendations the only thing i would change in her meds is would reduce the lexapro to 15 mg for now given low sodium and inc qtc on one of the ecg's need to follow both. i have to say it did cross my mind that this was an eating disorder given
that she was surrounded by food and ordering more. sometimes eating d/o patients become preoccuped with food although they do not necessarily eat it BUT it is premature to say that and would keep it in the back of the mind until workup completed.
would leave klonopin as prn. i don't think this is lexapro induced and the dose of klonopin is not huge. she did not seem particularly cognitively impaired to me. will check in w her tomorrow. will call her out pt ethan as she requeested philip
miguel [phone]
--- NOTE | 2025-05-07 18:45 | PTCARENOTE ---
Levo drip infusing at 1 mcg/3.8mls/hr. SBP have been in the low 90's. IV fluids infusing as ordered via right d/l PICC. Patient OOB to commode assistance x1. Patient is making an effort to eat more but appetite remains poor. Call merino in reach.
[2025-05-07] MEDS: PEPCID 20 MG PO (19:57)
[2025-05-08] VITALS (52 sets, daily range): BP systolic 83–129; BP diastolic 50–90; BMI 30.3
[2025-05-08] MEDS: LR 1000 IV ×2 (00:57→11:13)
[2025-05-08] MEDS: LR IV (02:31)
[2025-05-08] MEDS: FLEXBUMIN 100 IV (04:05)
[2025-05-08 04:12] LABS: Hematocrit 24.7 % (37.0-47.0); Hemoglobin 8.4 g/dL (12.0-16.0); Mean Corp Hgb Conc. 34.0 g/dL (33.0-37.0); Mean Corpuscular Volume 90.1 fL (81.0-99.0); Platelet Count 268 10^3/uL (130-400); Red Cell Dist. Width 17.6 % (11.5-14.5)
[2025-05-08 04:35] LABS: ALT (SGPT) 13 U/L (0-35); AST (SGOT) 17 U/L (14-36); Albumin 2.8 g/dl (3.5-5.0); Alkaline Phosphatase 67 U/L (38-126); Blood Urea Nitrogen 15 mg/dl (7-17); Calcium 8.6 mg/dl (8.4-10.2); Carbon Dioxide 25 mmol/L (22-30); Chloride 105 mmol/L (98-107); Estimated Creatinine Clearance 45 ml/min; Glucose 87 mg/dl (70-99); Magnesium 2.1 mg/dl (1.6-2.3); Potassium 4.3 mmol/L (3.5-5.1); Sodium 135 mmol/L (135-145); Total Protein 4.5 g/dl (6.3-8.2); eGFR 40.65
--- NOTE | 2025-05-08 05:39 | PTCARENOTE ---
increasing edema and over 5lb wt gain- unable to wean off levophed. was off for 30 minutes and sbp was under 90
--- NOTE | 2025-05-08 08:37 | W.PN.HOSP.TC ---
Today's Communication/Plan
-
wean pressor support as tolerated
cont midodrine 10 mg TID
encourage high protein diet
out of bed to chair, PT/OT
cont Eliquis
monitor H&H and renal function
Assessment / Plan
Assessment / Plan
Physical Exam
General: No acute distress, appears comfortable at this time. Anasarca swelling upper and lower ext's
HEENT: NormoCephalic, Moist mucous membranes and Atraumatic
Respiratory: Clear to auscultation b/l, stable respiratory status on room air
Cardiac: S1/S2 and Regular Rhythm; No Murmur or Rub
GI: Soft, Non Tender, Non Distended and Normal Bowel Sounds; No Organomegaly
Musculoskeletal: +1 pitting edema upper and lower ext's b/l
Skin: No Rash
Neuro: AO x 3 Conversant coherent
Psych: Calm
55F anxiety/depression, hyperlipidemia, history of diabetes and hx obesity significant wt loss following gastric bypass and Mounjaro treatment since developed intermittent nausea vomiting trouble with p.o. intake and episodes of diarrhea for past
month. Profound weakness, ED eval significant for hyponatremia, hypokalemia, and KAREN. Venous Doppler evaluation LE's would also find acute DVT RLE.
PLAN:
# Hyponatremia low BPs, h/o weightloss and poor po intake. Suspect hypovolemic hyponatremia. TSH wnl. KAREN. Denies diuretics. On lexapro.
#Requiring low dose pressor support, Hypovolemic shock suspect d/t poor oral intake, malnourishment, hypoalbuminemia
#Severe Protein Calorie Malnutrition of chronic illness
- IMU admit
- fluid resuscitation with NS 100ml/hr + 20 kcl, hypokalemia since resolved, IVF switched to LR
- urine osm and sodium
- am cortisol wnl x2
- nephrology consult appreciated
- wean pressor support as tolerated
- IV albumin infusions
- Scheduled Midodrine w/ holding parameters started titrated up to 10 mg TID
- Multivitamin, thiamine supplementation
- nutrition eval appreciated
-CT Chest/abd/pelvis w/ oral contrast (no IV d/t karen) 3rd spacing b/l moderate pleural effusion anasarca, severe fatty liver disease
-Endocrine eval appreciated adrenal insufficiency ruled out w/ cosyntropin test
# Hypokalemia w/ metabolic alkalosis- Hypokalemia, alkalosis suggest GI losses or diuretic use surreptitiously. Denies etoh. Again h/o weight loss and poor oral intake.
#mild hypophosphatemia
#QT prolongation
- monitor and replete K as necessary
- Mg supplemented
- QT prolongation since improved
- Neutra-phos Powder Packets [facility] completed monitor off
- initial vbg relatively unremarkable
- cont equipment monitor phototypesetting
- minimize use QT prolonging medications
#Likely anemia of chronic disease
Possible hemodilution contributing to current anemia, on IVF
05/06 1PRBC given for Hgb 7.6 slow trend down, good response noted
cont monitoring H&H
# KAREN - Prerenal azotemia suspected. Hypoalbuminemia
#Suspect underlying CKD III
- iv fluids as above
- monitor i/os
-nephro eval
-Cr improved since admission, initial 1.7 trended down
#N/V/Weightloss - Unclear if functional. Hx of significant GI outpatient w/u
- antiemetics prn compazine (QT prolongation improved), Tigan
- nutritional supplementation
- GI consult appreciated
#upper and LE's swelling likely edema 2/2 hypoalbuminemia
#Probable Acute RLE DVT noted on Venous Duplex
avoided Lovenox d/t karen
hep gtt to transition to Eliquis 10 mg BID 7 days loading dose started evening 05/03 to cont through 05/10 morning then reduce to maintenance dose 5 mg BID
venous duplex upper ext's neg for dvt
ECHO appreciated EF 55-60% no significant valve abn's
# Patchy lingula opacity. No cough, wheezing, sob or hypoxia. Afebrile
- no abx indicated
-outpt follow CXR
#Anxiety
cont Rexulti patient's own med
Klonopin BIDprn
Lexapro dose reduced to 15 mg daily as per psych
psych eval appreciated
PT/OT appreciated SNF rehab
DVT PPX - Eliquis
Code status - Full Code
Discussed with patient and patient's sister Tish
I spent a total of 45 minutes with the patient or on the floor. More than 50% of this time involved counseling and coordination of care.
When patient is discharged fax discharge/packet summary [phone] attn to primary care provider Dr Cassius Cruz
Anticipated Discharge: > 48 hours
Subjective/Interval History
-
Date of Service: May 08, 2025
No acute distress. Sitting up comfortably in bed. Stable respiratory status on room air. intermittently requiring low dose pressor support.
Objective Data
-
Labs:
Laboratory Results
05/08/25
04:03
WBC 9.9
Hgb 8.4 L
Hct 24.7 L
Plt Count 268
Sodium 135
Potassium 4.3
Chloride 105
Carbon Dioxide 25
BUN 15
Creatinine 1.5 H
Glucose 87
Calcium 8.6
Total Bilirubin 1.5 H
AST 17
ALT 13
Alkaline Phosphatase 67
Vital Signs:
Vital Signs
Temp Pulse Resp BP Pulse Ox
97.4 F 48 14 101/59 94
05/08/25 07:00 05/08/25 06:30 05/08/25 06:30 05/08/25 06:30 05/08/25 06:30
I&O
05/07/25 05/08/25 05/09/25
06:59 06:59 06:59
Intake Total 2165 / 2165 4855 / 4855
Output Total 600 / 600
Balance 2165 / 2165 4255 / 4255
[2025-05-08] MEDS: THERAGRAN 1 TABLET PO (08:39)
[2025-05-08] MEDS: LEXAPRO 15 MG PO (08:40)
[2025-05-08] MEDS: PROTONIX 40 MG PO (08:41)
[2025-05-08] MEDS: VITAMIN B1 100 MG PO ×2 (08:41→20:57)
[2025-05-08] MEDS: ELIQUIS 10 MG PO ×2 (08:41→20:57)
[2025-05-08] MEDS: NON-FORMULARY ITEM 2 MG PO (08:42)
[2025-05-08] MEDS: NSS (PRESERVATIVE FREE) 1 ML IV (09:36)
[2025-05-08] MEDS: CORTROSYN 0.25 MG IV (09:36)
[2025-05-08 10:03] LABS: ACTH Stim Cortisol 0 Min 8.4 ug/dl
[2025-05-08 11:30] LABS: ACTH Stim Cortisol 30 Min 19.6 ug/dl
[2025-05-08 12:30] LABS: ACTH Stim Cortisol 60 Min 20.6 ug/dl
--- NOTE | 2025-05-08 13:04 | W.PN.UPDATE ---
Update Note
Progress Note Update
patient seen chart reviewed. spoke with nursing son at bedside. also spoke with patient's out patient therapist informing her of patient's medical condition, workup being pursued and the change i had made in patient's lexapro which she was okay
about. i also expressed my concern to her re possible underlying eating d/o here. noted test results from cosyntropin stim test are borderline. noted patient is extremely ye and she has not been in sun. she said in her forties her previously pale
skin darkened (secondary to adrenal insufficiency???). i will not be making any further changes in patient's psych meds. will sign off at this point.
[2025-05-08] MEDS: PEPCID 20 MG PO (20:57)
[2025-05-09] VITALS (54 sets, daily range): BP systolic 79–125; BP diastolic 33–80; BMI 30.2
[2025-05-09 03:46] LABS: Hematocrit 26.5 % (37.0-47.0); Hemoglobin 8.8 g/dL (12.0-16.0); Mean Corp Hgb Conc. 33.2 g/dL (33.0-37.0); Mean Corpuscular Volume 92.0 fL (81.0-99.0); Platelet Count 294 10^3/uL (130-400); Red Cell Dist. Width 17.9 % (11.5-14.5)
[2025-05-09 04:11] LABS: ALT (SGPT) 14 U/L (0-35); AST (SGOT) 16 U/L (14-36); Albumin 2.9 g/dl (3.5-5.0); Alkaline Phosphatase 67 U/L (38-126); Blood Urea Nitrogen 16 mg/dl (7-17); Calcium 9.0 mg/dl (8.4-10.2); Carbon Dioxide 26 mmol/L (22-30); Chloride 107 mmol/L (98-107); Estimated Creatinine Clearance 46 ml/min; Glucose 88 mg/dl (70-99); Magnesium 2.1 mg/dl (1.6-2.3); Potassium 4.3 mmol/L (3.5-5.1); Sodium 135 mmol/L (135-145); Total Protein 4.7 g/dl (6.3-8.2); eGFR 40.65
--- NOTE | 2025-05-09 06:23 | PTCARENOTE ---
Patient found with clonazepam 1 mg pills that she dropped from her robe while going to the bedside commode. Pills brought down to pharmacy.
--- NOTE | 2025-05-09 06:47 | PTCARENOTE ---
Patient maintained maps above 65 off the levo. Patient with bed alarm on- attempts to get OOB to BSC without assistance. Will continue to monitor.
--- NOTE | 2025-05-09 07:50 | W.PN.HOSP.TC ---
Addendum entered and electronically signed by Ziyad Mahan MD 05/09/25 11:33:
Discussed/updated sister Tish as well.
Sz precautions ordered given unclear hx frequency Klonopin use, patient at risk for benzo withdrawal sz.
Original Note:
Today's Communication/Plan
-
levophed prn
midodrine discontinued d/t severe bradycardia
bradycardia appears resolved at this time follow Flumazenil
check EKG
Consider cardio eval if bradycardia re-occurs/worsen
Assessment / Plan
Assessment / Plan
Physical Exam
General: No acute distress, appears comfortable at this time. Anasarca swelling upper and lower ext's
HEENT: NormoCephalic, Moist mucous membranes and Atraumatic
Respiratory: Clear to auscultation b/l, stable respiratory status on room air
Cardiac: S1/S2 and Regular Rhythm; No Murmur or Rub
GI: Soft, Non Tender, Non Distended and Normal Bowel Sounds; No Organomegaly
Musculoskeletal: +1 pitting edema upper and lower ext's b/l
Skin: No Rash
Neuro: Lethargic but arousable conversant coherent
Psych: Calm
55F anxiety/depression, hyperlipidemia, history of diabetes and hx obesity significant wt loss following gastric bypass and Mounjaro treatment since developed intermittent nausea vomiting trouble with p.o. intake and episodes of diarrhea for past
month. Profound weakness, ED eval significant for hyponatremia, hypokalemia, and KAREN. Venous Doppler evaluation LE's would also find acute DVT RLE.
PLAN:
# Hyponatremia low BPs, h/o weightloss and poor po intake. Suspect hypovolemic hyponatremia. TSH wnl. KAREN. Denies diuretics. On lexapro.
#Requiring low dose pressor support, Hypovolemic shock suspect d/t poor oral intake, malnourishment, hypoalbuminemia
#Severe Protein Calorie Malnutrition of chronic illness
- IMU admit
- fluid resuscitation with NS 100ml/hr + 20 kcl, hypokalemia since resolved, IVF switched to LR
- urine osm and sodium
- am cortisol wnl x2
- nephrology consult appreciated
- wean pressor support as tolerated
- IV albumin infusions
- Scheduled Midodrine w/ holding parameters started titrated up to 10 mg TID (since discontinued d/t bradycardia as below)
- Multivitamin, thiamine supplementation
- nutrition eval appreciated
-CT Chest/abd/pelvis w/ oral contrast (no IV d/t karen) 3rd spacing b/l moderate pleural effusion anasarca, severe fatty liver disease
-Endocrine eval appreciated adrenal insufficiency ruled out w/ cosyntropin test
#possible Benzo abuse
#Severe bradycardia 2/2 Benzo overdose and possible polypharmacy with midodrine
-05/09/25 patient found taking her own prescription Klonopin 1 mg (unclear frequency given cognitive issues likely Klonopin induced)
-Bradycardia since resolved with once Flumazenil
-Midodrine discontinued as above, cont Levophed prn
-Discussed with Cardio, no need for inpt consultation at this time, reconsider if symptoms recur/worsen
-psych re-eval requested for suspected benzo abuse.
# Hypokalemia w/ metabolic alkalosis- Hypokalemia, alkalosis suggest GI losses or diuretic use surreptitiously. Denies etoh. Again h/o weight loss and poor oral intake.
#mild hypophosphatemia
#QT prolongation
- monitor and replete K as necessary
- Mg supplemented
- QT prolongation since improved
- Neutra-phos Powder Packets HS completed monitor off
- initial vbg relatively unremarkable
- cont potline monitor
- minimize use QT prolonging medications
#Likely anemia of chronic disease
Possible hemodilution contributing to current anemia, on IVF
05/06 1PRBC given for Hgb 7.6 slow trend down, good response noted
H&H remains stable since transfusion
# KAREN - Prerenal azotemia suspected. Hypoalbuminemia
#Suspect underlying CKD III
- iv fluids as above
- monitor i/os
-nephro eval
-Cr improved since admission, initial 1.7 trended down
#N/V/Weightloss - Unclear if functional. Hx of significant GI outpatient w/u
- antiemetics prn compazine (QT prolongation improved), Tigan
- nutritional supplementation
- GI consult appreciated
#upper and LE's swelling likely edema 2/2 hypoalbuminemia
#Probable Acute RLE DVT noted on Venous Duplex
avoided Lovenox d/t karen
hep gtt to transition to Eliquis 10 mg BID 7 days loading dose started evening 05/03 to cont through 05/10 morning then reduce to maintenance dose 5 mg BID
venous duplex upper ext's neg for dvt
ECHO appreciated EF 55-60% no significant valve abn's
# Patchy lingula opacity. No cough, wheezing, sob or hypoxia. Afebrile
- no abx indicated
-outpt follow CXR
#Anxiety
cont Rexulti patient's own med
Klonopin 0.5 mg BID prn (patient had been taking 1mg unclear frequency while in hospital as noted above)
Lexapro dose reduced to 15 mg daily as per psych
psych eval appreciated
PT/OT appreciated SNF rehab
DVT PPX - Eliquis
Code status - Full Code
Discussed with patient and patient's [place]
I spent a total of 50 minutes with the patient or on the floor. More than 50% of this time involved counseling and coordination of care.
When patient is discharged fax discharge/packet summary [phone] attn to primary care provider Dr Cassius Cruz
Anticipated Discharge: > 48 hours
Subjective/Interval History
-
Date of Service: May 09, 2025
Lethargic bradycardic down to 30s arousable. It was found overnight patient had been taking her own prescribed Klonopin 1 mg (unclear frequency, doubtful that she is away given cognitive issue likely d/t Yissel).
Objective Data
-
Labs:
Laboratory Results
05/09/25
03:33
WBC 9.9
Hgb 8.8 L
Hct 26.5 L
Plt Count 294
Sodium 135
Potassium 4.3
Chloride 107
Carbon Dioxide 26
BUN 16
Creatinine 1.5 H
Glucose 88
Calcium 9.0
Total Bilirubin 1.1
AST 16
ALT 14
Alkaline Phosphatase 67
Vital Signs:
Vital Signs
Temp Pulse Resp BP Pulse Ox
97.5 F 53 11 101/64 94
05/09/25 03:00 05/09/25 06:00 05/09/25 06:00 05/09/25 06:00 05/09/25 06:00
I&O
05/08/25 05/09/25 05/10/25
06:59 06:59 06:59
Intake Total 4855 / 4855
Output Total 600 / 600
Balance 4255 / 4255
[2025-05-09] MEDS: ELIQUIS 10 MG PO ×2 (08:02→20:29)
[2025-05-09] MEDS: VITAMIN B1 100 MG PO ×2 (08:02→20:29)
[2025-05-09] MEDS: LEXAPRO 15 MG PO (08:03)
[2025-05-09] MEDS: NON-FORMULARY ITEM 2 MG PO (08:04)
[2025-05-09] MEDS: PROTONIX 40 MG PO (08:04)
[2025-05-09] MEDS: THERAGRAN 1 TABLET PO (08:04)
[2025-05-09] MEDS: LEVOPHED 250 IV (09:05)
--- NOTE | 2025-05-09 09:18 | PTCARENOTE ---
Addendum entered by Elena Marshall RN 05/09/25 09:21:
Midodrine now d/c due to bradycardia.
Original Note:
SBP remains <90. Dr. Mahan notified, levophed restarted as ordered. Pt remains sinus faheem w/ HR dropping down to 35. Dr. Mahan aware, midodrine dose decreased for bradycardia.
[2025-05-09] MEDS: ROMAZICON 0.2 MG IV (09:29)
--- NOTE | 2025-05-09 09:48 | PTCARENOTE ---
0.2mg flumazenil IV given d/t possible benzo induced bradycardia. HR increased post administration.
--- NOTE | 2025-05-09 12:30 | W.PN.UPDATE ---
Update Note
Progress Note Update
patient seen chart reviewed. discussed with nursing and with dr moctezuma via tiger text. i have been made aware that patient had klonopin one mg tabs in her possession and since coming here she used them x 1. she was very apologetic and tearful. stated
she feels as though everyone now feels she is a 'drug addict'. she was unaware that she had a prn for klonopin she says although she did receive one o.5 mg on 05/06. in any case i don't think a stray klonopin here and there could possibly account
for the physiologic issues she has been dealing with ie heart rate bp etc rather i would opine this has to do with her weight loss and malnutrition. i have noted in this record before that i believe she has an eating disorder and i had not
discussed this with her before although i did discuss this with her out pt therapist. her son was here yesterday and i did not feel it was the proper time. today we spoke at length about it. she went back to when she had the bypass and her success
at weight loss subsequently which was threatened by weight gain when she was in a period of opiate abuse (she regained a large amount of weight over fifty lbs. ) she also had had two cosmetic surgeries given redundant abdominal skin which were very
painful. she did not want to go there again and she did become preoccupied with worries about weight hence the mounjaro. her weight loss became out of control. it was as if she developed a phobia about eating. she would prepare food for herself
then just stare at it. then there is the complicating factor of refeeding syndrome. she is at this point wanting to gain back some of her weight. she had told me 170 was a good weight for her...when i said 170 she said 'how about 160' which to me
is indicative of an anorexia nervosa type mindset which she acknowledged. she is agreeable to snf to help with her nutritional issues as well as physical debility once her medical needs are taken care of. of course given her issue with opiate
abuse the bzp were clearly not the best solution. that said it would be unwise to stop them abruptly as well. i would say she should continue to use the o.5 prn while she is here and her out pt prescriber philip long can address this with
her as out pt. i have not seen a lot of cognitive dysfunction when i have spoken to her. she did have some difficulty with names but her discussion of her hx seemed okay. in any case starvation can cause cognitive issues and patient who restrict
calories frequently reports issues with concentration and focus. i checked the pdmp and do not see overprescription of klonopin. psych can check in w her again tomorrow
[2025-05-09] MEDS: PEPCID 20 MG PO (20:29)
[2025-05-09] MEDS: KLONOPIN 0.5 MG PO (20:29)
[2025-05-10] VITALS (46 sets, daily range): BP systolic 83–132; BP diastolic 53–102; PULSE 69–72; O2SAT 96–99; BMI 30.2
[2025-05-10] MEDS: TYLENOL 650 MG PO (00:19)
--- NOTE | 2025-05-10 03:49 | PTCARENOTE ---
No acute events overnight. Remained off levo with maps greater than 65. PRN klonopin administered x1 for anxiety. Patient eating cheeseburgers in bed for breakfast provided by family. Will continue to monitor.
[2025-05-10 03:53] LABS: Hematocrit 24.7 % (37.0-47.0); Hemoglobin 8.4 g/dL (12.0-16.0); Mean Corp Hgb Conc. 34.0 g/dL (33.0-37.0); Mean Corpuscular Volume 91.1 fL (81.0-99.0); Platelet Count 294 10^3/uL (130-400); Red Cell Dist. Width 18.0 % (11.5-14.5)
[2025-05-10 04:17] LABS: Blood Urea Nitrogen 18 mg/dl (7-17); Calcium 8.3 mg/dl (8.4-10.2); Carbon Dioxide 25 mmol/L (22-30); Chloride 108 mmol/L (98-107); Estimated Creatinine Clearance 43 ml/min; Glucose 75 mg/dl (70-99); Magnesium 2.0 mg/dl (1.6-2.3); Potassium 4.3 mmol/L (3.5-5.1); Sodium 135 mmol/L (135-145); eGFR 37.62
[2025-05-10] MEDS: NON-FORMULARY ITEM 2 MG PO (09:59)
[2025-05-10] MEDS: DRISDOL (VITAMIN D2) 50000 UNITS PO (10:00)
[2025-05-10] MEDS: ELIQUIS 10 MG PO (10:00)
[2025-05-10] MEDS: VITAMIN B1 100 MG PO ×2 (10:01→22:23)
[2025-05-10] MEDS: THERAGRAN 1 TABLET PO (10:01)
[2025-05-10] MEDS: PROTONIX 40 MG PO (10:01)
[2025-05-10] MEDS: LEXAPRO 15 MG PO (10:01)
--- NOTE | 2025-05-10 12:54 | CM ---
Patient with Dx Suspected hypovolemic hyponatremia, Severe Protein Calorie Malnutrition. Room air. Seen by Psych. PT/OT 05/10 recommend skilled rehab.
Met with patient and spoke with Nilton by phone; both agree to short term SNF for rehab. Patient apparently wanted her mother to be included in the SNF choices, so spoke with patient's mother. They agrees on referrals to [place]
[facility] and [facility]. Patient & also inquired about [facility] in [place] - explained to both that acute rehab is not the recommended level of care that is needed. Patient says she was interested in [facility] because she has
difficulty eating and thought they might have a nutrition program. Patient shares that she plans on finding a nutrition program after she is discharged from SNF.
SNF referrals placed.
Phone call to [facility]; left message requesting response to referral.
Phone call to [facility]; left message requesting response to referral.
Plan follow up SNF referrals.
--- NOTE | 2025-05-10 14:10 | W.PN.HOSP.TC ---
Today's Communication/Plan
-
tx out of IMU
monitor BP-HR stable
check US chest
may need thoracentesis
cont eliquis
OOB/PT
Assessment / Plan
Assessment / Plan
Physical Exam
General: No acute distress, appears comfortable at this time. Anasarca swelling upper and lower ext's
HEENT: NormoCephalic, Moist mucous membranes and Atraumatic
Respiratory: Clear to auscultation b/l, stable respiratory status on room air
Cardiac: S1/S2 and Regular Rhythm; No Murmur or Rub
GI: Soft, Non Tender, Non Distended and Normal Bowel Sounds; No Organomegaly
Musculoskeletal: +1 pitting edema upper and lower ext's b/l
Skin: No Rash
Neuro: Lethargic but arousable conversant coherent
Psych: Calm
55F anxiety/depression, hyperlipidemia, history of diabetes and hx obesity significant wt loss following gastric bypass and Mounjaro treatment since developed intermittent nausea vomiting trouble with p.o. intake and episodes of diarrhea for past
month. Profound weakness, ED eval significant for hyponatremia, hypokalemia, and KAREN. Venous Doppler evaluation LE's would also find acute DVT RLE.
PLAN:
# Hyponatremia low BPs, h/o weightloss and poor po intake. Suspect hypovolemic hyponatremia. TSH wnl. KAREN. Denies diuretics. On lexapro.
#Requiring low dose pressor support, Hypovolemic shock suspect d/t poor oral intake, malnourishment, hypoalbuminemia
#Severe Protein Calorie Malnutrition of chronic illness
- am cortisol wnl x2. Off levophed.
- nephrology consult appreciated
- wean pressor support as tolerated
- s/p IV albumin infusions
- prn midodrine
- Multivitamin, thiamine supplementation
- nutrition eval appreciated
-CT Chest/abd/pelvis w/ oral contrast (no IV d/t karen) 3rd spacing b/l moderate pleural effusion anasarca, severe fatty liver disease
-Endocrine eval appreciated adrenal insufficiency ruled out w/ cosyntropin test
#possible Benzo abuse
#Severe bradycardia 2/2 Benzo overdose and possible polypharmacy with midodrine
-05/09/25 patient found taking her own prescription Klonopin 1 mg (unclear frequency given cognitive issues likely Klonopin induced)
-Bradycardia since resolved with once Flumazenil
-Midodrine discontinued as above, cont Levophed prn
-Discussed with Cardio, no need for inpt consultation at this time, reconsider if symptoms recur/worsen
-psych re-eval requested for suspected benzo abuse.
# Hypokalemia w/ metabolic alkalosis- Hypokalemia, alkalosis suggest GI losses or diuretic use surreptitiously. Denies etoh. Again h/o weight loss and poor oral intake.
#mild hypophosphatemia
#QT prolongation
- monitor and replete K as necessary
- Mg supplemented
- QT prolongation since improved
- Neutra-phos Powder Packets PCHS completed monitor off
- initial vbg relatively unremarkable
- cont cd reactor operator
- minimize use QT prolonging medications
#Pleurale effusions
-check US. If severe effusions may need thoracentesis
#Likely anemia of chronic disease
Possible hemodilution contributing to current anemia, on IVF
05/06 1PRBC given for Hgb 7.6 slow trend down, good response noted
H&H remains stable since transfusion
# KAREN - Prerenal azotemia suspected. Hypoalbuminemia
#Suspect underlying CKD III
- iv fluids as above
- monitor i/os
-nephro eval
-Cr slowing uptrending. Monitor closely.
#N/V/Weightloss - Unclear if functional. Hx of significant GI outpatient w/u
- antiemetics prn compazine (QT prolongation improved), Tigan
- nutritional supplementation
- GI consult appreciated
#upper and LE's swelling likely edema 2/2 hypoalbuminemia
#Probable Acute RLE DVT noted on Venous Duplex
avoided Lovenox d/t karen
hep gtt to transition to Eliquis 10 mg BID 7 days loading dose started evening 05/03 to cont through 05/10 morning then reduce to maintenance dose 5 mg BID
venous duplex upper ext's neg for dvt
ECHO appreciated EF 55-60% no significant valve abn's
# Patchy lingula opacity. No cough, wheezing, sob or hypoxia. Afebrile
- no abx indicated
- outpt follow CXR
#Anxiety
cont Rexulti patient's own med
Klonopin 0.5 mg BID prn (patient had been taking 1mg unclear frequency while in hospital as noted above)
Lexapro dose reduced to 15 mg daily as per psych
psych eval appreciated
PT/OT appreciated SNF rehab
DVT PPX - Eliquis
Code status - Full Code
PT/OT-SNF. Cm aware.
When patient is discharged fax discharge/packet summary [phone] attn to primary care provider Dr Cassius Cruz
Anticipated Discharge: 24 - 48 hours
Subjective/Interval History
-
Date of Service: May 10, 2025
feeling better
BP stable
off levo
Objective Data
-
Labs:
Laboratory Results
05/10/25
03:29
WBC 7.7
Hgb 8.4 L
Hct 24.7 L
Plt Count 294
Sodium 135
Potassium 4.3
Chloride 108 H
Carbon Dioxide 25
BUN 18 H
Creatinine 1.6 H
Glucose 75
Calcium 8.3 L
Vital Signs:
Vital Signs
Temp Pulse Resp BP Pulse Ox
97.9 F 70 14 102/62 96
05/10/25 07:25 05/10/25 08:00 05/10/25 08:00 05/10/25 08:00 05/10/25 08:20
I&O
05/09/25 05/10/25 05/11/25
06:59 06:59 06:59
Intake Total 1080 / 1080
Balance 1080 / 1080
Data Reviewed
-
Total Time Spent with Patient (in minutes): 55
--- NOTE | 2025-05-10 15:55 | W.PN.UPDATE ---
Update Note
Progress Note Update
Pt seen chart reviewed. Pt sitting up in chair, with mother visiting. Pt and mother showed pictures of pt from 2 years ago, looking much younger and healthier. Pt has lost hair, all her teeth have been removed, face in much thinner, appears
older. Mother reports pt has been obsessive about her weight, not eating much. Pt states she is aware of the need to stabilize her weight loss, states she ate breakfast today. She reports she felt well at her weight when she was size 14 to 16. Pt
reportedly showing some cognitive decline consistent with malnutrition. Mood appears stable, with Lexapro decreased to 15 mg. Sodium normalized- 135. Pt reports her outpatient psychiatrist started Rexulti several weeks ago, increased to 2 mg daily
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
Imp: Unspecified depression, stable on Lexapro. R/o eating disorder, hx of gastric bypass
Rec: continue Lexapro and Yissel Rodrigues prn. will follow
[2025-05-10] MEDS: ELIQUIS 5 MG PO (22:23)
[2025-05-10] MEDS: PEPCID 20 MG PO (22:23)
[2025-05-10] MEDS: KLONOPIN 0.5 MG PO (22:32)
[2025-05-11] VITALS (12 sets, daily range): BP systolic 67–118; BP diastolic 64–89; BMI 30.8
[2025-05-11 04:22] LABS: Hematocrit 27.8 % (37.0-47.0); Hemoglobin 9.3 g/dL (12.0-16.0); Mean Corp Hgb Conc. 33.5 g/dL (33.0-37.0); Mean Corpuscular Volume 91.4 fL (81.0-99.0); Platelet Count 377 10^3/uL (130-400); Red Cell Dist. Width 18.4 % (11.5-14.5)
[2025-05-11 04:38] LABS: Blood Urea Nitrogen 21 mg/dl (7-17); Calcium 8.9 mg/dl (8.4-10.2); Carbon Dioxide 24 mmol/L (22-30); Chloride 108 mmol/L (98-107); Estimated Creatinine Clearance 43 ml/min; Glucose 72 mg/dl (70-99); Magnesium 2.1 mg/dl (1.6-2.3); Potassium 4.7 mmol/L (3.5-5.1); Sodium 136 mmol/L (135-145); eGFR 37.62
[2025-05-11] MEDS: PROTONIX 40 MG PO (09:03)
[2025-05-11] MEDS: THERAGRAN 1 TABLET PO (09:03)
[2025-05-11] MEDS: VITAMIN B1 100 MG PO ×2 (09:03→20:59)
[2025-05-11] MEDS: ELIQUIS 5 MG PO ×2 (09:04→20:59)
[2025-05-11] MEDS: LEXAPRO 15 MG PO (09:04)
[2025-05-11] MEDS: NON-FORMULARY ITEM 2 MG PO (09:04)
--- NOTE | 2025-05-11 12:15 | VATNOTE ---
Routine rounds: MD contacted regarding PICC need, wants to watch pt's blood pressure for 24 more hours prior to discontinuing PICC, will continue to follow.
--- NOTE | 2025-05-11 13:10 | W.PN.HOSP.TC ---
Today's Communication/Plan
-
IRAD for thora
oob/pt
increase po intake encourage
Assessment / Plan
Assessment / Plan
Physical Exam
General: No acute distress, appears comfortable at this time. Anasarca swelling upper and lower ext's
HEENT: NormoCephalic, Moist mucous membranes and Atraumatic
Respiratory: Clear to auscultation b/l, stable respiratory status on room air
Cardiac: S1/S2 and Regular Rhythm; No Murmur or Rub
GI: Soft, Non Tender, Non Distended and Normal Bowel Sounds; No Organomegaly
Musculoskeletal: +1 pitting edema upper and lower ext's b/l
Skin: No Rash
Neuro: Lethargic but arousable conversant coherent
Psych: Calm
55F anxiety/depression, hyperlipidemia, history of diabetes and hx obesity significant wt loss following gastric bypass and Mounjaro treatment since developed intermittent nausea vomiting trouble with p.o. intake and episodes of diarrhea for past
month. Profound weakness, ED eval significant for hyponatremia, hypokalemia, and KAREN. Venous Doppler evaluation LE's would also find acute DVT RLE.
PLAN:
# Hyponatremia low BPs, h/o weightloss and poor po intake. Suspect hypovolemic hyponatremia. TSH wnl. KAREN. Denies diuretics. On lexapro.
#Requiring low dose pressor support, Hypovolemic shock suspect d/t poor oral intake, malnourishment, hypoalbuminemia
#Severe Protein Calorie Malnutrition of chronic illness
- am cortisol wnl x2. Off levophed.
- s/p IV albumin infusions
- prn midodrine
- Multivitamin, thiamine supplementation
- nutrition eval appreciated
-CT Chest/abd/pelvis w/ oral contrast (no IV d/t karen) 3rd spacing b/l moderate pleural effusion anasarca, severe fatty liver disease
-Endocrine eval appreciated adrenal insufficiency ruled out w/ cosyntropin test
#possible Benzo abuse
#Severe bradycardia 2/2 Benzo overdose and possible polypharmacy with midodrine
-05/09/25 patient found taking her own prescription Klonopin 1 mg (unclear frequency given cognitive issues likely Klonopin induced)
-Bradycardia since resolved with once Flumazenil
-Discussed with Cardio, no need for inpt consultation at this time, reconsider if symptoms recur/worsen
-psych re-eval requested for suspected benzo abuse.
# Hypokalemia w/ metabolic alkalosis- Hypokalemia, alkalosis suggest GI losses or diuretic use surreptitiously. Denies etoh. Again h/o weight loss and poor oral intake.
#mild hypophosphatemia
#QT prolongation
- monitor and replete K as necessary
- Mg supplemented
- QT prolongation since improved
- Neutra-phos Powder Packets PCHS completed monitor off
- initial vbg relatively unremarkable
- cont quality assurance monitor body
- minimize use QT prolonging medications
#Pleural effusions
- Chest ultrasound results noted. Possible right sided amenable to thoracentesis. Will ask [facility] for input and diagnostic and therapeutic approach. Orders placed.
#Likely anemia of chronic disease
Possible hemodilution contributing to current anemia, on IVF
05/06 1PRBC given for Hgb 7.6
H&H remains stable since transfusion
# KAREN - Prerenal azotemia suspected. Hypoalbuminemia
#Suspect underlying CKD III
- iv fluids as above -stopped for now
- monitor i/os
-nephro signed off.
-Cr slowing uptrending. Monitor closely.
#N/V/Weightloss - Unclear if functional. Hx of significant GI outpatient w/u
- antiemetics prn compazine (QT prolongation improved), Tigan
- nutritional supplementation
- GI consult appreciated
#upper and LE's swelling likely edema 2/2 hypoalbuminemia
#Probable Acute RLE DVT noted on Venous Duplex
avoided Lovenox d/t karen
hep gtt to transition to Eliquis 10 mg BID 7 days loading dose started evening 05/03 to cont through 05/10 morning then reduce to maintenance dose 5 mg BID
venous duplex upper ext's neg for dvt
ECHO appreciated EF 55-60% no significant valve abn's
# Patchy lingula opacity. No cough, wheezing, sob or hypoxia. Afebrile
- no abx indicated
- outpt follow CXR
#Anxiety
cont Rexulti patient's own med
Klonopin 0.5 mg BID prn (patient had been taking 1mg unclear frequency while in hospital as noted above)
Lexapro dose reduced to 15 mg daily as per psych
psych eval appreciated
PT/OT appreciated SNF rehab
DVT PPX - Eliquis
Code status - Full Code
PT/OT-SNF. Cm aware.
When patient is discharged fax discharge/packet summary [phone] attn to primary care provider Dr Cassius Cruz
Anticipated Discharge: Within 24 hours
Subjective/Interval History
-
Date of Service: May 11, 2025
states drank chocolate milk and ate chilli last night
Objective Data
-
Labs:
Laboratory Results
05/11/25
03:17
WBC 8.5
Hgb 9.3 L
Hct 27.8 L
Plt Count 377 D
Sodium 136
Potassium 4.7
Chloride 108 H
Carbon Dioxide 24
BUN 21 H
Creatinine 1.6 H
Glucose 72
Calcium 8.9
Vital Signs:
Vital Signs
Temp Pulse Resp BP Pulse Ox
97.5 F 60 16 93/68 98
05/11/25 11:00 05/11/25 11:37 05/11/25 11:00 05/11/25 11:37 05/11/25 11:00
I&O
05/10/25 05/11/25 05/12/25
06:59 06:59 06:59
Intake Total 1080 / 1080 1005 / 1005 480 / 480
Balance 1080 / 1080 1005 / 1005 480 / 480
--- NOTE | 2025-05-11 15:08 | CM ---
Patient with Dx Suspected hypovolemic hyponatremia, Severe Protein Calorie Malnutrition. Thoracentesis today. CT Chest/abd/pel today. Room air. Seen by Psych. PT/OT 05/10 recommend skilled rehab.
SNF referrals reviewed: declined by [facility] (not appropriate for them per Cheryl Nicole) and [facility] (no available bed).
Met with patient and spoke with her mother by phone; they are agreeable to additional referrals in [place], [place], [place] & [place] including [facility], [facility] & [facility]. Also referred to [facility] [facility].
Spoke with Cheryl Carl, [facility]; they can accept once insurance approves.
Spoke with patient and Wm who agrees with [facility] SNF. updated that insurance approved rehab.
Spoke with CALVIN Chaidez; SNF is approved for 7 days, from 05/10 - 05/17, auth # [id number]. NR 05/17 to [phone].
Plan [facility] tomorrow.
[2025-05-11 15:27] LABS: Body Fluid Second Tech US
[2025-05-11 18:59] LABS: LDH 301 U/L (120-246); Total Protein 5.0 g/dl (6.3-8.2)
[2025-05-11] MEDS: PEPCID 20 MG PO (20:59)
[2025-05-11] MEDS: KLONOPIN 0.5 MG PO (21:00)
--- NOTE | 2025-05-11 21:34 | PTCARENOTE ---
Assumed care of pt from pradip RN. Pt aaox3,denies any pain. Anxious at times, PRN Klonopin administered. SANG medications administered as well (see DEC). NSR on monitor with PVCs. +2 LUE edema and +3 b/t LE edema. SpO2 95% on RA, on auscultation
lungs diminished at the bases. Vital signs as documented. Pt OOB x1 with RW. Verbal report provided to Natalya on 1 Acute. Pt transferred via wheelchair with all belongings.
[2025-05-12 03:24] VITALS: BP 125/72
[2025-05-12 04:26] VITALS: BMI 29.6
--- NOTE | 2025-05-12 06:25 | PTCARENOTE ---
Pt arrived to floor as transfer from IMU. Tele monitor applied, HR in the 60's-70's NSR on the monitor. Pt ambulatory to bathroom with walker as needed with assist, standby assist. Pt placed on bed alarm per pt safety. Right dual picc in place. pt
resting in bed per comfort. Call merino in reach. Pt requesting lots of fluids at bedside, 2 cups of water, bottle of soda. Otherwise denies any complaints. Will continue to monitor.
[2025-05-12 07:20] VITALS: BP 97/51
[2025-05-12] MEDS: NON-FORMULARY ITEM 2 MG PO (09:00)
[2025-05-12] MEDS: THERAGRAN 1 TABLET PO (09:01)
[2025-05-12] MEDS: PROTONIX 40 MG PO (09:01)
[2025-05-12] MEDS: ELIQUIS 5 MG PO (09:01)
[2025-05-12] MEDS: LEXAPRO 15 MG PO (09:01)
[2025-05-12] MEDS: VITAMIN B1 100 MG PO (09:02)
[2025-05-12 09:35] LABS: Hematocrit 25.8 % (37.0-47.0); Hemoglobin 8.6 g/dL (12.0-16.0); Mean Corp Hgb Conc. 33.3 g/dL (33.0-37.0); Mean Corpuscular Volume 92.1 fL (81.0-99.0); Platelet Count 317 10^3/uL (130-400); Red Cell Dist. Width 18.3 % (11.5-14.5)
[2025-05-12 10:11] LABS: ALT (SGPT) 14 U/L (0-35); AST (SGOT) 15 U/L (14-36); Albumin 2.7 g/dl (3.5-5.0); Alkaline Phosphatase 73 U/L (38-126); Blood Urea Nitrogen 22 mg/dl (7-17); Calcium 8.5 mg/dl (8.4-10.2); Carbon Dioxide 25 mmol/L (22-30); Chloride 108 mmol/L (98-107); Estimated Creatinine Clearance 40 ml/min; Glucose 73 mg/dl (70-99); Magnesium 2.0 mg/dl (1.6-2.3); Potassium 4.1 mmol/L (3.5-5.1); Sodium 135 mmol/L (135-145); Total Protein 4.6 g/dl (6.3-8.2); eGFR 34.98
--- NOTE | 2025-05-12 11:12 | W.PN.HOSP.TC ---
Today's Communication/Plan
-
Continue Eliquis
Continue Lexapro
Encourage increased p.o. intake nutrition
Assessment / Plan
Assessment / Plan
Physical Exam
General: No acute distress, appears comfortable at this time. Anasarca swelling upper and lower ext's
HEENT: NormoCephalic, Moist mucous membranes and Atraumatic
Respiratory: Clear to auscultation b/l, stable respiratory status on room air
Cardiac: S1/S2 and Regular Rhythm; No Murmur or Rub
GI: Soft, Non Tender, Non Distended and Normal Bowel Sounds; No Organomegaly
Musculoskeletal: +1 pitting edema upper and lower ext's b/l
Skin: No Rash
Neuro: Lethargic but arousable conversant coherent
Psych: Calm
55F anxiety/depression, hyperlipidemia, history of diabetes and hx obesity significant wt loss following gastric bypass and Mounjaro treatment since developed intermittent nausea vomiting trouble with p.o. intake and episodes of diarrhea for past
month. Profound weakness, ED eval significant for hyponatremia, hypokalemia, and KAREN. Venous Doppler evaluation LE's would also find acute DVT RLE.
PLAN:
# Hyponatremia low BPs, h/o weightloss and poor po intake. Suspect hypovolemic hyponatremia. TSH wnl. KAREN. Denies diuretics. On lexapro.
#Requiring low dose pressor support, Hypovolemic shock suspect d/t poor oral intake, malnourishment, hypoalbuminemia
#Severe Protein Calorie Malnutrition of chronic illness
- am cortisol wnl x2. Off levophed.
- s/p IV albumin infusions
- prn midodrine
- Multivitamin, thiamine supplementation
- nutrition eval appreciated
-CT Chest/abd/pelvis w/ oral contrast (no IV d/t karen) 3rd spacing b/l moderate pleural effusion anasarca, severe fatty liver disease
-Endocrine eval appreciated adrenal insufficiency ruled out w/ cosyntropin test
#possible Benzo abuse
#Severe bradycardia 2/2 Benzo overdose and possible polypharmacy with midodrine
-05/09/25 patient found taking her own prescription Klonopin 1 mg (unclear frequency given cognitive issues likely Klonopin induced)
-Bradycardia since resolved with once Flumazenil
-Discussed with Cardio, no need for inpt consultation at this time, reconsider if symptoms recur/worsen
-psych re-eval requested for suspected benzo abuse.
# Hypokalemia w/ metabolic alkalosis- Hypokalemia, alkalosis suggest GI losses or diuretic use surreptitiously. Denies etoh. Again h/o weight loss and poor oral intake.
#mild hypophosphatemia
#QT prolongation
- monitor and replete K as necessary
- Mg supplemented
- QT prolongation since improved
- Neutra-phos Powder Packets [facility] completed monitor off
- initial vbg relatively unremarkable
- cont monitoring and evaluation advisor
- minimize use QT prolonging medications
#Pleural effusions
Status post 1100 cc of fluid removal on thoracentesis on the right side. Transudative fluid likely secondary to hypoalbuminemia secondary to significant decreased p.o. intake
Fluid culture negative for growth
#Likely anemia of chronic disease
Possible hemodilution contributing to current anemia, on IVF
05/06 1PRBC given for Hgb 7.6
H&H remains stable since transfusion
# KAREN - Prerenal azotemia suspected. Hypoalbuminemia
#Suspect underlying CKD III
- iv fluids as above -stopped for now
- monitor i/os
-nephro signed off.
-Cr slowing uptrending. Monitor closely.
#N/V/Weightloss - Unclear if functional. Hx of significant GI outpatient w/u
- antiemetics prn compazine (QT prolongation improved), Tigan
- nutritional supplementation
- GI consult appreciated
#upper and LE's swelling likely edema 2/2 hypoalbuminemia
#Probable Acute RLE DVT noted on Venous Duplex
hep gtt to transition to Eliquis 10 mg BID 7 days loading dose started evening 05/03 to cont through 05/10 morning then reduce to maintenance dose 5 mg BID
venous duplex upper ext's neg for dvt
ECHO appreciated EF 55-60% no significant valve abn's
# Patchy lingula opacity. No cough, wheezing, sob or hypoxia. Afebrile
- no abx indicated
- outpt follow CXR
#Anxiety
cont Rexulti patient's own med
Klonopin 0.5 mg BID prn (patient had been taking 1mg unclear frequency while in hospital as noted above)
Lexapro dose reduced to 15 mg daily as per psych
psych eval appreciated
PT/OT appreciated SNF rehab
DVT PPX - Eliquis
Code status - Full Code
PT/OT-SNF. Cm aware.
More than 30 minutes spent in discharge including
Final examination of the patient
Summarizing hospital stay
Instructions for continuing care to all relevant caregivers
Preparation of discharge records, prescriptions, and referral forms
Total time spent (in minutes): 52
Anticipated Discharge: Today
Subjective/Interval History
-
Date of Service: May 12, 2025
States she feels less edematous
States feel significantly better after thoracentesis
States lower extremity edema is improving
Objective Data
-
Labs:
Laboratory Results
05/12/25
09:23
WBC 6.5
Hgb 8.6 L
Hct 25.8 L
Plt Count 317
Sodium 135
Potassium 4.1
Chloride 108 H
Carbon Dioxide 25
BUN 22 H
Creatinine 1.7 H
Glucose 73
Calcium 8.5
Total Bilirubin 0.6
AST 15
ALT 14
Alkaline Phosphatase 73
Vital Signs:
Vital Signs
Temp Pulse Resp BP Pulse Ox
97.5 F 61 18 97/51 99
05/12/25 07:20 05/12/25 07:20 05/12/25 07:20 05/12/25 07:20 05/12/25 08:21
I&O
05/11/25 05/12/25 05/13/25
06:59 06:59 06:59
Intake Total 1005 / 1005 720 / 720
Output Total 0 / 0
Balance 1005 / 1005 720 / 720
--- NOTE | 2025-05-12 11:20 | W.DCSUMMARY ---
Discharge Summary
Discharge Data
Date of Admission: 05/02/25
Date of Discharge: 05/12/25
-
Pending Results: No
Hospital Course
55F anxiety/depression, hyperlipidemia, history of diabetes and hx obesity significant wt loss following gastric bypass and Mounjaro treatment since developed intermittent nausea vomiting trouble with p.o. intake and episodes of diarrhea for past
month. Profound weakness, ED eval significant for hyponatremia, hypokalemia, and KAREN. Venous Doppler evaluation LE's would also find acute DVT RLE. Heparin drip was started and was transitioned to p.o. Eliquis on discharge. Patient was also
evaluated by psychiatry, endocrinology and nephrology. Patient required pressor support and was eventually weaned off Levophed. Midodrine was started however with episode of bradycardia and was discontinued. Heart rate stabilized. CT
Chest/abd/pelvis w/ oral contrast (no IV d/t karen) 3rd spacing b/l moderate pleural effusion anasarca, severe fatty liver disease. Endocrine eval appreciated adrenal insufficiency ruled out w/ cosyntropin test. Severe bradycardia 2/2 Benzo overdose
and possible polypharmacy with midodrine. Pleural effusions Status post 1100 cc of fluid removal on thoracentesis on the right side. Transudative fluid likely secondary to hypoalbuminemia secondary to significant decreased p.o. intake. Fluid
culture negative for growth patient electrolytes stabilized. Psych also evaluate the patient. Patient Lexapro dose was decreased. Patient appetite improved. Patient blood pressure stabilized. Patient was eval by physical and Occupational
Therapy. Patient was counseled multiple times to increase her p.o. intake of nutrition. Patient with improvement in edema. Patient be discharged to [facility] facility.
Discharge Plan
-
Patient Disposition: Long Term/SNF
Discharge Diagnosis/Procedures: Hyponatremia
Hypokalemia
Metabolic alkalosis
Hypophosphatemia
Pleural effusion right side status post thoracentesis
Acute kidney injury on suspected chronic kidney disease
Nausea, vomiting
Anasarca
Acute right lower extremity DVT
Severe anxiety
Condition: Fair
Diet: Regular
Activity: As tolerated
Driving Restrictions: As prior to admission
Blood Work: CBC and BMP in 1 week via primary doctor
Referrals:
Cassius Cruz DO [Family Provider, Family Practice] - in less than 1 week
Prescriptions:
New
Eliquis 5 mg tablet
5 mg PO BID 37 Days Qty: 74 0RF
famotidine 20 mg Tablet
20 mg PO HS 30 Days Qty: 30 0RF
escitalopram oxalate 10 mg Tablet
15 mg PO DAILY 30 Days Qty: 45 0RF
thiamine mononitrate (vit B1) 100 mg Tablet
100 mg PO BID 30 Days Qty: 60 0RF
multivitamin with folic acid [Tab-A-Domenica] 400 mcg Tablet
1 tab PO DAILY 30 Days Qty: 30 0RF
cholecalciferol (vitamin D3) 50 mcg (2,000 unit) capsule
50 mcg PO DAILY Qty: 30 0RF
Continued
atorvastatin 20 mg Tablet
20 mg PO DAILY
omeprazole 40 mg Capsule,Delayed Release(Dr/Ec)
40 mg PO DAILY
Rexulti 2 mg Tablet
2 mg PO DAILY
clonazepam 0.5 mg Tablet
0.5 mg PO BIDPRN PRN (Reason: anxiety) Qty: 6 0RF
Discontinued
escitalopram oxalate [Lexapro] 20 mg Tablet
20 mg PO DAILY
potassium chloride 20 mEq tablet extended release
20 meq PO BID Qty: 14 0RF
ondansetron HCl [Zofran] 4 mg Tablet
4 mg PO Q8H PRN (Reason: nausea)
famotidine 40 mg Tablet
40 mg PO DAILY
furosemide 80 mg Tablet
80 mg PO DAILY
Rx Instructions:
pt reporting 'as needed'
Discharge Orders:
Discharge Patient (As Directed); Ordered 05/12/25
Ordered By: Mika Gutierrez
Discharge Date and Time
Print Language: TONGAN
[2025-05-12 11:38] VITALS: BP 111/68; BP 112/67; BP 97/59; PULSE 71; PULSE 72; PULSE 73
--- NOTE | 2025-05-12 12:30 | CM ---
Reviewed the chart notes and spoke with the patient at the bedside. Patient discharging today to [facility]. Discussed transportation options. Wheelchair van at [id number] costs or family could transport. Patient selected spouse to transport. CM
continues to be available to patient/family and is monitoring medical plan for needs at discharge.
Plan: Discharge to [facility] today.
Call report to: [phone]
Fax report to: [phone]
--- NOTE | 2025-05-12 14:24 | PTCARENOTE ---
Pt with discharge orders. Pt going to [facility]. PICC line removed per order. Discharge instructions faxed to [facility]. Attempts made to call for report. Spoke with front end ui developer. Unable to talk to nursing staff.
Called x4, number and name given to call back for report. Pt escorted to husbands vehicle for transport by wheelchair.
== END 2025-05-12 14:26 | DRG 682 ==
LOC: 1 ACUTE 00:08
PROVIDERS: Emergency Medicine; Internal Medicine; Radiology Diagnostic Radiology; ADMITTING PHYSICIAN Internal Medicine; ATTENDING PHYSICIAN Hospitalist; CONSULT PHYSICIAN Internal Medicine Endocrinology, Diabetes & Metabolism; CONSULT PHYSICIAN Internal Medicine Gastroenterology; CONSULT PHYSICIAN Psychiatry & Neurology Psychiatry; CONSULT PHYSICIAN Specialist; EMERGENCY PHYSICIAN Emergency Medicine; FAMILY PHYSICIAN Family Medicine Adult Medicine
PROC: 02HV33Z Insertion of Infusion Device into Superior Vena Cava, Percutaneous Approach (ICD-10-PCS; 2025-05-02)
PROC: 30233N1 Transfusion of Nonautologous Red Blood Cells into Peripheral Vein, Percutaneous Approach (ICD-10-PCS; 2025-05-06)
PROC: 0W993ZZ Drainage of Right Pleural Cavity, Percutaneous Approach (ICD-10-PCS; 2025-05-11)
DX: N17.9 Acute kidney failure, unspecified (principal); E43 Unspecified severe protein-calorie malnutrition; R57.1 Hypovolemic shock; E87.1 Hypo-osmolality and hyponatremia; E87.3 Alkalosis; R64 Cachexia; F11.20 Opioid dependence, uncomplicated; J90 Pleural effusion, not elsewhere classified; I82.451 Acute embolism and thrombosis of right peroneal vein; I82.441 Acute embolism and thrombosis of right tibial vein; R62.7 Adult failure to thrive; F41.9 Anxiety disorder, unspecified; F32.A Depression, unspecified; E78.5 Hyperlipidemia, unspecified; E87.6 Hypokalemia; E88.09 Other disorders of plasma-protein metabolism, not elsewhere classified; E86.0 Dehydration; N18.31 Chronic kidney disease, stage 3a; I12.9 Hypertensive chronic kidney disease with stage 1 through stage 4 chronic kidney disease, or unspecified chronic kidney disease; K59.09 Other constipation; F17.200 Nicotine dependence, unspecified, uncomplicated; I95.89 Other hypotension; T42.4X1A Poisoning by benzodiazepines, accidental (unintentional), initial encounter; R00.1 Bradycardia, unspecified; E83.39 Other disorders of phosphorus metabolism; G89.29 Other chronic pain; D63.8 Anemia in other chronic diseases classified elsewhere; E11.22 Type 2 diabetes mellitus with diabetic chronic kidney disease; E66.9 Obesity, unspecified; Z68.29 Body mass index [BMI] 29.0-29.9, adult; Z79.84 Long term (current) use of oral hypoglycemic drugs; Z79.899 Other long term (current) drug therapy; Z90.49 Acquired absence of other specified parts of digestive tract; Z98.84 Bariatric surgery status
CPT/HCPCS: 32555; 71045; 71046; 71250; 74176; 76604; 80048; 80053; 80061; 80306; 80307; 81003; 81015; 82306; 82533; 82570; 82607; 82728; 82746; 82805; 82945; 83540; 83550; 83605; 83615; 83690; 83735; 83880; 83935; 83986; 84100; 84134; 84145; 84155; 84156; 84157; 84300; 84443; 84478; 85014; 85018; 85025; 85027; 85730; 86850; 86900; 86901; 86920; 87015; 87070; 87205; 88112; 88305; 89051; 93005; 93306; 93970; 96361; 96365; 96366; 96375; 97116; 97162; 97167; 97530; 97535; 99285; 99406; P9016; P9047; Q9950

== ENCOUNTER 2025-05-18 21:17 | Emergency (ER) | payer BC, SELFPAY ==
[2025-05-18 21:23] VITALS: BP 114/66
[2025-05-18 22:14] VITALS: BMI 30.1
[2025-05-18 22:32] VITALS: BP 112/89
[2025-05-18 22:41] LABS: Hematocrit 29.0 % (37.0-47.0); Hemoglobin 9.4 g/dL (12.0-16.0); Mean Corp Hgb Conc. 32.4 g/dL (33.0-37.0); Mean Corpuscular Volume 94.8 fL (81.0-99.0); Nucleated Red Blood Cells % 0 %; Platelet Count 339 10^3/uL (130-400); Red Cell Dist. Width 18.4 % (11.5-14.5)
[2025-05-18 23:02] LABS: ALT (SGPT) 22 U/L (0-35); AST (SGOT) 22 U/L (14-36); Albumin 3.5 g/dl (3.5-5.0); Alkaline Phosphatase 115 U/L (38-126); Blood Urea Nitrogen 30 mg/dl (7-17); Calcium 8.8 mg/dl (8.4-10.2); Carbon Dioxide 24 mmol/L (22-30); Chloride 110 mmol/L (98-107); Estimated Creatinine Clearance 47 ml/min; Glucose 95 mg/dl (70-99); Potassium 4.4 mmol/L (3.5-5.1); Sodium 140 mmol/L (135-145); Total Protein 5.8 g/dl (6.3-8.2); eGFR 40.65
--- NOTE | 2025-05-18 23:31 | ED.GENMED ---
History of Present Illness
<Brittney Mosquera DO, Resident - Last Filed: 05/19/25 00:16>
General
Chief Complaint: Swelling
Source: patient and significant other
Exam Limitations: none
Time Seen by Provider: 05/18/25 22:51
Nursing documentation reviewed up to this point in time: agreed with
History of Present Illness
History of Present Illness:
Patient is a 55-year-old female with past medical history of gastric bypass surgery 2006 unsure use in 2023 with 160 pound weight loss, presenting with lower extremity swelling and weeping wounds. Patient has had a complicated IV loss history,
patient lost significant amount of weight after having gastric bypass in 2005, gained 100 pounds back, started on Mounjaro in 2023. Patient last about 160 pounds. Patient has experienced poor oral intake since and has been diagnosed with anorexia.
Patient was recently hospitalized 3 weeks ago for lower extremity swelling and electrolyte imbalance. Upon discharge patient was encouraged to increase her p.o. intake. Patient was seen by her PCP yesterday who started her on furosemide 40 mg and
potassium 10 mg. Patient called her work checker who encouraged her to increase the dose of furosemide to 80 mg and potassium to twice daily until Saturday, but once they heard about her weeping wounds, encourage patient to come to the emergency
department. Patient says that the swelling has been increasing since her discharge. She noticed the weeping wounds yesterday. She describes them as blisters that popped, and are very painful. Patient notes swelling in her lower extremities up to
her mid thighs. Patient also notes increased red abrasions on the backs of her hands bilaterally. Patient is still taking Eliquis as prescribed for the DVTs found incidentally on her last admission.
Past History
<Brittney Mosquera DO, Resident - Last Filed: 05/19/25 00:16>
Past History
ED Past Medical History: HTN and Other (chronic abdominal pain; pancreatitis, )
ED Past Surgical History: Cholecystectomy, Gynecological and Other (gastric bypass, hernia)
Social History
Tobacco: Non-smoker
Alcohol: None
Drug: None
Personal:
Living: with family
Review of Systems
<Brittney Mosquera DO, Resident - Last Filed: 05/19/25 00:16>
Review of Systems
All Other Systems: ROS reviewed and negative except as documented in HPI and ROS
Constitutional: Reports weight loss
EENT: Reports other (Gum pain and bleeding, resolving since albumin infusion)
Respiratory: Reports no symptoms
Cardiac: Reports no symptoms
ABD/GI: Reports no symptoms
: Reports no symptoms
Musculoskeletal: Reports edema (Bilateral lower extremities. Pitting edema up to mid thighs bilaterally. Weeping wounds noted bilaterally on feet and ankles.)
Skin: Reports other (Weeping wounds noted bilaterally on feet and ankles. Abrasions and excoriations noted bilaterally on backs of both hands)
Neurological: Reports no symptoms
Endocrine: Reports no symptoms
Hematologic/Lymphatic: Reports no symptoms
Psychiatric: Reports no symptoms
Phy Exam
<Brittney Mosquera DO, Resident - Last Filed: 05/19/25 00:16>
General Physical Exam
General Presentation: no apparent distress and other (appears chronically ill)
General age: appears older than age
General Habitus: cachetic
General Mental: alert
Cardiovascular Exam
Cardiovascular Exam: regular rate/rhythm
Heart Sounds: normal
Pulmonary Exam
Pulmonary Exam: lungs clear and no respiratory distress
Gastrointestinal Exam
Gastrointestinal Exam: normal bowel sounds
Neurological Exam
Neurological Exam: alert and oriented x3
Musculoskeletal Exam
Musculoskeletal Exam: other (Edema in bilateral lower extremities. Pitting edema up to mid thighs bilaterally. )
Skin Exam
Skin Exam: other (Weeping wounds noted bilaterally on feet and ankles. excoriations noted on backs of hands)
Psychiatric Exam
Psychiatric Exam: normal mood/affect
Scores
<Brittney Mosquera DO, Resident - Last Filed: 05/19/25 00:16>
Heart Failure Risk
Heart Failure Risk Score: Not Applicable
Course
<Brittney Mosquera DO, Resident - Last Filed: 05/19/25 00:16>
Orders/Labs/Results
Orders:
Orders
05/18/25 22:29
CMP [Comprehensive Metabolic Panel] Urgent
Complete Blood Count/With Diff Urgent
Abnormal Lab Results
05/18/25
22:29
RBC 3.06 L 10^6/uL
(4.20-5.40)
Hgb 9.4 L g/dL
(12.0-16.0)
Hct 29.0 L %
(37.0-47.0)
MCHC 32.4 L g/dL
(33.0-37.0)
RDW 18.4 H %
(11.5-14.5)
Chloride 110 H mmol/L
(98-107)
BUN 30 H mg/dl
(7-17)
Creatinine 1.5 H mg/dL
(0.6-1.0)
Total Protein 5.8 L g/dl
(6.3-8.2)
05/18/25 22:29
05/18/25 22:29
Vital Signs
Initial and Last Documented VS:
Initial Vital Signs
Temp Pulse Resp BP
98.2 F 79 16 114/66
05/18/25 21:23 05/18/25 21:23 05/18/25 21:23 05/18/25 21:23
Last Documented Vital Signs
Temp Pulse Resp BP Pulse Ox
98.2 F 83 18 112/89 99
05/18/25 21:23 05/18/25 22:37 05/18/25 22:37 05/18/25 22:32 05/18/25 23:43
<Austen Varela DO - Last Filed: 05/19/25 00:01>
Orders/Labs/Results
Orders:
Orders
05/18/25 22:29
CMP [Comprehensive Metabolic Panel] Urgent
Complete Blood Count/With Diff Urgent
Abnormal Lab Results
05/18/25
22:29
RBC 3.06 L 10^6/uL
(4.20-5.40)
Hgb 9.4 L g/dL
(12.0-16.0)
Hct 29.0 L %
(37.0-47.0)
MCHC 32.4 L g/dL
(33.0-37.0)
RDW 18.4 H %
(11.5-14.5)
Chloride 110 H mmol/L
(98-107)
BUN 30 H mg/dl
(7-17)
Creatinine 1.5 H mg/dL
(0.6-1.0)
Total Protein 5.8 L g/dl
(6.3-8.2)
05/18/25 22:29
05/18/25 22:29
Vital Signs
Initial and Last Documented VS:
Initial Vital Signs
Temp Pulse Resp BP
98.2 F 79 16 114/66
05/18/25 21:23 05/18/25 21:23 05/18/25 21:23 05/18/25 21:23
Last Documented Vital Signs
Temp Pulse Resp BP Pulse Ox
98.2 F 83 18 112/89 99
05/18/25 21:23 05/18/25 22:37 05/18/25 22:37 05/18/25 22:32 05/18/25 23:43
<Brittney Mosquera DO, Resident - Last Filed: 05/19/25 00:16>
MDM/Problems Addressed
Differential Diagnosis Includes:
Hypoproteinemia, hypoalbuminemia
MDM/Problems Addressed:
Patient's blood work revealed protein 5.8 g/dL. Albumin was 3.5 g/dL. Lab work otherwise unremarkable. Will continue to follow work checker recommendation of receiving 80 mg of Lasix IV now and give albumin. Patient ready for discharge and will
follow-up with her work checker and PCP as scheduled. Patient will continue her furosemide schedule as indicated by the work checker. Will also give patient mupirocin cream for treatment of weeping foot wounds.
<Brittney Mosquera DO, Resident - Last Filed: 05/19/25 00:16>
*Pulse Oximetry
SaO2: 99
Oxygen Mode of Delivery: Room air
Patient hypoxic: no
*Critical Care Note
Total Time (30-74mins, 75-104mins- exclusive of procedures): Not Applicable
ED Attending Note
<Brittney Mosquear DO, Resident - Last Filed: 05/19/25 00:16>
-
Portions of this chart may have been created with voice recognition software.� Occasional wrong word or��sound alike� substitutions may have occurred due to the inherent limitations of voice recognition software.
<Austen Varela DO - Last Filed: 05/19/25 00:01>
ED Attending Note
Patient seen and examined by attending physician: Yes
I performed a history and physical exam of patient and discussed management with resident, I reviewed resident's note and agree with documented findings and plan of care.: Yes
ED Attending Note:
I have seen and evaluated the patient with a [id number] encounter. I have spoken to the resident and involved in the medical history, the physical exam, medical decision making.
Evaluation and management service: agree unless noted differently below.
Results interpretation: agree unless noted differently below.
Focused HPI: 55-year-old female presenting for evaluation of bilateral leg edema. She has recently been evaluated for this and it was suspected to be from malnourishment and low albumin. She was recently admitted and received IV albumin and placed
on furosemide and potassium
Physical exam: Sitting in bed comfortably. Eating chips. Significant pitting edema to bilateral lower extremities with small wound to dorsum of left foot without surrounding cellulitic changes
Medical Decision Making: I offered admission for IV Lasix. Patient acknowledges my concern but states she feels comfortable going home since she has a plan with her work checker. I did evaluate recent records indicating recent echo without
diastolic heart failure. I will give a dose of albumin due to her malnourishment and I will give IV Lasix but she does understand return precautions and wants to go home regardless
Discharge Plan
Departure
Patient Disposition: Home (Routine Discharge)
Date of Disposition: 05/19/25
Time of Disposition: 00:07
Patient with high blood pressure during this ER visit?: No
Discharge Problem:
Edema due to hypoproteinemia
Instructions: Swelling
Prescriptions:
No Action
atorvastatin 20 mg Tablet
20 mg PO DAILY
omeprazole 40 mg Capsule,Delayed Release(Dr/Ec)
40 mg PO DAILY
Rexulti 2 mg Tablet
2 mg PO DAILY
Eliquis 5 mg tablet
5 mg PO BID 37 Days Qty: 74 0RF
famotidine 20 mg Tablet
20 mg PO HS 30 Days Qty: 30 0RF
escitalopram oxalate 10 mg Tablet
15 mg PO DAILY 30 Days Qty: 45 0RF
thiamine mononitrate (vit B1) 100 mg Tablet
100 mg PO BID 30 Days Qty: 60 0RF
multivitamin with folic acid [Tab-A-Domenica] 400 mcg Tablet
1 tab PO DAILY 30 Days Qty: 30 0RF
cholecalciferol (vitamin D3) 50 mcg (2,000 unit) capsule
50 mcg PO DAILY Qty: 30 0RF
clonazepam 0.5 mg Tablet
0.5 mg PO BIDPRN PRN (Reason: anxiety) Qty: 6 0RF
Referrals:
Cassius Cruz DO [Family Provider, Family Practice]
Activity Restrictions/Additional Instructions:
Please follow-up with your work checker and PCP outpatient for further management of lower extremity swelling. Please use mupirocin ointment as needed for lower extremity weeping wounds. Please return to the ED with worsening symptoms.
Interventions
Interventions:
*Risk Screen - Suicide Last Done: 05/18/25 21:25
*General Assessment Last Done: 05/18/25 22:14
*Neglect/Abuse Screening Last Done: 05/18/25 21:25
*ED- Fall Risk Assessment Last Done: 05/18/25 22:14
*ED COVID-19 Vaccine History Last Done: 05/18/25 22:14
Discharge Date and Time
Print Language: NEPALI
[2025-05-19 00:16] VITALS: BP 129/76
[2025-05-19] MEDS: LASIX 80 MG IV (00:16)
[2025-05-19] MEDS: BACTROBAN 2% OINTMENT 1 APPLIC TOPICAL (00:23)
[2025-05-19] MEDS: FLEXBUMIN 50 IV (00:23)
[2025-05-19 01:20] VITALS: BP 118/72
== END 2025-05-19 01:20 | disposition home or self-care (01) ==
LOC: EMR 21:17
PROVIDERS: Emergency Medicine; EMERGENCY PHYSICIAN Student in an Organized Health Care Education/Training Program; FAMILY PHYSICIAN Family Medicine Adult Medicine
DX: R60.0 Localized edema (principal); E77.8 Other disorders of glycoprotein metabolism; I10 Essential (primary) hypertension; Z79.01 Long term (current) use of anticoagulants; Z79.899 Other long term (current) drug therapy; Z90.49 Acquired absence of other specified parts of digestive tract; Z98.84 Bariatric surgery status
CPT/HCPCS: 99283; 96365; 96375; 80053; 85025; P9047

== ENCOUNTER → 2025-05-21 13:22 | Outpatient (REF) | payer BC, SELFPAY | LOC: WDC 13:22 | PROVIDERS: ATTENDING PHYSICIAN Family Medicine Adult Medicine; REFERRING PHYSICIAN Obstetrics & Gynecology | DX: Z12.31 Encounter for screening mammogram for malignant neoplasm of breast (principal) | CPT/HCPCS: 77063; 77067 ==

== ENCOUNTER 2025-07-08 12:17 | Inpatient (IN) | payer BC, SELFPAY ==
[2025-07-07 11:27] VITALS: BP 89/61
[2025-07-07 12:05] LABS: Hematocrit 30.2 % (37.0-47.0); Hemoglobin 10.1 g/dL (12.0-16.0); Mean Corp Hgb Conc. 33.4 g/dL (33.0-37.0); Mean Corpuscular Volume 90.7 fL (81.0-99.0); Nucleated Red Blood Cells % 0 %; Platelet Count 226 10^3/uL (130-400); Red Cell Dist. Width 11.9 % (11.5-14.5)
[2025-07-07 12:27] LABS: AST (SGOT) 28 U/L (14-36); Albumin 4.2 g/dl (3.5-5.0); Blood Urea Nitrogen 45 mg/dl (7-17); Calcium 9.7 mg/dl (8.4-10.2); Carbon Dioxide 25 mmol/L (22-30); Chloride 101 mmol/L (98-107); Glucose 97 mg/dl (70-99); Potassium 3.1 mmol/L (3.5-5.1); Total Protein 7.0 g/dl (6.3-8.2); eGFR 22.02
[2025-07-07 12:38] LABS: Troponin I < 0.012 ng/ml
[2025-07-07 12:57] LABS: ALT (SGPT) 22 U/L (0-35); Alkaline Phosphatase 83 U/L (38-126); Sodium 137 mmol/L (135-145)
[2025-07-07 13:43] VITALS: BP 115/65
--- NOTE | 2025-07-07 13:59 | ED.GENMED ---
History of Present Illness
General
Chief Complaint: Swelling
Source: patient, records, spouse, previous radiology exam and previous hospital records
Exam Limitations: none
Time Seen by Provider: 07/07/25 13:20
Nursing documentation reviewed up to this point in time: agreed with
History of Present Illness
History of Present Illness:
55-year-old female medically complex, status post gastric bypass status post Mounjaro usage over 150 pound weight loss admitted a few months ago with KAREN edema, discharged home eventually, presents today with fatigue low blood pressure she has had
edema of her lower extremities, no fevers, no abdominal pain baseline creatinine is 1.3 she says, scheduled to see nephrology hematology cardiology as an outpatient, did recently see an dietitian as she has low albumin
Past History
Past History
ED Past Medical History: HTN and Other (chronic abdominal pain; pancreatitis, )
ED Past Surgical History: Cholecystectomy, Gynecological and Other (gastric bypass, hernia)
Social History
Tobacco: Non-smoker
Alcohol: None
Drug: None
Personal:
Living: with family
Employment: Employed
Review of Systems
Review of Systems
All Other Systems: Not applicable
Constitutional: Reports fatigue; Denies fever or weight loss
EENT: Reports no symptoms
Respiratory: Reports no symptoms
Cardiac: Reports no symptoms
ABD/GI: Reports no symptoms
: Reports no symptoms
Musculoskeletal: Reports edema
Skin: Reports no symptoms
Phy Exam
Physical Exam
Physical Exam:
Physical Exam
General: no apparent distress, not acutely ill
Neck: Dry lip
Heart: s1/s2 regular rate and rhythm, no murmur. equal radial pulses.
Lungs: no acute respiratory distress. clear bilaterally
Abdomen: Soft not
Neuro: alert and oriented. no focal neurological deficits
Skin: no rash
Psychiatric: well kept. interactive and cooperative
Extremities: Minimal appreciable edema
Scores
Heart Failure Risk
Heart Failure Risk Score: Not Applicable
Course
Orders/Labs/Results
Orders:
Orders
07/07/25 11:32
Electrocardiogram (*1) Urgent
Reason for Study: Chest Pain
EKG- Treatment ONCE
07/07/25 11:48
Complete Blood Count/With Diff Urgent
Comprehensive Metabolic Panel Urgent
Troponin I Urgent
07/07/25 13:37
CR Chest - 2 Views Urgent
Comment:
Reason For Exam: sob
07/07/25 13:53
Add On- LAB Urgent
Tests Added?: magnesium
07/07/25 15:00
Lactated Ringers [Lr] 1,000 ml IV 200 mls/hr
Abnormal Lab Results
07/07/25
11:48
RBC 3.33 L 10^6/uL
(4.20-5.40)
Hgb 10.1 L g/dL
(12.0-16.0)
Hct 30.2 L %
(37.0-47.0)
MPV 12.2 H fL
(7.4-10.4)
Potassium 3.1 L mmol/L
(3.5-5.1)
BUN 45 H mg/dl
(7-17)
Creatinine 2.5 H mg/dL
(0.6-1.0)
07/07/25 11:48
07/07/25 11:48
Vital Signs
Initial and Last Documented VS:
Initial Vital Signs
Temp Pulse Resp BP Pulse Ox
98 F 59 16 89/61 100
07/07/25 11:27 07/07/25 11:27 07/07/25 11:27 07/07/25 11:27 07/07/25 11:27
Last Documented Vital Signs
Temp Pulse Resp BP Pulse Ox
98 F 58 12 115/65 100
07/07/25 11:27 07/07/25 13:43 07/07/25 13:43 07/07/25 13:43 07/07/25 13:59
*Pulse Oximetry
SaO2: 100
Oxygen Mode of Delivery: Room air
Patient hypoxic: no
*Critical Care Note
Total Time (30-74mins, 75-104mins- exclusive of procedures): Not Applicable
Update Note
Update Note:
Update, labs noted prior to her labs noted discharge summary noted chest x-ray today noted will start volume resuscitation low threshold to admit due to KAREN medically complexity
ED Attending Note
-
Portions of this chart may have been created with voice recognition software.� Occasional wrong word or��sound alike� substitutions may have occurred due to the inherent limitations of voice recognition software.
Discharge Plan
Departure
Patient Disposition: Admit
Date of Disposition: 07/07/25
Time of Disposition: 14:28
Admit to: Med/Surg
Presentation/result/management discussed w/ accepting MD/DO: Hospitalist
Patient with high blood pressure during this ER visit?: No
Condition: Fair
Discharge Problem:
Acute hypokalemia, Acute kidney injury
Prescriptions:
No Action
atorvastatin 20 mg Tablet
20 mg PO DAILY
omeprazole 40 mg Capsule,Delayed Release(Dr/Ec)
40 mg PO DAILY
Rexulti 2 mg Tablet
2 mg PO DAILY
Eliquis 5 mg tablet
5 mg PO BID 37 Days Qty: 74 0RF
famotidine 20 mg Tablet
20 mg PO HS 30 Days Qty: 30 0RF
escitalopram oxalate 10 mg Tablet
15 mg PO DAILY 30 Days Qty: 45 0RF
thiamine mononitrate (vit B1) 100 mg Tablet
100 mg PO BID 30 Days Qty: 60 0RF
multivitamin with folic acid [Tab-A-Domenica] 400 mcg Tablet
1 tab PO DAILY 30 Days Qty: 30 0RF
cholecalciferol (vitamin D3) 50 mcg (2,000 unit) capsule
50 mcg PO DAILY Qty: 30 0RF
clonazepam 0.5 mg Tablet
0.5 mg PO BIDPRN PRN (Reason: anxiety) Qty: 6 0RF
Interventions
Interventions:
*Risk Screen - Suicide Last Done: 07/07/25 11:27
*Neglect/Abuse Screening Last Done: 07/07/25 11:27
Discharge Date and Time
Print Language: AZERBAIJANI
--- NOTE | 2025-07-07 14:37 | HPS.HSE ---
Addendum entered and electronically signed by Haider Hansen MD 07/07/25 15:45:
This is an addendum to H&P written by Cathy Barba on 07/07/2025. �Patient seen and examined independently with [employer].
55-year-old female past medical history of diabetes, obesity status post gastric bypass, anxiety/depression, presenting with low blood pressure and increasing edema in her lower extremities. �No abdominal pain or fever. �No respiratory symptoms. �No
vomiting or diarrhea. �She has continued lower appetite. �Patient has dry mouth.
Patient was recently admitted from 05/02 to 05/12 for nausea vomiting and diarrhea. �She was found to have hyponatremia, hypokalemia and KAREN. �He was also found to have right lower extremity DVT. �Started heparin drip and Eliquis on discharge.
�Patient required Levophed temporarily. �Patient was found to have moderate bilateral pleural effusions, anasarca. �Endocrine evaluated patient and adrenal insufficiency was ruled out with cosyntropin test. �Patient has severe bradycardia secondary
to benzo overdose and polypharmacy with midodrine. �Patient had thoracentesis on the right side with 1.1 L drainage showed transudative fluid likely secondary to hypoalbuminemia secondary to poor p.o. intake. �Patient was seen by psychiatry and
Lexapro was decreased appetite improved.
Vital signs show blood pressure 89/61. �After IV fluids blood pressure�improved to 115/65.
Labs showed stable anemia 10.1.
Creatinine of 2.5 from 1.5. �Potassium 3.1.
Chest x-ray shows no acute cardiopulmonary process.
Patient with KAREN and hypotension likely prerenal from hypovolemia from decreased p.o. intake. �Hypokalemia secondary to Lasix. �Continue IV fluids. �Hold diuretics and propranolol. �Patient also with bilateral lower extremity edema, likely from
venous insufficiency. �Continue compression socks. �Replete potassium.
Original Note:
Family Physician
-
Family Physician: Cassius Cruz
Chief Complaint
-
bilateral lower extremity edema
History of Present Illness
Patient is a 55-year-old female with past medical history significant for hypertension, hyperlipidemia, depression/anxiety, GERD and Crohn's disease who presented to [facility] ED for evaluation of bilateral lower extremity edema. Patient states she feels
the edema in her ankles and feet has slightly increased starting early in week (Saturday/Saturday) and has not improved so felt she needed to come to ED to be sure she was not getting as sick as she was with previous hospitalization. She reports that
she thinks Lasix is not as effective as it has been and that she has had a few episodes of feeling she needs to go to the bathroom and not going at all. She does report scheduled appointments with hematology, cardiology and nephrology out patient
all for the next few weeks. She denies any fever, chills, cough, shortness of breath, chest pain, nausea, vomiting, constipation or diarrhea.
Medical History
Past Medical History
Past Medical History: Reports Other
Additional Past Medical History:
hypertension
hyperlipidemia
depression/anxiety
GERD
anemia
Crohn's disease
Past Surgical History: Reports Other
Additional Past Surgical History:
cholecystectomy
hernia repair
gastric bypass
breast reduction surgery
bilateral shoulder surgeries
tonsillectomy
tummy tuck
ESTEBAN
eye surgery
r rotator cuff surg
Social History
Tobacco: Smoker (1/2 pack per day )
Alcohol: None
Drug: None
Personal:
Living: With Family
Employment: Not Employed (sick leave )
Family History
Family History: Other (Mother: breast cancer, HTN; Sister: HTN )
Allergies / Home Medications
Allergies reflects when Allergies were last updated in [facility].
Home Medications with original date entered in [facility]
Allergy/Medication List:
Allergies
Allergy/AdvReac Type Severity Reaction Status Date / Time
ciprofloxacin (From Cipro) Allergy Rash Verified 07/07/25 11:27
Home Medications
atorvastatin 20 mg tablet 20 mg PO QPM High Cholesterol 01/16/25
omeprazole 40 mg capsule,delayed release 40 mg PO DAILY Gastrointestinal Issue 05/02/25
apixaban 5 mg tablet (Eliquis) 5 mg PO BID 37 days #74 tabs 05/03/25
cholecalciferol (vitamin D3) 50 mcg (2,000 unit) capsule 50 mcg PO DAILY #30 caps 05/12/25
escitalopram oxalate 10 mg tablet 15 mg (1.5 x 10 mg) PO DAILY 30 days #45 tabs 05/12/25
famotidine 20 mg tablet 20 mg PO HS 30 days #30 tabs 05/12/25
clonazepam 1 mg tablet 1 mg PO BID 07/07/25
eszopiclone 3 mg tablet (Lunesta) 3 mg PO HS 07/07/25
furosemide 80 mg tablet (Lasix) 120 mg PO DAILY 07/07/25
potassium chloride 20 mEq tablet,extended release 20 meq PO DAILY 07/07/25
propranolol 10 mg tablet 10 mg PO BID 07/07/25
spironolactone 25 mg tablet 12.5 mg PO DAILY 07/07/25
Review of Systems
-
History Source: Patient
Constitutional: Reports Weight Loss; Denies Fever, Fatigue, Night Sweats or Chills
EENT: Reports Other (dry mouth ); Denies Sore Throat
Respiratory: Denies Cough or Trouble Breathing
Cardiac: Denies Chest Pain, Diaphoresis, Palpitations or Syncope
Abdomen/GI: Denies Abdominal Pain, Nausea, Vomiting, Diarrhea or Constipated
: Reports Difficulty Voiding (few episodes of sensation of needing to urinate with no urination ); Denies Dysuria, Frequency or Urgency
Musculoskeletal: Reports Joint Swelling (mild edema to bilateral ankles ) and Edema (mild bilateral lower extremity edema )
Skin: Denies Rash
Neurological: Denies Dizzy, Headache, Weakness or Numbness
Endocrine: Denies Polyuria or Polydipsia
Psych: Reports Anxiety
Physical Exam
Vital Signs
Vital Signs
Temp Pulse Resp BP Pulse Ox
98 F 58 12 115/65 100
07/07/25 11:27 07/07/25 13:43 07/07/25 13:43 07/07/25 13:43 07/07/25 13:59
Physical Exam
General: No Apparent Distress, Comfortable, Conversant and Cachectic
HEENT: NormoCephalic, Atraumatic, Nose Appears Normal and Ears Appear Normal
Respiratory: Clear and Non Labored Respirations; No Wheezes, Rales, Rhonchi or Crackles
Cardiac: S1/S2, Regular Rhythm and Peripheral Edema (mild bilateral lower extremity edema ); No Murmur, Rub or Gallop
GI: Soft, Non Tender, Non Distended and Normal Bowel Sounds
Genito-urinary: Deferred by me
Musculoskeletal: No Clubbing and No Cyanosis
Skin: Warm and IV/Catheter Site
Neuro: Nonfocal/grossly intact
Psych: Intact Judgment/Insight and Anxious
Laboratory Results
-
07/07/25 11:48
07/07/25 11:48
Laboratory Results
Total Bilirubin 0.7 mg/dl (0.2-1.3) 07/07/25 11:48
AST 28 U/L (14-36) 07/07/25 11:48
ALT 22 U/L (0-35) 07/07/25 11:48
Alkaline Phosphatase 83 U/L (38-126) 07/07/25 11:48
Troponin I < 0.012 ng/ml 07/07/25 11:48
Data Reviewed
-
Diagnostic Radiology: Report Reviewed by me (CXR: No acute cardiopulmonary process.)
Medical Tests (Nuc Med, Echo, EKG etc): Report Reviewed by me (EKG: SINUS BRADYCARDIA)
Lab Data: Labs Reviewed by me (hgb 10.1, hct 30.2, K+ 3.1, BUN 45, creat 2.5, eGFR 22.02, )
Impression/Plan
-
IMPRESSION/PLAN:
#acute kidney injury likely prerenal
BUN 45, creat 2.5, eGFR 22.02
EKG: SINUS BRADYCARDIA
CXR: No acute cardiopulmonary process.
- Admit to telemetry
- hold diuretics
- bladder scan/straight cath protocol
- IVF NSS 80cc/hr
- trend BMP
#hypokalemia
K+ 3.1
- replete
- monitor electrolytes, replete as needed
#hypertension
- hold furosemide, propranolol and spironolactone
#hyperlipidemia
- continue atorvastatin
#depression/anxiety
- continue clonazepam and escitalopram
#GERD
- continue famotidine and omeprazole
#anemia
hgb 10.1, hct 30.2
- appears stable, monitor CBC
#Hx DVT
- continue Eliquis
#Crohn's disease
Code status: full code
DVT prophylaxis: Eliquis
[2025-07-07 15:15] LABS: Magnesium 1.9 mg/dl (1.6-2.3)
[2025-07-07] MEDS: LR 1000 IV (15:21)
[2025-07-07] MEDS: KCL 40 MEQ PO (15:51)
[2025-07-07] MEDS: KLONOPIN 1 MG PO ×2 (15:51→19:38)
[2025-07-07 15:53] VITALS: BMI 21.6
--- NOTE | 2025-07-07 17:08 | EDRN ---
Report tubed 401-1 not ready.
--- NOTE | 2025-07-07 17:30 | EDCM ---
CM reviewed chart and met with pt bedside in ED. Lives with her and 2 sons in 2 story home, 3 [address], first floor half bath, full flight to second floor bedroom and full bath.
Independent in ADLs, personal care and ambulation at baseline. Has quad cane and RW, uses one of them when she leaves the home. Drives but only short distances.
Hx [facility] after admission in April but only stayed an hour and had family pick her up.
Is interested in Home PT.
Confirms prescription coverage, BLUNT reviewed and signed.
PCP: Cassius Cruz
Pharmacy: [facility]
CM will continue to follow for all discharge planning needs.
[2025-07-07 18:15] VITALS: BP 108/57; BMI 22.0
[2025-07-07 19:26] VITALS: BP 99/51
[2025-07-07] MEDS: ELIQUIS 5 MG PO (19:36)
[2025-07-07] MEDS: LIPITOR 20 MG PO (19:36)
[2025-07-07] MEDS: NSS 1000 IV (19:38)
[2025-07-07] MEDS: AMBIEN 10 MG PO (21:32)
[2025-07-07] MEDS: PEPCID 20 MG PO (21:32)
[2025-07-07 23:43] VITALS: BP 95/54
[2025-07-08 03:52] VITALS: BP 91/49
[2025-07-08 07:48] VITALS: BP 93/45
[2025-07-08] MEDS: ELIQUIS 5 MG PO ×2 (07:48→19:52)
[2025-07-08] MEDS: VITAMIN D3 (cholecalciferol) 50 MCG PO (07:48)
[2025-07-08] MEDS: PROTONIX 40 MG PO (07:48)
[2025-07-08] MEDS: KLONOPIN 1 MG PO ×2 (07:48→22:26)
[2025-07-08] MEDS: LEXAPRO 15 MG PO (07:48)
[2025-07-08] MEDS: KCL 20 MEQ PO (07:49)
[2025-07-08] MEDS: NSS 1000 IV ×2 (07:51→22:28)
[2025-07-08 08:15] LABS: Blood Urea Nitrogen 40 mg/dl (7-17); Calcium 9.3 mg/dl (8.4-10.2); Carbon Dioxide 25 mmol/L (22-30); Chloride 107 mmol/L (98-107); Estimated Creatinine Clearance 28 ml/min; Glucose 105 mg/dl (70-99); Hematocrit 27.6 % (37.0-47.0); Hemoglobin 9.1 g/dL (12.0-16.0); Mean Corp Hgb Conc. 33.0 g/dL (33.0-37.0); Mean Corpuscular Volume 92.6 fL (81.0-99.0); Platelet Count 163 10^3/uL (130-400); Potassium 2.8 mmol/L (3.5-5.1); Red Cell Dist. Width 11.9 % (11.5-14.5); Sodium 138 mmol/L (135-145); eGFR 25.67
[2025-07-08] MEDS: KCL 40 MEQ PO (09:09)
[2025-07-08 11:35] VITALS: BP 87/54
[2025-07-08 12:00] VITALS: BMI 22.0
--- NOTE | 2025-07-08 12:21 | W.PN.HOSP.TC ---
Addendum entered and electronically signed by Daniel Helton DO 07/09/25 14:22:
Additional diagnosis:
Severe Malnutrition
Original Note:
Today's Communication/Plan
-
Assessment / Plan
Assessment / Plan
General: No Apparent Distress, Comfortable and Conversant
HEENT: NormoCephalic, Moist mucous membranes, Atraumatic
Respiratory: Clear and Non Labored Respirations
Cardiac: S1/S2 and Regular Rhythm; No Rub or Gallop
GI: Soft, Non Tender, Non Distended and Normal Bowel Sounds
Musculoskeletal: No Edema, no deformity, significantly decreased muscle bulk throughout
Skin: Warm and dry
: NO Vega
Neuro: Awake, Alert, Nonfocal/grossly intact
Psych: Calm and Intact Judgment/Insight
Ms. Swann is a 55-year-old female with a medical history of Crohn's disease, hypertension, recent right lower extremity DVT (on Eliquis), hepatosteatosis, anxiety, and significant weight loss following gastric bypass surgery and Mounjaro use who
presented to the ED for evaluation of recurrent lower extremity edema. She was recently hospitalized for a similar issue which was likely due to significant hypoalbuminemia with associated pleural effusion for which she underwent right
thoracentesis. After losing more than 100 pounds in the past year (at first this was intentional), she has now trying to slow her weight loss and in fact even gained some weight. Her albumin levels are currently normal and her appetite has
improved. However upon evaluation in the ED she was hypotensive (also a problem during last admission), hypokalemic, as an KAREN with a creatinine of 2.5 but has a recent baseline appears to be around 1.5). Her home diuretics and antihypertensive
medications have been held and she was started on IV fluids. She has been admitted for further evaluation and management.
Lower extremity edema:
- With associated hypokalemia, KAREN, bradycardia, and hypotension
- Suspect this may be related to thyroid or adrenal dysfunction
- Has had recent unintentional weight loss, initially intentional following gastric bypass surgery and Mounjaro use (Mounjaro discontinued)
- Reportedly underwent cosyntropin test to rule out adrenal insufficiency during recent admission here in April 2025
- Will check thyroid function tests
- Remains significantly hypokalemic despite repletion and discontinuation of Lasix
- Albumin level currently appropriate, checked prealbumin
- Will trial oral steroids
- Compression wraps
Hypokalemia:
- Holding Lasix
- Continue aggressive repletion
- Check urine electrolytes
- Monitor serum levels closely
- Trial of steroids in case this is related to adrenal dysfunction
KAREN:
- Likely has some degree of CKD as a recent baseline creatinine appears to be around 1.5
- Creatinine was 2.5 on admission and only slightly improved to 2.2 on labs this morning
- Continue holding diuretics, continue resuscitative fluids for now
Weight loss:
- Initially intentional, status post gastric bypass and unsure use
- Now patient reports unintentional weight loss
- Appreciate dietitian recommendations
- Continue dietary supplementation
- No evidence of malignancy on recent imaging, however this was done without contrast due to renal insufficiency, will consider repeat imaging with contrast for further evaluation
Hepatic steatosis:
- Continue statin therapy
- Check hepatic synthetic function and will eventually need hepatic ultrasound
- Will need GI follow-up
DVT:
- Right lower extremity, diagnosed during recent admission and April 2025
- Continue anticoagulation with Eliquis
DVT prophylaxis: Eliquis
CODE STATUS: Full code
Total time spent on today's encounter was 56 minutes
Anticipated Discharge: > 48 hours
Subjective/Interval History
-
Date of Service: July 08, 2025
Patient was seen and examined at bedside this morning. Feeling well however blood pressure remains significantly low despite discontinuing Lasix and administering resuscitative IV fluids.
Objective Data
-
Labs:
Laboratory Results
07/08/25 07/08/25
06:24 14:00
WBC 5.3
Hgb 9.1 L
Hct 27.6 L
Plt Count 163 D
Sodium 138 Pending
Potassium 2.8 L Pending
Chloride 107 Pending
Carbon Dioxide 25 Pending
BUN 40 H Pending
Creatinine 2.2 H Pending
Glucose 105 H Pending
Calcium 9.3 Pending
Vital Signs:
Vital Signs
Temp Pulse Resp BP Pulse Ox
98 F 56 18 87/54 98
07/08/25 11:35 07/08/25 11:35 07/08/25 11:35 07/08/25 11:35 07/08/25 11:35
I&O
07/07/25 07/08/25 07/09/25
06:59 06:59 06:59
Intake Total 1440 / 1440
Balance 1440 / 1440
Review of Systems
-
History Source: Patient
All other systems: Reviewed and negative
Physical Exam
-
General: No Apparent Distress
[2025-07-08] MEDS: DELTASONE 40 MG PO (12:26)
[2025-07-08 13:22] LABS: Blood Urea Nitrogen 37 mg/dl (7-17); Calcium 8.9 mg/dl (8.4-10.2); Carbon Dioxide 26 mmol/L (22-30); Chloride 107 mmol/L (98-107); Estimated Creatinine Clearance 31 ml/min; Glucose 88 mg/dl (70-99); Magnesium 1.9 mg/dl (1.6-2.3); Potassium 4.0 mmol/L (3.5-5.1); Sodium 137 mmol/L (135-145); eGFR 28.78
[2025-07-08 14:19] LABS: TSH < 0.02 uIU/ml (0.47-4.68)
[2025-07-08 15:45] VITALS: BP 101/51; BP 87/51; BP 92/54; PULSE 57; PULSE 58; PULSE 63
--- NOTE | 2025-07-08 16:24 | CM ---
Spoke with patient in room .
She said she was ready for discharge.
She said her or son will [place] home [place].
Offered VN she declined need.
PLAN Home no needs
[2025-07-08] MEDS: LIPITOR 20 MG PO (17:03)
[2025-07-08 19:18] VITALS: BP 100/58
[2025-07-08] MEDS: AMBIEN 10 MG PO (22:27)
[2025-07-08 23:35] VITALS: BP 120/74
[2025-07-09] MEDS: TYLENOL 650 MG PO (03:02)
[2025-07-09 03:22] VITALS: BP 119/68
[2025-07-09 07:00] VITALS: BP 112/62
[2025-07-09 08:21] VITALS: BP 112/62
[2025-07-09 08:25] VITALS: BP 112/62; BP 115/66; BP 118/66; PULSE 58; PULSE 60; PULSE 64
[2025-07-09] MEDS: KLONOPIN 1 MG PO (08:52)
[2025-07-09] MEDS: ELIQUIS 5 MG PO (08:52)
[2025-07-09] MEDS: LEXAPRO 15 MG PO (08:52)
[2025-07-09] MEDS: DELTASONE 40 MG PO (08:54)
[2025-07-09 08:55] LABS: INR 1.20; PT 15.5 Sec (11.4-14.6)
[2025-07-09] MEDS: KCL 20 MEQ PO (08:55)
[2025-07-09] MEDS: PROTONIX 40 MG PO (08:55)
[2025-07-09] MEDS: VITAMIN D3 (cholecalciferol) 50 MCG PO (08:55)
[2025-07-09 08:56] LABS: APTT 30.6 Sec (23.4-35.0)
[2025-07-09 09:13] LABS: Blood Urea Nitrogen 31 mg/dl (7-17); Calcium 9.6 mg/dl (8.4-10.2); Carbon Dioxide 22 mmol/L (22-30); Chloride 107 mmol/L (98-107); Estimated Creatinine Clearance 34 ml/min; Glucose 88 mg/dl (70-99); Potassium 4.3 mmol/L (3.5-5.1); Sodium 137 mmol/L (135-145); eGFR 32.66
[2025-07-09 09:17] LABS: Prealbumin (Transthyretin) 12.5 mg/dl (17.6-36.0)
[2025-07-09 09:42] LABS: Cortisol, Random 3.8 ug/dl
--- NOTE | 2025-07-09 10:28 | W.DCSUMMARY ---
Discharge Summary
Discharge Data
Date of Admission: 07/08/25
Date of Discharge: 07/09/25
Total time spent discharging patient (in min): 54
-
Pending Results: No
Hospital Course
Ms. Swann is a 55-year-old female with a medical history of Crohn's disease, hypertension, recent right lower extremity DVT (on Eliquis), anxiety, gastric bypass surgery (1995), and significant weight loss following Mounjaro use (started 1 year
ago, discontinued January 2025) who presented to the ED for evaluation of recurrent lower extremity edema. She was recently hospitalized for a similar issue which was likely due to significant hypoalbuminemia with associated pleural effusion for
which she underwent right thoracentesis. She was also found to have a right lower extremity DVT at that time and started on Eliquis. She lost approximately 100 pounds after starting Mounjaro about a year ago, which she then discontinued in January
2024. Since discontinuing Mounjaro she continued to lose another approximately 60 pounds. She has been working with a dietitian in order to improve her nutrition and gain some weight. Her appetite has improved and her albumin level is normal
although her prealbumin level is low at 12.5. Upon evaluation in the ED she was hypotensive (also a problem during last admission), hypokalemic, and had an KAREN with a creatinine of 2.5 (recent baseline appears to be around 1.5). Her home diuretics
and antihypertensive medications were held and she was started on IV fluids. She was admitted for further evaluation and management.
She remained hypokalemic despite aggressive potassium repletion and a normal magnesium level. She remained hypotensive despite resuscitative IV fluids. Her TSH was undetectable but her free T4 was within normal limits. During last admission she
reportedly was ruled out for adrenal insufficiency. However considering her overall clinical picture now she was started on oral steroids. Her blood pressure and potassium normalized. Her random a.m. cortisol was low at 3.8. She will be
continued on a course of steroids for now and will need to follow-up with her primary care physician and an youth services specialist for further evaluation.
We discussed her recent imaging findings from prior admission showing hepatic steatosis. She was not aware of this diagnosis. However she does have good GI follow-up because of her weight loss and will discuss her hepatic steatosis at her next
appointment. It is possible that her fatty liver is due to her history of obesity. She initially lost a significant amount of weight after her gastric bypass surgery however regained much of it sometime later. More recently, she has lost
approximately 160 pounds over the past year. Considering that some of her recent weight loss was unintentional, especially considering that she had a recent DVT, we discussed the importance of further evaluation for possible malignancy. She had
been discussing this possibility already with some of her physicians. She will discuss this further with her underwriting service representative at their next appointment and with her head of partner development and PCP. She will also discuss her chronic anemia with her
outpatient physicians.
Her kidney function improved with IV fluids and with improvement in her blood pressure. Her creatinine improved to 1.8 on the day of discharge. Her Lasix, spironolactone, and propranolol will continue to be held for now. She has been directed to
follow-up with her PCP and with her patternator regarding whether or not to restart these medications. She should continue to wear compression stockings. Her home Eliquis will be continued. She will need repeat imaging in 1 week to monitor her
renal function and electrolytes. At the time of hospital discharge she was medically stable.
General: No Apparent Distress, Comfortable and Conversant
HEENT: NormoCephalic, Moist mucous membranes, Atraumatic
Respiratory: Clear and Non Labored Respirations
Cardiac: S1/S2 and Regular Rhythm; No Rub or Gallop
GI: Soft, Non Tender, Non Distended and Normal Bowel Sounds
Musculoskeletal: No Edema, no deformity, significantly decreased muscle bulk throughout
Skin: Warm and dry
: NO Vega
Neuro: Awake, Alert, Nonfocal/grossly intact
Psych: Calm and Intact Judgment/Insight
Discharge Plan
-
Patient Disposition: Home (Routine Discharge)
Discharge Diagnosis/Procedures: Hypokalemia, KAREN, and hypotension
Diet: Other diet
Additional Diets: High-protein diet
Blood Work: Basic metabolic panel in 1 week to monitor kidney function and electrolytes
Others Tests: Abdominal and pelvic imaging at the direction of your PCP/underwriting service representative/head of partner development to evaluate for possible malignancy
Activity Restrictions/Additional Instructions:
Ms. Swann is a 55-year-old female with a medical history of Crohn's disease, hypertension, recent right lower extremity DVT (on Eliquis), anxiety, gastric bypass surgery (1995), and significant weight loss following Mounjaro use (started 1 year
ago, discontinued January 2025) who presented to the ED for evaluation of recurrent lower extremity edema. She was recently hospitalized for a similar issue which was likely due to significant hypoalbuminemia with associated pleural effusion for
which she underwent right thoracentesis. She was also found to have a right lower extremity DVT at that time and started on Eliquis. She lost approximately 100 pounds after starting Mounjaro about a year ago, which she then discontinued in January
2024. Since discontinuing Mounjaro she continued to lose another approximately 60 pounds. She has been working with a dietitian in order to improve her nutrition and gain some weight. Her appetite has improved and her albumin level is normal
although her prealbumin level is low at 12.5. Upon evaluation in the ED she was hypotensive (also a problem during last admission), hypokalemic, and had an KAREN with a creatinine of 2.5 (recent baseline appears to be around 1.5). Her home diuretics
and antihypertensive medications were held and she was started on IV fluids. She was admitted for further evaluation and management.
She remained hypokalemic despite aggressive potassium repletion and a normal magnesium level. She remained hypotensive despite resuscitative IV fluids. Her TSH was undetectable but her free T4 was within normal limits. During last admission she
reportedly was ruled out for adrenal insufficiency. However considering her overall clinical picture now she was started on oral steroids. Her blood pressure and potassium normalized. Her random a.m. cortisol was low at 3.8. She will be
continued on a course of steroids for now and will need to follow-up with her primary care physician and an youth services specialist for further evaluation.
We discussed her recent imaging findings from prior admission showing hepatic steatosis. She was not aware of this diagnosis. However she does have good GI follow-up because of her weight loss and will discuss her hepatic steatosis at her next
appointment. It is possible that her fatty liver is due to her history of obesity. She initially lost a significant amount of weight after her gastric bypass surgery however regained much of it sometime later. More recently, she has lost
approximately 160 pounds over the past year. Considering that some of her recent weight loss was unintentional, especially considering that she had a recent DVT, we discussed the importance of further evaluation for possible malignancy. She had
been discussing this possibility already with some of her physicians. She will discuss this further with her underwriting service representative at their next appointment and with her head of partner development and PCP. She will also discuss her chronic anemia with her
outpatient physicians.
Her kidney function improved with IV fluids and with improvement in her blood pressure. Her creatinine improved to 1.8 on the day of discharge. Her Lasix, spironolactone, and propranolol will continue to be held for now. She has been directed to
follow-up with her PCP and with her patternator regarding whether or not to restart these medications. She should continue to wear compression stockings. Her home Eliquis will be continued. She will need repeat imaging in 1 week to monitor her
renal function and electrolytes. At the time of hospital discharge she was medically stable.
Referrals:
Cassius Cruz DO [Family Provider, [facility]]
Prescriptions:
New
hydrocortisone 5 mg capsule, sprinkle
10 mg PO BID 30 Days Qty: 120 0RF
Continued
atorvastatin 20 mg Tablet
20 mg PO QPM
omeprazole 40 mg Capsule,Delayed Release(Dr/Ec)
40 mg PO DAILY
clonazepam 1 mg Tablet
1 mg PO BID
eszopiclone [Lunesta] 3 mg Tablet
3 mg PO HS
Eliquis 5 mg tablet
5 mg PO BID
famotidine 20 mg tablet
20 mg PO HS
escitalopram oxalate 10 mg tablet
15 mg PO DAILY
cholecalciferol (vitamin D3) 50 mcg (2,000 unit) capsule
50 mcg PO DAILY
Discontinued
spironolactone 25 mg Tablet
12.5 mg PO DAILY
propranolol 10 mg Tablet
10 mg PO BID
furosemide [Lasix] 80 mg Tablet
120 mg PO DAILY
potassium chloride 20 mEq Tablet Extended Release
20 meq PO DAILY
Discharge Orders:
Discharge Patient (As Directed); Ordered 07/09/25
Ordered By: Daniel Helton
Discharge Date and Time
Print Language: BURKINAN
--- NOTE | 2025-07-09 11:02 | CM ---
Met pt at bedside. Re-offered VN; declined. Will transport home via car with . D/C home, no needs
[2025-07-09 11:12] VITALS: BP 99/55
--- NOTE | 2025-07-09 13:28 | PN.CDI ---
CDI
- -
CDI:
Physician Documentation Request
Admit Date: 07/08/25 12:17
Dear Doctor Sunitha,
07/08 notes and assessment state 'subcutaneous loss over tricep- severe, orbital - severe. Muscle loss over pectorals-severe, clavicle-severe, buccal-severe, temporal-severe. Nutrient intake </= 75% estimated energy needs, greater than or equal to
1 month. She lost about 70lb in a hort amount of time when she was on mounjaro. mounjaro has been discontinued but she has continued to lose another 40lb. Complains that her appetite has not returned and is struggling with malnutrition related
hair loss, poor dentition, ill fitting dentures. Pt meets criteria for severe protein calorie malnutrition of chronic illness with >7.5% wt loss x 3 months, prolonged poor intake prior to admit <75% x 1 month, severe subcutaneous fat (orbital,
tricep) and severe muscle loss (temporal, buccal, clavicle, pectoralis)'
Based on the above information and your assessment, which of the following most accurately represents the patient's nutritional status?
Severe Malnutrition
Other (please specify)
[place] Criteria ([facility] 2017)
2 or more criteria must be present for either
non severe or severe malnutrition
Note that the criteria differs related to the
presence of an acute or chronic illness
Acute Illness Chronic Illness
Energy Intake Non Severe: <75% for >7 days Non Severe: <75% for >1 month
Severe: <50% for >5 days Severe: <75% for >1 month
Weight Loss Non Severe: 1-2% over 1 week Non Severe: 5% over 1 month
5% over 1 month 7.5% over 3 months
7.5% over 3 months 10% over 6 months
1 year N/A 20% over 1 year
Severe: >2% over 1 week Severe: >5% over 1 month
>5% over 1 month >7.5% over 3 months
>7.5% over 3 months >10% over 6 months
1 year N/A >20% over 1 year
Body Fat Non Severe: Mild Decrease Non Severe: Mild Loss
Severe: Moderate Decrease Severe: Severe Loss
Muscle Mass Non Severe: Mild Decrease Non Severe: Mild Loss
Severe: Moderate Decrease Severe: Severe Loss
Fluid Accumulation Non Severe: Mild Accumulation Non Severe: Mild Accumulation
Severe: Moderate to severe Severe: Moderate to severe
accumulation accumulation
Reduced Dining Car Conductor Strength Non Severe: N/A Non Severe: N/A
Severe: Measurably reduced Severe: Measurably reduced
Use of terms such as suspected, likely, concern for, or probable (associated with a specific diagnosis that is being evaluated, monitored, or treated as if it exists) are acceptable and can be coded in the inpatient setting, when documented at the
time of discharge.
Thank you,
Sheeba Hirsch RN, BSN
CDI Specialist
tiger text
Please use your independent medical judgment in providing your response.
== END 2025-07-09 12:30 | disposition home or self-care (01) | DRG 314 ==
LOC: 4 EAST ACU 12:17
PROVIDERS: Nurse Practitioner Family; Student in an Organized Health Care Education/Training Program; ADMITTING PHYSICIAN Hospitalist; ATTENDING PHYSICIAN Internal Medicine; EMERGENCY PHYSICIAN Emergency Medicine; FAMILY PHYSICIAN Family Medicine Adult Medicine
DX: I95.9 Hypotension, unspecified (principal); E43 Unspecified severe protein-calorie malnutrition; N17.9 Acute kidney failure, unspecified; K50.90 Crohn's disease, unspecified, without complications; J90 Pleural effusion, not elsewhere classified; E87.1 Hypo-osmolality and hyponatremia; E87.6 Hypokalemia; E11.9 Type 2 diabetes mellitus without complications; F41.9 Anxiety disorder, unspecified; F32.A Depression, unspecified; D64.9 Anemia, unspecified; K21.9 Gastro-esophageal reflux disease without esophagitis; E78.5 Hyperlipidemia, unspecified; I10 Essential (primary) hypertension; Z82.49 Family history of ischemic heart disease and other diseases of the circulatory system; Z80.3 Family history of malignant neoplasm of breast; F17.210 Nicotine dependence, cigarettes, uncomplicated; Z68.22 Body mass index [BMI] 22.0-22.9, adult; Z86.718 Personal history of other venous thrombosis and embolism; Z98.84 Bariatric surgery status; E88.09 Other disorders of plasma-protein metabolism, not elsewhere classified; K76.0 Fatty (change of) liver, not elsewhere classified; Z79.01 Long term (current) use of anticoagulants; T50.1X5A Adverse effect of loop [high-ceiling] diuretics, initial encounter; E86.1 Hypovolemia; G89.29 Other chronic pain; I87.2 Venous insufficiency (chronic) (peripheral)
CPT/HCPCS: 71046; 80048; 80053; 82533; 83735; 84100; 84133; 84134; 84300; 84439; 84443; 84484; 85025; 85027; 85610; 85730; 93005; 96360; 96361; 99285; 99406

== ENCOUNTER 2025-07-23 06:16 | Outpatient (RCR) | payer BC, SELFPAY | END 2025-07-23 23:59 | disposition home or self-care (01) | LOC: RPT 06:16 | PROVIDERS: ATTENDING PHYSICIAN Internal Medicine Cardiovascular Disease; FAMILY PHYSICIAN Family Medicine Adult Medicine | DX: I89.0 Lymphedema, not elsewhere classified (principal); M62.81 Muscle weakness (generalized); Z73.6 Limitation of activities due to disability; R26.2 Difficulty in walking, not elsewhere classified | CPT/HCPCS: 97110; 97163; 97530 ==

== ENCOUNTER → 2025-08-09 15:35 | Outpatient (REF) | payer BC, SELFPAY | LOC: RAD 15:35 | PROVIDERS: ATTENDING PHYSICIAN Internal Medicine Nephrology; FAMILY PHYSICIAN Family Medicine Adult Medicine | DX: N18.30 Chronic kidney disease, stage 3 unspecified (principal) | CPT/HCPCS: 76770 ==

== ENCOUNTER → 2025-08-13 08:22 | Outpatient (REF) | payer BC, SELFPAY | LOC: EMG 08:22 | PROVIDERS: ATTENDING PHYSICIAN Psychiatry & Neurology Neurology; FAMILY PHYSICIAN Family Medicine Adult Medicine | DX: G62.9 Polyneuropathy, unspecified (principal); R20.0 Anesthesia of skin | CPT/HCPCS: 95886; 95910 ==